=== PATIENT | male | born 1935 | race Caucasian/White ===

== ENCOUNTER 2016-09-16 14:25 | Emergency (ER) | payer OTHER, MEDICARE ==
[2016-09-16 14:52] LABS: COLOR YELLOW; LEUKOCYTE ESTERASE,URINE NEGATIVE (NEGATIVE); NITRITE,URINE NEGATIVE (NEGATIVE); PH,URINE 5.5 (5.0-7.5)
[2016-09-16 15:00] LABS: HYALINE CASTS 0-1 /lpf (0-1); MUCUS TRACE /lpf (NONE-1+); WBC,URINE NONE SEEN /hpf (0-3)
--- NOTE | 2016-09-16 15:53 | UCPHY ---
[id number] IN LAST 2 DAYS, INTERMITTENT JABBING PAIN, DENIES N/V/D, DENIES FEVERS, DENIES URINARY S/SX, REPORTS NORMAL BOWEL MOVEMENT TODAY HPI/ROS: Chief complaint: Abdominal pain HPI: 80-year-old male presenting with 2 days of intermittently severe right- sided abdominal and flank pain. Patient states he has been having slight pain occasionally for the past 6 weeks or so but pain became significantly worse yesterday. It does wax and wane but has not gone completely away. He states however that the pain did resolve just prior to his arrival to the urgent care. He was has a history of chronic renal disease and saw his renal doctor a week ago who told him that his renal function is at its baseline. He has also seen his primary care doctor several weeks ago for similar but milder symptoms and was told that should symptoms worsen he should present to the emergency department for further evaluation. He denies any fevers or chills. No nausea vomiting or diarrhea. No chest pain or shortness of breath. He has not had any constipation. ROS: 10 point Review of Systems is negative except as noted in the HPI. Physical exam: Gen: Awake, Alert, No Distress HEENT: Nose: no rhinorrhea Eyes: PERRLA, EOMI Mouth: Moist mucosa Neck: Supple, no JVD Chest: nontender, lungs clear to auscultation Heart: S1, S2 normal, no murmur Abd: Soft, non-tender, no guarding Back: no CVA tenderness, no midline tenderness Ext: no edema, non-tender Skin: no rash Neuro: CN II-XII intact, Sensation grossly intact, Strength 5/5 in bilateral upper and lower extremities - Medical/Surgical History Hx Asthma: No Hx Chronic Respiratory Disease: No Hx Diabetes: No Hx Cardiac Disease: Yes Hx Renal Disease: Yes Hx Cirrhosis: No Hx Alcoholism: No Hx HIV/AIDS: No Hx Splenectomy or Spleen Trauma: No Other PMH: MED HX-THYROID,CHOLESTEROL,HTN,KIDNEY FAILURE,DILATED CARDIAC MYOPATHY,. SURG-DANA,BOWEL OBSTRUCTION,PACE MAKER-DUAL CHAMBER - Family History Significant Family History: No pertinent family hx - Social History Smoking Status: Former smoker Constitutional: Initial Vital Signs Temperature (C) 35.5 C L 09/16/16 14:42 Heart Rate 67 09/16/16 14:42 Respiratory Rate 18 09/16/16 14:42 Blood Pressure 133/83 H 09/16/16 14:42 O2 Sat (%) 97 09/16/16 14:42 O2 Delivery Mode Room Air Allergies/Adverse Reactions: adhesive [Adhesive] Allergy (Verified 09/16/16 14:42) Home Medications: Medication Instructions Recorded Atenolol Unk Dose 11/21/15 Atorvastatin Unk Dose 11/21/15 Calcitrol Unk Dose 11/21/15 Enalapril Unk Dose 11/21/15 Levothyroxine Unk Dose 11/21/15 Pantoprazole Unk Dose 11/21/15 Medical Decision Making ED Course/Re-evaluation: CT abdomen pelvis without contrast. No stones. No findings to explain right- sided abdominal flank pain. Interpreted by Dr. Connors. 72-year-old male presenting with right-sided flank abdominal pain. He has a benign abdomen here with no pain. Does have some slight hematuria without infection. There are no stones on his CT with no hydroureter. Otherwise unremarkable CT scan of his bili with incidental findings but nothing acute. He is pain-free now. Will discharge with follow up with his primary care physician instructions return for any worsening. - Data Points Laboratory Results: 09/16/16 14:45 Urine Color YELLOW Urine Appearance CLEAR Urine pH 5.5 (5.0-7.5) Ur Specific [place] 1.010 (1.002-1.030) Urine Protein 2+ H (NEGATIVE) Urine Ketones NEGATIVE (NEGATIVE) Urine Blood TRACE H (NEGATIVE) Urine Nitrate NEGATIVE (NEGATIVE) Urine Bilirubin NEGATIVE (NEGATIVE) Urine Urobilinogen 0.2 EU (0.2-1.0) Ur Leukocyte Esterase NEGATIVE (NEGATIVE) Urine RBC 3-5 H /hpf (0-3) Urine WBC NONE SEEN /hpf (0-3) Ur Epithelial Cells TRACE /lpf (NONE-1+) Hyaline Casts 0-1 /lpf (0-1) Urine Mucus TRACE /lpf (NONE-1+) Urine Glucose NEGATIVE (NEGATIVE) Departure - Departure Disposition: Home, Routine, Self-Care Clinical Impression: Abdominal pain Condition: Good Instructions: Abdominal Pain (ED) Additional Instructions: Return Urgent Care or go to the nearest emergency department for worsening pain , nausea, vomiting, fevers, chills, or any other concerns. Otherwise follow up with your primary care physician in 3-4 days for any concerns. There is a small nodule in your left kidney which could be evaluated further. Follow up with your kidney doctor for further evaluation of this. Referrals: James Young, [Primary Care Provider] - As per Instructions - PQRS PQRS Measurement: 134: Depression screening and followup, PRIME MD-PHQ2 (12 years and older) Over the last 2 weeks, how often have you been bothered by any of the following problems? 1. Feeling down, depressed, or hopeless? 2. Little interest or pleasure in doing things? Patient answered no to both 1 and 2 130: Documentation of medications. Reviewed all patient medications, doses, route and frequency. 226: Do you smoke? No. 47: 65 and older: Advanced care planning. Patient designates surrogate decision maker as spouse Patient has advanced directive. 51: 18 years old and older with diagnosis of COPD, spirometry performance. Patient has no history of COPD 52: 18 years old and older with COPD and symptoms of COPD or FEV1<60% predicted prescribed a B Agonist. Spirometry not performed; equipment not available.
[2016-09-16 16:30] VITALS: BP 112/76; PULSE 66; RESP 16; TEMP 98.1; O2SAT 96
--- NOTE | 2016-09-16 16:49 | CT ---
CT Scan of the Abdomen and Pelvis (Without IV Contrast) Clinical Indications: Abdominal and right flank pain, possible kidney stone, history of kidney stone s, hematuria Technique: No intravenous contrast was given. Multidetector helical CT imaging is performed from th e diaphragm to the symphysis pubis. Dose reduction techniques were utilized. COMPARISON: August 27, 2008 Findings: Abdomen: There is no nephro or ureterolithiasis. There is no hydronephrosis or hydroureter. Both kidn eys demonstrate cortical thinning consistent with medical renal disease. There is atherosclerotic ray cification of the abdominal aorta, which involves the origin of both main renal arteries. There is a new small 9 mm dense cortical nodule associated with the mid left kidney that may represent a small h emorrhagic cyst or solid nodule that is felt unlikely to be the source for hematuria. There is a large duodenal diverticulum adjacent to the medial wall of the descending duodenum, that w ould likely obscure access to the patient's biliary tree if he ever required an ERCP. This is larger than in 2008. Since there is no adjacent edema, this is unlikely to represent a chronic perforated ul cer. Surgical clips in the gallbladder fossa are consistent with previous cholecystectomy. There is n o biliary obstruction. The liver and spleen are normal in size. There is no ascites, free air or evid ence of a bowel obstruction. The pancreas is grossly normal. There is coronary artery disease. Bipolar pacer leads are present in the heart. There is no pericardi al effusion. There are no basilar pulmonary nodules or pneumonia. Pelvis: The urinary bladder is unremarkable. No stones are present in the urinary bladder. The uri nary bladder base is mildly indented by the prostate. No free fluid in the pelvis. No masses are jad ntified. A normal appendix is identified. There is diverticulosis most concentrated in the sigmoid co gold without evidence of diverticulitis. There is fusion of both anterior SI joints. Impression: 1. No evidence of nephro or ureterolithiasis. Indeterminate new 9 mm left renal cortical dense nodule vs hemorrhagic cyst. 2. Normal appendix. 3. Large duodenal diverticulum 4. Coronary artery disease 5.If the patient is hypertensive he could possibly have renal artery stenosis related to atherosclero tic disease. Results discussed with Dr. Ruiz.
== END 2016-09-16 17:07 | disposition home or self-care (01) ==
LOC: CED 14:25
DX: R10.9 Unspecified abdominal pain (principal); N18.9 Chronic kidney disease, unspecified; Z87.891 Personal history of nicotine dependence; Z95.0 Presence of cardiac pacemaker
CPT/HCPCS: 74176; G0463; 81003-PO; 81015-PO; 99214-PO

== ENCOUNTER → 2016-10-10 | Outpatient (CLI) | payer OTHER, MEDICARE ==
--- NOTE | 2016-10-10 18:19 | US ---
Ultrasound Abdomen Retroperitoneum, Complete Clinical Indications: Z41.0, possible left renal mass. D41.02. Comparison: CT September 16, 2016. Findings: The right kidney measures 9.7 x 4 x 4.6 cm. The left kidney measures 9.7 x 3.9 x 4.9 cm. Both kidneys demonstrate no hydronephrosis, definite shadowing calculi, or perinephric fluid. Right renal cortical thickness 1 cm and left renal cortical thickness 1 cm. In the lateral cortex of the left kidney interpolar region, there is a 9- x 8- x 7-mm anechoic cyst, with well-defined kinney and a coustic enhancement, corresponding to the previous CT lesion. Images of the bladder demonstrate patent bilateral ureteral jets with color flow imaging. Prevoid bl adder volume 177 mL. Postvoid bladder residual is 27 mL. No shadowing bladder calculi. Impression: 1. No hydronephrosis. 2. Left renal cortical benign cyst, measuring 9 mm.
== END ==
LOC: FIMAGING 12:36
PROVIDERS: ATTEND Specialist
DX: N28.1 Cyst of kidney, acquired (principal)

== ENCOUNTER → 2016-10-15 | Outpatient (CLI) | payer OTHER, MEDICARE | LOC: BHFA 09:30 | PROVIDERS: ATTEND Internal Medicine Cardiovascular Disease | DX: R07.9 Chest pain, unspecified (principal) | CPT/HCPCS: 78452; 93017; A9500; J2785 ==

== ENCOUNTER 2016-10-29 09:05 | Emergency (ER) | payer OTHER, MEDICARE ==
[2016-10-29] MEDS ORDERED: OXYMETAZOLINE 30 ML NASAL SPRAY ONE (09:26)
[2016-10-29] MEDS ORDERED: SILVER NITRATE APPLICATOR 1 APPL TP ONE (09:27)
[2016-10-29 09:33] VITALS: RESP 18; TEMP 98
--- NOTE | 2016-10-29 09:36 | UCPHY ---
H & P Patient Type: Established Chief Complaint Nursing Narrative: bumped nose on coner of refride door bleeding ever since- denies LOC Time Seen by Provider: 10/29/16 09:18 HPI/ROS: CHIEF COMPLAINT: Epistaxis HISTORY OF PRESENT ILLNESS: The patient is a 81-year-old man who comes to the Urgent Care complaining of left-sided epistaxis. He states that he accidentally bumped his nose on the refrigerator this morning. He does not take blood thinners. Does have renal insufficiency history . He has not had any recent infection. He denies headache or loss of consciousness. REVIEW OF SYSTEMS: Constitutional: denies: chills, fever, recent illness, recent injury EENTM: See HPI Respiratory: denies: cough, shortness of breath Cardiac: denies: chest pain, irregular heart rate, lightheadedness, palpitations Gastrointestinal/Abdominal: denies: abdominal pain, diarrhea, nausea, vomiting, blood streaked stools Genitourinary: denies: dysuria, frequency, hematuria, pain Musculoskeletal: denies: joint pain, muscle pain Skin: denies: lesions, rash, jaundice, bruising Neurological: denies: headache, numbness, paresthesia, tingling, dizziness, weakness Hematologic/Lymphatic: denies: blood clots, easy bleeding, easy bruising Immunologic/allergic: denies: HIV/AIDS, transplant EXAM: GENERAL: Well-appearing, well-nourished and in no acute distress. HEAD: Atraumatic, normocephalic. EYES: Pupils equal round and reactive to light, extraocular movements intact, sclera anicteric, conjunctiva are normal. ENT: left nares significant bleeding, clot present, no hematoma. Small abrasion to nasal bridge, no crepitus or deformity. TMs normal, oropharynx clear without exudates. Moist mucous membranes. NECK: Normal range of motion, supple without lymphadenopathy or JVD. LUNGS: Breath sounds clear to auscultation bilaterally and equal. No wheezes rales or rhonchi. HEART: Regular rate and rhythm without murmurs, rubs or gallops. ABDOMEN: Soft, nontender, normoactive bowel sounds. No guarding, no rebound. No masses appreciated. BACK: No CVA tenderness, no spinal tenderness, step-offs or deformities EXTREMITIES: Normal range of motion, no pitting or edema. No clubbing or cyanosis. NEUROLOGICAL: Cranial nerves II through XII grossly intact. Normal speech, normal gait. 5/5 strength, normal movement in all extremities, normal sensation PSYCH: Normal mood, normal affect. SKIN: Warm, dry, normal turgor, no visible rashes or lesions. Source: Patient Exam Limitations: No limitations - Medical/Surgical History Hx Asthma: No Hx Chronic Respiratory Disease: No Hx Diabetes: No Hx Cardiac Disease: Yes Hx Renal Disease: Yes Hx Cirrhosis: No Hx Alcoholism: No Hx HIV/AIDS: No Hx Splenectomy or Spleen Trauma: No Other PMH: MED HX-THYROID,CHOLESTEROL,HTN,KIDNEY FAILURE,DILATED CARDIAC MYOPATHY,. SURG-DANA,BOWEL OBSTRUCTION,PACE MAKER-DUAL CHAMBER - Family History Significant Family History: No pertinent family hx - Social History Smoking Status: Former smoker Alcohol Use: Sober Drug Use: None Constitutional: Initial Vital Signs Temperature (C) 36.6 C 10/29/16 09:32 Heart Rate 85 10/29/16 09:32 Respiratory Rate 18 10/29/16 09:32 Blood Pressure 135/62 H 10/29/16 09:32 O2 Sat (%) 95 10/29/16 09:32 O2 Delivery Mode Room Air Allergies/Adverse Reactions: adhesive [Adhesive] Allergy (Verified 09/16/16 14:42) Home Medications: Medication Instructions Recorded Atenolol Unk Dose 11/21/15 Atorvastatin Unk Dose 11/21/15 Calcitrol Unk Dose 11/21/15 Enalapril Unk Dose 11/21/15 Levothyroxine Unk Dose 11/21/15 Pantoprazole Unk Dose 11/21/15 Medical Decision Making ED Course/Re-evaluation: The patient initially was treated with Afrin and a nasal clamp. His bleeding did not stop. I then packed his left near with a Afrin-soaked gauze. This seems to have worked. We will give him a road test. I instructed him to leave it in place for 24 hours and then remove it himself. He agrees with this plan. He is not on any blood thinners. We discussed indications for returning. Differential Diagnosis: Partial list of the Differential diagnosis considered include but were not limited to; epistaxis, trauma, fracture and although unlikely based on the history and physical exam, I also considered infection, posterior epistaxis. I discussed these differential diagnoses and the plan with the patient as well as the usual and expected course. The patient understands that the diagnosis is provisional and that in medicine we are not always correct and that further workup is often warranted. Usual and customary warnings were given. All of the patient's questions were answered. The patient was instructed to return to the emergency department should the symptoms at all worsen or return, otherwise to followup with the physician as we discussed. Departure - Departure Disposition: Home, Routine, Self-Care Clinical Impression: Anterior epistaxis Condition: Fair Instructions: Nosebleed (ED) Referrals: James Young DO [Primary Care Provider] - As per Instructions - PQRS PQRS Measurement: 134: Depression screening and followup, PRIME MD-PHQ2 (12 years and older) Over the last 2 weeks, how often have you been bothered by any of the following problems? 1. Feeling down, depressed, or hopeless? 2. Little interest or pleasure in doing things? Patient answered no to both 1 and 2 130: Documentation of medications. Reviewed all patient medications, doses, route and frequency. 226: Do you smoke? No. 47: 65 and older: Advanced care planning. Patient designates surrogate decision maker as spouse . Patient has advanced directive. 51: 18 years old and older with diagnosis of COPD, spirometry performance. Spirometry not performed; equipment not available. 52: 18 years old and older with COPD and symptoms of COPD or FEV1<60% predicted prescribed a B Agonist. Not applicable
[2016-10-29 12:29] VITALS: BP 132/62; PULSE 78; O2SAT 96
== END 2016-10-29 11:25 | disposition home or self-care (01) ==
LOC: CED 09:05
PROC: 2Y41X5Z Packing of Nasal Region using Packing Material (ICD-10-PCS; principal; 2016-10-29)
DX: R04.0 Epistaxis (principal); W22.09XA Striking against other stationary object, initial encounter; E03.9 Hypothyroidism, unspecified; E78.5 Hyperlipidemia, unspecified; I12.9 Hypertensive chronic kidney disease with stage 1 through stage 4 chronic kidney disease, or unspecified chronic kidney disease; N18.9 Chronic kidney disease, unspecified; I42.0 Dilated cardiomyopathy; Z95.0 Presence of cardiac pacemaker; Z87.891 Personal history of nicotine dependence
CPT/HCPCS: 30901; G0463; 99214-PO

== ENCOUNTER 2017-01-15 04:21 | Emergency (ER) | payer OTHER, MEDICARE ==
--- NOTE | 2017-01-15 04:32 | EDPHY ---
H & P Time Seen by Provider: 01/15/17 04:27 HPI/ROS: 81-year-old male with a history of hypertension hyperlipidemia, pacemaker presents complaining of chest pain with cough, sometimes little bit of mucus white in color. No fevers no chills. No leg pain no leg swelling Review of systems As per HPI General no fever no chills no weakness HEENT no eye pain no eye discharge. No eye redness, no sore throat Respiratory positive cough, no shortness of breath Cardiac positive chest pain, no peripheral edema GI no abdominal pain, no diarrhea, no constipation, no nausea, no vomiting no flank pain, no hematuria, no dysuria Musculoskeletal no myalgias, no joint pain Heme no easy bruising, no easy bleeding Endo no polyuria, no polydipsia Skin no rashes, no pruritus Neuro no syncope, no dizziness, no headaches Psych is no suicidal ideation, no homicidal ideation Source: Patient Exam Limitations: Physical impairment (Hard of hearing) - Personal History Current Tetanus/Diphtheria Vaccine: Yes - Medical/Surgical History Hx Asthma: No Hx Chronic Respiratory Disease: No Hx Diabetes: No Hx Cardiac Disease: Yes Hx Renal Disease: Yes Hx Cirrhosis: No Hx Alcoholism: No Hx HIV/AIDS: No Hx Splenectomy or Spleen Trauma: No Other PMH: MED HX-THYROID,CHOLESTEROL,HTN,KIDNEY FAILURE,DILATED CARDIAC MYOPATHY,. SURG-DANA,BOWEL OBSTRUCTION,PACE MAKER-DUAL CHAMBER - Family History Significant Family History: No pertinent family hx - Social History Smoking Status: Former smoker Alcohol Use: None Drug Use: None - Physical Exam Exam: 81-year-old male alert and oriented in no acute distress nontoxic appearance afebrile HEENT atraumatic normocephalic, extraocular muscles intact, anicteric Oropharynx negative for erythema negative exudate, tolerating own secretions Neck supple no meningismus Lungs clear to auscultation bilaterally Heart regular rate and rhythm with systolic murmur 2/6 chest pacemaker left upper Abdomen nondistended normoactive bowel sounds soft nontender Back no CVA tenderness, no step-offs, no spinal tenderness Extremities no cyanosis clubbing or edema Neuro alert and oriented, no focal deficits Constitutional: Initial Vital Signs Heart Rate 75 01/15/17 04:25 Respiratory Rate 18 01/15/17 04:25 Blood Pressure 159/93 H 01/15/17 04:25 O2 Sat (%) 96 05/18/17 04:25 O2 Delivery Mode Oxymizer Allergies/Adverse Reactions: adhesive [Adhesive] Allergy (Verified 01/15/17 04:39) Home Medications: Medication Instructions Recorded Atenolol Unk Dose 11/21/15 Atorvastatin Unk Dose 11/21/15 Calcitrol Unk Dose 11/21/15 Enalapril Unk Dose 11/21/15 Levothyroxine Unk Dose 11/21/15 Pantoprazole Unk Dose 11/21/15 Aspirin 81mg (*) 01/15/17 Benzonatate [Tessalon Pearles (RX)] 100 mg PO TID PRN #30 cap 01/15/17 Codeine Phosphate/Guaifenesin 10 ml PO Q6 PRN #120 ml 01/15/17 [Codeine-Guaifen 10-100 mg/5 ml] Doxycycline Hyclate 100 mg PO BID #14 tab 01/15/17 Medical Decision Making ED Course/Re-evaluation: Medical decision making and ER course Patient seen and evaluated for cough, chest pain Chest pain is only when patient coughs. EKG paced rhythm, morphology unchanged from 2016 Chest [id number] for infiltrate negative for effusion negative for evidence of CHF Labs BUN 50, creatinine 3.5 IV established Differential diagnosis URI, bronchitis, pneumonia, CHF There is no evidence of CHF on chest x-ray or exam Chest x-ray negative for pneumonia Initial troponin negative, 2 hour troponin also negative BNP slightly elevated 935 consistent with patient's baseline, chronic kidney disease Impression Bronchitis Plan Discharge Follow up with primary care physician in 1-2 days Tessalon Perles Cough syrup as needed Doxycycline twice daily x7 days - Data Points Laboratory Results: Laboratory Results 01/15/17 04:38 01/15/17 04:38 01/15/17 01/15/17 01/15/17 06:18 04:38 04:38 WBC RBC Hgb Hct MCV MCH MCHC RDW Plt Count MPV Neut % (Auto) Lymph % (Auto) [place] % (Auto) Eos % (Auto) Baso % (Auto) Nucleat RBC Rel Count Absolute Neuts (auto) Absolute Lymphs (auto) Absolute Monos (auto) Absolute Eos (auto) Absolute Basos (auto) Absolute Nucleated RBC Immature Gran % Immature Gran # PT 13.1 SEC SEC (12.0-15.0) INR 1.02 (0.83-1.16) APTT 30.6 SEC SEC (23.0-38.0) Sodium 142 mEq/L mEq/L (134-144) Potassium 4.5 mEq/L mEq/L (3.5-5.2) Chloride 107 mEq/L mEq/L (97-110) Carbon Dioxide 17 mEq/l L mEq/l (22-31) Anion Gap 18 mEq/L H mEq/L (8-16) BUN 50 mg/dL H mg/dL (7-23) Creatinine 3.5 mg/dL H mg/dL (0.7-1.3) Estimated GFR 17 Glucose 90 mg/dL mg/dL (70-100) Calcium 9.1 mg/dL mg/dL (8.5-10.4) Total Bilirubin 0.5 mg/dL mg/dL (0.1-1.4) AST 27 IU/L IU/L (17-59) ALT 25 IU/L IU/L (21-72) Alkaline Phosphatase 98 IU/L IU/L (38-126) Troponin I 0.016 ng/mL ng/mL 0.021 ng/mL ng/mL (0-0.034) (0-0.034) NT-Pro-B Natriuret Pep 935 pg/mL H pg/mL (0-450) Total Protein 7.3 g/dL g/dL (6.3-8.2) Albumin 4.2 g/dL g/dL (3.5-5.0) 01/15/17 04:38 WBC 5.96 10^3/uL 10^3/uL (3.80-9.50) RBC 4.20 10^6/uL L 10^6/uL (4.40-6.38) Hgb 13.1 g/dL L g/dL (13.7-17.5) Hct 38.4 % L % (40.0-51.0) MCV 91.4 fL fL (81.5-99.8) MCH 31.2 pg pg (27.9-34.1) MCHC 34.1 g/dL g/dL (32.4-36.7) RDW 12.8 % % (11.5-15.2) Plt Count 182 10^3/uL 10^3/uL (150-400) MPV 10.2 fL fL (8.7-11.7) Neut % (Auto) 51.5 % % (39.3-74.2) Lymph % (Auto) 23.8 % % (15.0-45.0) [place] % (Auto) 14.8 % H % (4.5-13.0) Eos % (Auto) 8.9 % H % (0.6-7.6) Baso % (Auto) 0.8 % % (0.3-1.7) Nucleat RBC Rel Count 0.0 % % (0.0-0.2) Absolute Neuts (auto) 3.07 10^3/uL 10^3/uL (1.70-6.50) Absolute Lymphs (auto) 1.42 10^3/uL 10^3/uL (1.00-3.00) Absolute Monos (auto) 0.88 10^3/uL H 10^3/uL (0.30-0.80) Absolute Eos (auto) 0.53 10^3/uL H 10^3/uL (0.03-0.40) Absolute Basos (auto) 0.05 10^3/uL 10^3/uL (0.02-0.10) Absolute Nucleated RBC 0.00 10^3/uL 10^3/uL (0-0.01) Immature Gran % 0.2 % % (0.0-1.1) Immature Gran # 0.01 10^3/uL 10^3/uL (0.00-0.10) PT INR APTT Sodium Potassium Chloride Carbon Dioxide Anion Gap BUN Creatinine Estimated GFR Glucose Calcium Total Bilirubin AST ALT Alkaline Phosphatase Troponin I NT-Pro-B Natriuret Pep Total Protein Albumin Medications Given: Discontinued Medications Albuterol/Ipratropium (Duoneb) 3 ml IH EDNOW ONE Stop: 01/15/17 05:21 Last Admin: 01/15/17 05:26 Dose: 3 ml Aspirin Buffered (Aspirin Ec) 81 mg PO EDNOW ONE Stop: 01/15/17 05:10 Last Admin: 01/15/17 05:22 Dose: 81 mg Departure - Departure Disposition: Home, Routine, Self-Care Clinical Impression: Bronchitis Condition: Good Instructions: Acute Bronchitis (ED) Referrals: Patient,NotPresent [Primary Care Provider] - As per Instructions Prescriptions: Benzonatate [Tessalon Pearles (RX)] 100 mg PO TID PRN #30 cap PRN Reason: Cough, Severe Codeine Phosphate/Guaifenesin [Codeine-Guaifen 10-100 mg/5 ml] 10 ml PO Q6 PRN # 120 ml PRN Reason: Cough, Severe Doxycycline Hyclate 100 mg PO BID #14 tab
[2017-01-15 04:46] LABS: % IMMATURE GRANULYOCYTES 0.2 % (0.0-1.1); ABSOLUTE IMMATURE GRANULOCYTES 0.01 10^3/uL (0.00-0.10); ADD DIFF? NO; ADD MORPH? NO; ADD SCAN? NO; ATYPICAL LYMPHOCYTE FLAG 10 (0-99); FRAGMENT RBC FLAG 0 (0-99); HEMATOCRIT 38.4 % (40.0-51.0); HEMOGLOBIN 13.1 g/dL (13.7-17.5); LEFT SHIFT FLG 0 (0-99); LIPEMIA HEMOLYSIS FLAG 90 (0-99); MEAN CELL HEMOGLOBIN 31.2 pg (27.9-34.1); MEAN CELL HEMOGLOBIN CONCENTR. 34.1 g/dL (32.4-36.7); MEAN CELL VOLUME 91.4 fL (81.5-99.8); MEAN PLATELET VOLUME 10.2 fL (8.7-11.7); PLATELET CLUMPS FLAG 10 (0-99); PLATELET COUNT 182 10^3/uL (150-400); RED CELL DISTRIBUTION WIDTH 12.8 % (11.5-15.2)
[2017-01-15 04:48] VITALS: TEMP 97.5
[2017-01-15 04:54] LABS: INR 1.02 (0.83-1.16); PROTIME(PATIENT) 13.1 SEC (12.0-15.0)
[2017-01-15 04:55] LABS: APTT 30.6 SEC (23.0-38.0)
--- NOTE | 2017-01-15 04:56 | CPEKG ---
Heart Rate: 68 RR Interval: 882 P-R Interval: 372 QRSD Interval: 168 QT Interval: 460 QTC Interval: 490 P [place]: 214 QRS [place]: -55 T Wave [place]: 137 EKG Severity - ABNORMAL ECG - EKG Impression: ATRIAL-VENTRICULAR DUAL-PACED COMPLEXES EKG Impression: FIRST DEGREE AV BLOCK EKG Impression: IVCD, CONSIDER ATYPICAL RBBB EKG Impression: LVH WITH SECONDARY REPOLARIZATION ABNORMALITY Electronically Signed By: Suad Granados 16-Jan-2017 11:39:01
[2017-01-15 04:59] LABS: ALBUMIN 4.2 g/dL (3.5-5.0); BILIRUBIN,TOTAL 0.5 mg/dL (0.1-1.4); CALCIUM 9.1 mg/dL (8.5-10.4); CREATININE 3.5 mg/dL (0.7-1.3); POTASSIUM 4.5 mEq/L (3.5-5.2); TOTAL PROTEIN 7.3 g/dL (6.3-8.2)
[2017-01-15 05:09] LABS: TROPONIN I 0.021 ng/mL (0-0.034)
[2017-01-15] MEDS ORDERED: ASPIRIN EC 81 MG TAB PO ONE (05:09)
[2017-01-15] MEDS ORDERED: ASPIRIN 81 MG CHEWABLE TAB ONE (05:19)
[2017-01-15] MEDS ORDERED: IPRATROPIUM/ALBUTEROL 3 ML DEYVIAL IH ONE (05:20)
[2017-01-15 05:33] VITALS: RESP 14
[2017-01-15 07:04] VITALS: BP 121/85; PULSE 70; O2SAT 94
== END 2017-01-15 07:02 | disposition home or self-care (01) ==
LOC: CED 04:21
DX: I10 Essential (primary) hypertension (principal); Z79.82 Long term (current) use of aspirin; Z87.891 Personal history of nicotine dependence; Z95.0 Presence of cardiac pacemaker
CPT/HCPCS: 71020-PO; 80053-PO; 83880-PO; 84484-PO; 85025-PO; 85610-PO; 85730-PO

== ENCOUNTER 2017-03-24 09:44 | Observation (INO) | payer OTHER, MEDICARE ==
--- NOTE | 2017-03-24 10:04 | CPEKG ---
Heart Rate: 66 RR Interval: 909 P-R Interval: 130 QRSD Interval: 160 QT Interval: 460 QTC Interval: 482 P [place]: 0 QRS [place]: -48 T Wave [place]: 136 EKG Severity - ABNORMAL ECG - EKG Impression: VENTRICULAR-PACED COMPLEXES EKG Impression: LEFT BUNDLE BRANCH BLOCK Electronically Signed By: Jacob Pak 25-Mar-2017 14:29:01
[2017-03-24 10:19] LABS: % IMMATURE GRANULYOCYTES 0.2 % (0.0-1.1); ABSOLUTE IMMATURE GRANULOCYTES 0.01 10^3/uL (0.00-0.10); ADD DIFF? NO; ADD MORPH? NO; ADD SCAN? NO; ATYPICAL LYMPHOCYTE FLAG 20 (0-99); FRAGMENT RBC FLAG 0 (0-99); HEMATOCRIT 34.6 % (40.0-51.0); LEFT SHIFT FLG 0 (0-99); LIPEMIA HEMOLYSIS FLAG 90 (0-99); MEAN CELL HEMOGLOBIN 31.7 pg (27.9-34.1); MEAN CELL HEMOGLOBIN CONCENTR. 34.7 g/dL (32.4-36.7); MEAN CELL VOLUME 91.3 fL (81.5-99.8); MEAN PLATELET VOLUME 10.1 fL (8.7-11.7); PLATELET CLUMPS FLAG 0 (0-99); PLATELET COUNT 189 10^3/uL (150-400); RED BLOOD CELL COUNT 3.79 10^6/uL (4.40-6.38); RED CELL DISTRIBUTION WIDTH 12.4 % (11.5-15.2)
[2017-03-24 10:36] LABS: CALCIUM 9.1 mg/dL (8.5-10.4); CREATININE 2.7 mg/dL (0.7-1.3); POTASSIUM 4.8 mEq/L (3.5-5.2)
--- NOTE | 2017-03-24 10:36 | EDPHY ---
H & P Stated Complaint: ELKINS AND LEFT VISUAL DECREASED THIS AM . ELKINS yesterday . Time Seen by Provider: 03/24/17 09:47 HPI/ROS: CHIEF COMPLAINT: Headache, elevated blood pressure and visual changes History by patient and his HISTORY OF PRESENT ILLNESS: 81-year-old man with a history of coronary artery disease, pacemaker, hypertension and end-stage renal disease not currently on dialysis who presents complaining of acute onset of headache associated with dark lines in his left field of vision which began suddenly while he was having breakfast. Patient states that he got up this morning and his blood pressure was running high. He walks on the treadmill thinking that might lower it and continued to be high. He had no symptoms while on the treadmill. By the time he arrived here his headache has improved but he still complains of dark lines in his left field of vision. He denies any diplopia. He denies any current chest pain, shortness of breath however over the past 2 days he has had 2 episodes of exertional angina related to yd work and walking on the treadmill which have resolved with a single nitroglycerin and rest. One week ago the patient was taken off his enalapril because his blood pressure was running low when he was getting symptomatic hypotension because of this. Since that time he says he has been feeling not right and he has been monitoring his blood pressure and it has been as high as 190. His says the diastolic has been around 80 or 90. He has not restarted the enalapril. REVIEW OF SYSTEMS: As in HPI, and all other systems reviewed and are negative Source: Patient, Family - Personal History Current Tetanus Diphtheria and Acellular Pertussis (TDAP): Yes - Medical/Surgical History Hx Asthma: No Hx Chronic Respiratory Disease: No Hx Diabetes: No Hx Cardiac Disease: Yes Hx Renal Disease: Yes Hx Cirrhosis: No Hx Alcoholism: No Hx HIV/AIDS: No Hx Splenectomy or Spleen Trauma: No Other PMH: MED HX-THYROID,CHOLESTEROL,HTN,KIDNEY FAILURE stage 5,DILATED CARDIAC MYOPATHY,. SURG-DANA,BOWEL OBSTRUCTION,PACE MAKER-DUAL CHAMBER - Social History Smoking Status: Former smoker - Physical Exam Exam: General Appearance: Alert, pleasant, elderly. Eyes: Pupils equal and round no pallor or injection. ENT, Mouth: Mucous membranes moist. Respiratory: Normal, effort, lungs are clear to auscultation. No wheezes, rales or rhonchi. Cardiovascular: Regular rate and rhythm. S1, S2, no murmurs gallops rubs appreciated Gastrointestinal: Abdomen is soft and nontender, no masses, bowel sounds normal. Back: No CVA tenderness, no bony tenderness Neurological: Awake, alert and oriented x 3, cranial nerves 2-12 intact, no field cuts, no pronator drift, normal gait, strength 5/5 and equal bilateral in the lower extremities, DTRs 2+ equal, heel to hunter intact Skin: Warm and dry, no rashes. Musculoskeletal: Neck is supple nontender. No deformities. Extremitie:s full range of motion, no edema, DP pulses 2+ and equal bilaterally Psychiatric: Patient has normal affect, there is no agitation. Constitutional: Initial Vital Signs Temperature (C) 36.7 C 03/24/17 09:45 Heart Rate 77 03/24/17 09:45 Respiratory Rate 16 03/24/17 09:45 Blood Pressure 176/92 H 03/24/17 09:45 O2 Sat (%) 97 03/24/17 09:45 O2 Delivery Mode Room Air Allergies/Adverse Reactions: adhesive [Adhesive] Allergy (Verified 03/24/17 09:55) Home Medications: Medication Instructions Recorded Atenolol [Tenormin 25 mg (*)] 25 mg PO HS 11/21/15 Atorvastatin Calcium [Lipitor 20 20 mg PO HS 11/21/15 mg (*)] Calcitriol [Calcitriol (*)] 0.25 mcg PO MOFR 11/21/15 Levothyroxine [Synthroid 25 mcg 25 mcg PO DAILY06 11/21/15 (*)] Pantoprazole Sodium [Protonix 40mg 40 mg PO DAILY PRN 11/21/15 (*)] Aspirin [Aspirin 81mg (*)] 81 mg PO HS 01/15/17 Herbals/Supplements -Info Only 1 ea PO DAILY 03/24/17 Multivitamins [Multivitamin (*)] 1 each PO DAILY@12 03/24/17 Sodium Bicarbonate [Na Bicarb] 650 mg PO BID 03/24/17 Medical Decision Making - Diagnostics EKG Interpretation: Paced rhythm at 66 Imaging Results: Imaging Impressions Head CT 03/24/17 10:33 Impression: 1. No acute intracranial findings. If symptoms persist and clinical suspicion warrants, consider MRI. 2. Diffuse cerebral atrophy with periventricular and subcortical low attenuation consistent with chronic microvascular ischemic gliosis. Findings discussed with Ame De Luna M.D. on March 24, 2017 at 10:50 a.m. Chest X-Ray 03/24/17 10:54 Impression: Nothing acute identified. Imaging: Discussed imaging studies w/ regional loss prevention manager Radiologist, I viewed and interpreted images myself ED Course/Re-evaluation: 81-year-old man with a history of hypertension, coronary artery disease, pacemaker presents with elevated blood pressure, headache, visual symptoms and intermittent exertional angina which is atypical for him. ECG year showed paced rhythm. Head CT read by the radiologist showed no evidence of acute bleed. Chest x-ray showed no evidence of congestive heart failure. Labs were notable for at renal function that was at baseline. Patient did have an elevated BNP which is up from prior. First troponin was negative. Patient remained asymptomatic in the emergency department. His blood pressure was high but not in the concerning range. I was concerned about the patient's headache and visual symptoms and elevated blood pressure for acute stroke however the patient's symptoms began over 24 hours ago and just worsened today. He was not eligible for tPA because of his duration of symptoms. There is no detectable deficits or visual field cuts on exam. There was no evidence of a field cut and his symptoms are purely subjective. However the patient did have persistence of these what he describes as dark lines in his left field of vision. It is unclear whether this is a neurologic problem or an ophthalmological problem and will need further evaluation. Is also concerned about the patient's angina which is a new pattern for him. Patient was given aspirin in the ED. He takes a baby aspirin at home. EKG was nondiagnostic because of his pacemaker and 1st troponin was negative. I discussed the case with Dr. Martinez, hospitalist salesperson hearing aids. Patient will be transferred to [facility] for for admission for further evaluation and treatment. I also discussed the case with Dr. Nagy, on-call for [facility] who recommended follow-up MRI or CTA and ophthalmology evaluation. - Data Points Laboratory Results: Laboratory Results 03/24/17 10:15 03/24/17 10:15 03/24/17 03/24/17 10:15 10:15 WBC 6.14 10^3/uL 10^3/uL (3.80-9.50) RBC 3.79 10^6/uL L 10^6/uL (4.40-6.38) Hgb 12.0 g/dL L g/dL (13.7-17.5) Hct 34.6 % L % (40.0-51.0) MCV 91.3 fL fL (81.5-99.8) MCH 31.7 pg pg (27.9-34.1) MCHC 34.7 g/dL g/dL (32.4-36.7) RDW 12.4 % % (11.5-15.2) Plt Count 189 10^3/uL 10^3/uL (150-400) MPV 10.1 fL fL (8.7-11.7) Neut % (Auto) 70.5 % % (39.3-74.2) Lymph % (Auto) 12.2 % L % (15.0-45.0) [place] % (Auto) 10.4 % % (4.5-13.0) Eos % (Auto) 6.2 % % (0.6-7.6) Baso % (Auto) 0.5 % % (0.3-1.7) Nucleat RBC Rel Count 0.0 % % (0.0-0.2) Absolute Neuts (auto) 4.33 10^3/uL 10^3/uL (1.70-6.50) Absolute Lymphs (auto) 0.75 10^3/uL L 10^3/uL (1.00-3.00) Absolute Monos (auto) 0.64 10^3/uL 10^3/uL (0.30-0.80) Absolute Eos (auto) 0.38 10^3/uL 10^3/uL (0.03-0.40) Absolute Basos (auto) 0.03 10^3/uL 10^3/uL (0.02-0.10) Absolute Nucleated RBC 0.00 10^3/uL 10^3/uL (0-0.01) Immature Gran % 0.2 % % (0.0-1.1) Immature Gran # 0.01 10^3/uL 10^3/uL (0.00-0.10) Sodium 139 mEq/L mEq/L (134-144) Potassium 4.8 mEq/L mEq/L (3.5-5.2) Chloride 106 mEq/L mEq/L (97-110) Carbon Dioxide 20 mEq/l L mEq/l (22-31) Anion Gap 13 mEq/L mEq/L (8-16) BUN 36 mg/dL H mg/dL (7-23) Creatinine 2.7 mg/dL H mg/dL (0.7-1.3) Estimated GFR 23 Glucose 98 mg/dL mg/dL (70-100) Calcium 9.1 mg/dL mg/dL (8.5-10.4) Troponin I 0.019 ng/mL ng/mL (0-0.034) NT-Pro-B Natriuret Pep 2650 pg/mL H pg/mL (0-450) Medications Given: Discontinued Medications Aspirin (Aspirin) 324 mg PO EDNOW ONE Stop: 03/24/17 12:24 Last Admin: 03/24/17 12:27 Dose: 324 mg Departure - Departure Disposition: [facility] Acute Clinical Impression: Angina pectoris, Elevated brain natriuretic peptide (BNP) level Stroke Qualifiers: CVA mechanism: unspecified Qualified Code(s): I63.9 - Cerebral infarction, unspecified Chronic renal failure Qualifiers: Chronic kidney disease stage: unspecified stage Qualified Code(s): N18.9 - Chronic kidney disease, unspecified Clinical Impression: (Ruled Out): Renal failure syndrome Condition: Good
[2017-03-24 10:51] LABS: TROPONIN I 0.019 ng/mL (0-0.034)
[2017-03-24] MEDS ORDERED: ASPIRIN 81 MG CHEWABLE TAB ONE (12:20)
[2017-03-24] MEDS ORDERED: ASPIRIN 81 MG CHEWABLE TAB PO ONE (12:23)
[2017-03-24] MEDS ORDERED: ONDANSETRON DISINTEGRATING 4 MG TAB PO PRN (15:21)
[2017-03-24] MEDS ORDERED: ONDANSETRON 4 MG/2 ML VIAL IVP PRN (15:21)
[2017-03-24] MEDS ORDERED: ACETAMINOPHEN 325 MG TAB PO PRN (15:21)
[2017-03-24] MEDS: ENALAPRIL MALEATE 2.5 MG TAB PO SCH (15:51)
--- NOTE | 2017-03-24 16:44 | GHP ---
[f rep st] HISTORY AND PHYSICAL DATE OF ADMISSION: 03/24/2017 CHIEF COMPLAINT: Headache, vision changes. HISTORY OF PRESENT ILLNESS: This is a 81-year-old man with multiple medical problems, who presents with multiple chief complaints. He notes that he has had some vision changes that started sometime yesterday, in his left eye. He d escribes a line which obstructs his vision when he looks to the left. He has never had this before. He has had cataract surgery, but no retinal surgeries. He does not have any numbness or weakness in his arms or his legs. No confusion associated with this. No change in his visual acuity. This has not changed since yesterday. He additionally had a headache. This is resolved. He has chronic angina. Yesterday, he took a nitroglycerin and his chest pain resolved. He ends up taking nitroglycerin about once a month. This has not changed and it was not any different. He has hypertension. He saw Dr. Rose last week. He noted that his blood pressure was slightly low, systolic of 108. He also gives a history of orthostatic hypotension. Dr. Rose stopped h is enalapril. He had been taking 2.5 mg every other day, previously. PAST MEDICAL/SURGICAL HISTORY: 1. Chronic kidney disease, followed by Dr. Rose baseline creatinine about 2.7 to 3.1. 2. Hypothyroid. 3. Coronary artery disease, status post stent 10 years ago. 4. 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 5. Hyperlipidemia. 6. Hypertension. MEDICATIONS: Please see medication reconciliation. ALLERGIES: Adhesive. SOCIAL HISTORY: He does not drink. He quit smoking in the distant past. He previously smoked ciga rs and a pipe. FAMILY HISTORY: Parents are . REVIEW OF SYSTEMS: A 10-point review of systems is conducted and is negative except per HPI. PHYSICAL EXAMINATION: VITAL SIGNS: Blood pressure 157/91, heart rate is 70, respiration rate 20, s aturating 97% on room air. Temperature 36.7. GENERAL: This patient is a pleasant man who is resti ng comfortably in a chair, in no acute distress. HEENT: Shows him to be normocephalic, atraumatic. CARDIOVASCULAR: Exam shows a regular rate and rhythm. He has a faint 1/6 dull, rumbling, systoli c murmur. PULMONARY: Exam shows lungs are clear to auscultation bilaterally. ABDOMEN: Soft, nont tucker, nondistended. SKIN: Exam shows no rash. : Exam shows no Henson. NEUROLOGIC: Exam shows him to be alert and oriented x3. He has mild questionable visual field cut in the left eye, though I think it is symmetric with his right and do not think that this is real cut. Otherwise, cranial nerves 2-12 are intact. Motor is intact in his upper and lower extremities. Sensation to light marleni ch is intact in his upper and lower extremities. PSYCHIATRIC: Exam shows normal mood and affect. LABORATORIES: CBC shows a hemoglobin of 12, otherwise normal. Bicarb is 20, creatinine is 2.7, BUN is 36. BNP is 2650. DATA: 1. I discussed this with Dr. Delgado. 2. I personally viewed and interpreted his chest x-ray. This shows him to have a dual-lead pacemak er in place. He has an atherosclerotic aorta. Heart size is normal. Lungs are unremarkable. 3. Head CT showed nothing acute. He does have some atrophy. 4. EKG, which I personally viewed and interpreted, shows he has a V-paced rhythm. IMPRESSION AND PLAN: This is a 81-year-old man admitted with angina as well as possible neurologic issues: 1. Angina: This seems to be chronic and stable. Not having any chest pain. EKG is un-interpretab le. Initial troponin is negative. Will go ahead and order another troponin for tomorrow. I have a sked Cardiology to see him as well. 2. Neurologic issues: I think that this is more likely ophthalmologic. Given his pacemaker as wel l as chronic kidney disease we are very limited in any diagnostics that we can perform. I will go a nd get a carotid ultrasound as well as echocardiogram (I noted his BNP is slightly higher than mac l). I have also asked Dr. Delgado to see him. He will see him tomorrow. 3. Hypertension, uncontrolled: He has stopped his enalapril recently, I will restart this as well as continue his atenolol. We will check with orthostatics, as that was one of the reasons that his enalapril was stopped. 4. Headache: This has resolved. He had a CT head which showed no evidence of a bleed. Will not w orkup any further. 5. Chronic kidney disease: He is stable. We will avoid nephrotoxins. We will recheck his basic m etabolic panel tomorrow morning, with starting low-dose enalapril. 6. Hypothyroid: Synthroid. 7. Hyperlipidemia: Atorvastatin. 8. Code status: He would like to be full code. /[id number]/MODL
--- NOTE | 2017-03-24 18:34 | GCON ---
[f rep st] CONSULTATION This is a well-known patient of [facility], who has history of significant coronary artery disease. He sanchez s chronic renal insufficiency. He has dyslipidemia. He has hypertension. He has diastolic dysfunc tion. He has a history of heart failure with a reduced ejection fraction. He has carotid artery di sease in the ranges of 20-40% typically when he has been studied in the past. In the past, back in 2011, he was having episodes of syncope and we were not able to find out exactly what the causes of that were. He was hospitalized at that time. He is known to have an abnormal nuclear stress test and now most recently was done on 10/15/2016. Sangeeta sharma has chronic angina. He gets angina sometimes when he exercises, other times he can exercise quite well without angina. On the nuclear stress test that was done on 10/15/2016, he had a large-sized severe intensity, fixed , but partially reversible, entire inferoapical defect consistent with infarction and periinfarction ischemia. Small, moderate-sized, reversible apical defect consistent with ischemia. Ejection frac tion 45%. Inferoapical hypokinesis. He has a dual chamber pacemaker in. That was placed back in 2014. He has a history of sleep apnea. He has been failed on both CPAP and BiPAP. He could not tolerate either one of those. His coronary artery disease includes PTCA of the LAD with stenting in 2003, and then in 2006 he had a 50% LAD stenosis. He had a diagonal branch stenosis that was high-grade and a cutting balloon was done. He has had careful followup. He, in 2014, went on to have a percutaneous intervention of the diagonal again. He has known hypert ension, known dyslipidemia. He has had hypothyroidism. I reviewed his old records for his pacemaker and he has normal function with 78 mode switches. He h as had VT in the past without symptoms that was nonsustained. The patient has chosen not to do geraldine nary angiography because of his significant renal insufficiency and we have been following him with the help of [facility]. Today, he comes in with neurologic complaints and blood pressure that was hard for him to control an d higher than normal with numbers in the 175-180 range. He had focal deficits of his vision on the left eye to the lateral side. He said these have much im proved now. He denies chest pain, shortness of breath, orthopnea PND, dyspnea on exertion. Denies pleuritic chest pain. He denies fevers chills, or cough. PROBLEM LIST: 1. Coronary artery disease with multiple interventions and stenting over the years from [id number]. 2. Ischemic cardiomyopathy with an ejection fraction in the 40% range. 3. Diastolic dysfunction. 4. Mild aortic insufficiency and aortic stenosis, mild mitral regurgitation. 5. History of normal pulmonary artery pressures. 6. Dyslipidemia. 7. Hypertension. 8. Chronic renal insufficiency. 9. Carotid artery disease. Right internal carotid artery; 40%. Left carotid bulb; 30% range. 10. History of syncope. 11. History of right visual field changes. 12. History of [id number] blood pressure today. 13. Dual-chamber pacemaker. 14. Abnormal nuclear study with severe entire inferoapical defect consistent with infarct and ische jordan, small apical defect. ASSESSMENT AND PLAN: This patient has known coronary disease and is having chronic angina. He has not wanted to follow up on his nuclear study, because of the fear and the prediction was when I have reviewed this with [facility] in the past, that he would almost certainly end up on dialysis for life if we went ahead with angiography. He does not want to accept that risk. Today, he is not having chest pain and I do not think we have to really go over the issues of whethe r or not he needs coronary angiography right now. What is much more pressing is his visual field, n eurologic problems, his renal insufficiency, and his blood pressure control. I am very worried if h is blood pressure gets away from us, it is going to hurt what little kidney function he has left. He is a remarkably intelligent man, who has taken great care of himself, and has been very cooperati ve of all of the many doctors he has interacted with. Overall, our goals are to control his blood pressure, preserve his renal function, see what is going on neurologically. I do not think this is the time when have to push hard to do coronary angiograp hy. I have taken the liberty of ordering 24-urine for protein and creatinine. I have ordered a renal ul trasound. We will have [facility] see him tomorrow and we will carefully go from there. REVIEW OF SYSTEMS: His 12-point review of systems is negative except as noted. PHYSICAL EXAMINATION: He has a physical examination that is unchanged and as documented. He has a cardiovascular physical examination that is unchanged. PLAN: We will follow him very closely with you. I have talked to him at length today and discussed the situation and the plans for his evaluation. /[id number]/MODL
[2017-03-24] MEDS ORDERED: PANTOPRAZOLE SODIUM 40 MG TAB PO PRN (19:20)
[2017-03-24] MEDS: SODIUM BICARBONATE 650 MG TAB PO SCH (20:05)
[2017-03-24] MEDS ORDERED: ATENOLOL 25 MG TAB PO SCH (21:00)
[2017-03-24] MEDS ORDERED: ASPIRIN 81 MG CHEWABLE TAB PO SCH (21:00)
[2017-03-24] MEDS ORDERED: ATORVASTATIN CALCIUM 20 MG TAB PO SCH (21:00)
[2017-03-25 04:35] LABS: % IMMATURE GRANULYOCYTES 0.3 % (0.0-1.1); ABSOLUTE IMMATURE GRANULOCYTES 0.02 10^3/uL (0.00-0.10); ADD DIFF? NO; ADD MORPH? NO; ADD SCAN? NO; ATYPICAL LYMPHOCYTE FLAG 10 (0-99); FRAGMENT RBC FLAG 0 (0-99); HEMATOCRIT 34.9 % (40.0-51.0); HEMOGLOBIN 11.9 g/dL (13.7-17.5); LEFT SHIFT FLG 0 (0-99); LIPEMIA HEMOLYSIS FLAG 90 (0-99); MEAN CELL HEMOGLOBIN 31.2 pg (27.9-34.1); MEAN CELL HEMOGLOBIN CONCENTR. 34.1 g/dL (32.4-36.7); MEAN CELL VOLUME 91.4 fL (81.5-99.8); MEAN PLATELET VOLUME 10.4 fL (8.7-11.7); PLATELET CLUMPS FLAG 0 (0-99); PLATELET COUNT 170 10^3/uL (150-400); RED BLOOD CELL COUNT 3.82 10^6/uL (4.40-6.38); RED CELL DISTRIBUTION WIDTH 12.4 % (11.5-15.2)
[2017-03-25 04:39] LABS: ANION GAP 13 mEq/L (8-16); CALCIUM 9.3 mg/dL (8.5-10.4); CARBON DIOXIDE 18 mEq/l (22-31); CHLORIDE 111 mEq/L (97-110); CREATININE 2.7 mg/dL (0.7-1.3); GLOMERULAR FILTRATION RATE 23; GLUCOSE 82 mg/dL (70-100); POTASSIUM 4.7 mEq/L (3.5-5.2); SODIUM 142 mEq/L (134-144)
[2017-03-25 04:52] LABS: TROPONIN I 0.021 ng/mL (0-0.034)
[2017-03-25] MEDS ORDERED: LEVOTHYROXINE 25 MCG TAB PO SCH (06:00)
[2017-03-25 07:37] VITALS: TEMP 97.6
[2017-03-25] MEDS: ENALAPRIL MALEATE 2.5 MG TAB PO SCH (08:13)
[2017-03-25] MEDS: SODIUM BICARBONATE 650 MG TAB PO SCH (08:14)
--- NOTE | 2017-03-25 09:00 | ECHO ---
[id number] + + [address] : : [place] [address] : : [phone] + + Adult Echocardiographic Report + + :Name: ALICE FLEMING LStudy Date: 03/24/2017 03:40 PM : : Hospital Admission Number: [id number] : :: 1935 Gender: Male Height: 71 in : :Age: 81 yrs Race: WH,White Weight: 167 lb : :Reason For Study: Chest pain : : BSA: 2.0 meters2: :History: Pacer : + + MMode/2D Measurements \T\ Calculations LVIDd: 4.8 cm EDV(Teich): Ao root diam: LVOT diam: 2.6 cm 109.4 ml 4.2 cm LVOT area: LA dimension: 5.5 cm2 3.8 cm LVLd ap4: 8.8 cm SV(MOD-sp4): EDV(MOD-sp4): 32.0 ml 87.0 ml LVLs ap4: 7.9 cm ESV(MOD-sp4): 55.0 ml EF(MOD-sp4): 36.8 % Normal Measurement Values: + + :LVIDd (3.5-5.7cm) IVSd (0.6-1.1cm) LVPWd (0.6-1.1cm) Aortic Root (2.0-3.7cm)Left Atrium (1.5-4.0cm): :LV Vol(d) (76-115ml) LV Vol(s) (29-48ml) Ejec Fraction (50-65%)PV Steven (0.6- 1.2m/s) TV Steven (0.4-1.0m/s) : :MV E Steven (0.8-1.0m/s)MV A Steven (0.3-1.0m/s)LVOT Steven (0.7-1.2m/s) Asc Ao Steven ( 0.9-1.8m/s) : + + Doppler Measurements \T\ Calculations MV E max steven: Ao mean P.0 mmHgLV V1 max: SV(LVOT): 43.9 cm/sec Ao V2 mean: 68.1 cm/sec 91.3 ml MV A max steven: 123.5 cm/sec LV V1 max P.0 cm/sec Ao V2 VTI: 33.9 cm 1.9 mmHg MV E/A: 0.39 JEANE(I,D): 2.7 cm2 LV V1 mean P.0 mmHg LV V1 mean: 42.6 cm/sec LV V1 VTI: 16.7 cm Left Ventricle The left ventricle is normal in size. There is normal left ventricular wall thickness. EF estimate is 25-30%. Septal motion is consistent with conduction abnormality. LV entire septal wall and inferior wall including apical segments are akinetic. Right Ventricle The right ventricle is normal in size and function. There is a pacemaker lead in the right ventricle. Atria The left atrium is mildly dilated. Right atrial size is normal. The interatrial septum is intact with no evidence for an atrial septal defect. Mitral Valve There is mild mitral annular calcification. There is no evidence of mitral valve prolapse. There is no mitral valve stenosis. There is mild mitral regurgitation. Tricuspid Valve Normal tricuspid valve. There is mild tricuspid regurgitation. Right ventricular systolic pressure is normal. Aortic Valve Moderate AV calcification. Mild valvular aortic stenosis. AV max PG is 13mmHG. AV mean PG is 7mmHG. There is no aortic insufficiency. Pulmonic Valve The pulmonic valve is normal in structure and function. Mild pulmonic valvular regurgitation. Great Vessels Borderline aortic root dilatation. Pericardium/Pleural There is no pericardial effusion. Conclusion A complete two-dimensional transthoracic echocardiogram was performed (2D, M-mode, Doppler and color flow Doppler). Compared to the previous echo of 07/16, the EF has worsened. LV entire septal wall and inferior wall including apical segments are akinetic. EF estimate is 25-30%. Septal motion is consistent with conduction abnormality. There is a pacemaker lead in the right ventricle. The left atrium is mildly dilated. There is mild mitral annular calcification. There is mild mitral regurgitation. There is mild tricuspid regurgitation. Right ventricular systolic pressure is normal. Moderate AV calcification. Mild valvular aortic stenosis. AV max PG is 13mmHG. AV mean PG is 7mmHG. The aortic valve gradient and the degreee of aortic stenosis may be underestimated due to low cardiac output/reduced LV systolic function. Mild pulmonic valvular regurgitation. Borderline aortic root dilatation. Final Reading Physician: Blane Higgins signed on 03/25/2017 08:58 AM Ordering Physician: Lucas Carreno Performed By: Liliana Temple RDCS
--- NOTE | 2017-03-25 11:34 | PDCONSULT ---
Import Export Agent Note: HOSPITAL NEUROLOGY CONSULT REQUESTING: Lucas Carreno MD REASON: visual disturbance HPI: 81 year old right-handed man with a history of CAD, HTN, HLD, PPM, CKD 4 presented to our facility yesterday due to visual disturbance and chest discomfort (chronic). The morning of the day prior to admission, the patient states he noted a vertical line in the temporal aspect of his visual field of the left eye only. He states it is a dark blurry line. It is not a dense field cut. The line doesn't seem to move around. It resolved overnight here in hospital. He denies any floaters or flashes. No pain in the eye. No diplopia. Visual acuity is at baseline. He did not have any speech/language disturbance, weakness, sensory loss, gait change, vestibular symptoms, headache. No jaw claudication, scalp tenderness, fevers, joint pain, rashes. No injury to the eye. No prior episodes of this nature. ROS: As per the HPI, otherwise a complete 12 point ROS was performed and is negative ALLERGIES AND MEDS: As recorded in the EMR - reviewed and reconciled PFSH: As per the intake H&P by Dr. Carreno from yesterday. EXAM: VS reviewed in EMR GEN: WDWN laying in NAD HEENT: NCAT, sclera anicteric, conjunctiva not injected, MMM, oropharynx clear, no scalp tenderness NECK: supple, nontender, no meningismus CV: RRR s1 s2 wo m/r/c/g. Carotid pulses 2+ wo bruit NEURO: MS: awake, alert, oriented to all spheres. Speech nondysarthric. No language disturbance. Follows commands. Attends to both sides. Recent/remote memory grossly intact. Mood euthymic. Good fund of knowledge. CN: pupils 4mm round and reactive. Fundi with sharp discs. VFF. Primary gaze centered. Full ocular motility. Facial sensation preserved. Face symmetric. Hearing grossly intact to finger rub. Palatoglossal movements intact. Shoulder shrug and head turn strong. MOTOR: normal bulk/tone. No adventitial movements. Full power throughout. SENSORY: intact to all modalities throughout. No extinction. COORD: no ataxia FN/HS. Beth preserved. Romberg neg. REFLEX: plantars down. No clonus. Absent ankle jerks, other DTRS 2/4. GAIT: rises unassisted. Narrow base. Intact stride length/heel strike/toe lift /arm swing. Turns with 3 steps. DATA REVIEW: Labs reviewed in EMR Carotid doppler - no hemodynamically significant stenosis of BICAs PERSONALLY INTERPRETED RESULTS AND DATA: None IMPRESSION AND RECOMMENDATIONS: // TRANSIENT MONOCULAR VISUAL DISTURBANCE Patient with a vertical line in the temporal aspect of his visual field in the left eye only. Given the monocular nature, and the formed line, I suspect this is more ocular in nature than neurologic. May be some vitreal pathology or the like. Doesn't seem consistent with amaurosis fugax. Carotid dopplers without any significant stenosis. Would continue with vascular risk factor optimization as outpatient. Followup with ophthalmology as outpatient. No further neurologic workup (could not have any further workup anyway -CTA contraindicated due to low GFR, unable to do MRI due to PPM).
--- NOTE | 2017-03-25 13:07 | SOAPPROG ---
SOAP Progress Note Assessment/Plan: Assessment:Plan: Note dictated CKD stage 4 -now back to prior baseline with discontinuation of DRE-i -creatinine down from 3.1 to 2.7 -he had symptomatic hypotension as outpatient that prompted discontinuation of his DRE-i on 03/17/[address] Rose -sodium bicarbonate was started at that time -he then developed ELKINS and visual symptoms prompting ER evaluation and hospital admission -BP with these symptoms were elevated at home on 03/23 and 03/24/17 -BP as high as 176/92 in ED yesterday -he received one dose of enalapril 2.5 mg yesterday and none today -his ELKINS and eye symptoms are better -BP's today are 120/82 and 126/102 -I would recommend to leave him off the DRE-i and the bicarbonate -follow home BP's -He was asked to bring in those readings to Nephrology so we can decide how we want to adjust his medications -I would leave him on the Coreg due to his decreased EF -from both the renal function point of view as well as the symptom point of view, he was not tolerating the enalapril 2.5mg -I suspect the ELKINS and eye symptoms provoked the increased BP, not the other way around -he can complete the 24 hour urine as an outpatient and bring it in to the Nephrology office when done 03/25/17 13:08 Objective: Vital Signs Temp Pulse Resp BP Pulse Ox 36.4 C 77 20 126/102 H 96 03/25/17 07:31 03/25/17 07:31 03/25/17 07:31 03/25/17 07:31 03/25/17 07:31 Laboratory Results 03/25/17 04:05 03/25/17 04:05 03/24/17 03/25/17 03/26/17 05:59 05:59 05:59 Intake Total 800 Output Total 800 400 Balance 0 -400 ICD10 Worksheet Patient Problems: Problems Problem Status Onset Angina pectoris Acute Chronic renal failure Acute Elevated brain natriuretic peptide (BNP) level Acute Stroke Acute Anemia Active Chronic kidney disease stage 3 Active Pneumonia Active Renal failure syndrome Active
[2017-03-25 13:20] VITALS: BP 127/77; PULSE 75; RESP 24; O2SAT 98
--- NOTE | 2017-03-25 13:51 | GCON ---
[f rep st] CONSULTATION NEPHROLOGY CONSULTATION DATE OF CONSULTATION: 03/25/2017 REASON FOR CONSULTATION: 1. Hypertension. 2. Stage 4 chronic kidney disease. RECOMMENDATION: 1. Stop enalapril. 2. Stop sodium bicarbonate. 3. Continue remainder of his current medications. 4. Avoid nonsteroidals and IV contrast. 5. Home blood pressure monitoring. 6. Patient to complete a 24-hour urine collection, which I think he can do safely at home. 7. Call in blood pressures to the nephrology clinic, so that further adjustment of his medication c an be made if needed. HISTORY: The patient is a 81-year-old male, well known to Dr. Rose for his chronic kidney dise ase. His chronic kidney disease dates back at least to 2008, when his creatinine was documented in the 1.7 to 2.1 range. He has had stable chronic kidney disease with creatinines in the mid 2 range since 2011. He has shown no signs of progression since that time. He did have increases in his cre atinine, up to 3.1 noted in 2017. This, as well as low blood pressures identified in the office and at home, as well as symptoms of dizziness and presyncope, prompted to discontinuation of his enalap ril last week, when he saw Dr. Rose on March 17, 2017. At that time, his sodium bicarbonate was restarted, as the patient had stopped that at home. The patient had blood pressures that he noted that were somewhat up and down following this medicati on change. 24 hours prior to admission, the patient developed headache and visual changes. He note d with these symptoms his blood pressure was more elevated. His symptoms continued to where he soug ht medical attention yesterday in the emergency department. In the emergency room, his blood pressure was found to be as elevated as 176/92. Elevated blood pre ssures persisted. He was evaluated by Neurology for his visual symptoms. Consultation by Dr. Mohan Delgado, felt his symptoms were more ocular in nature than neurologic, as they were affecting his l eft eye only. There was concern there could be some vitreal pathology or retinal pathology. Sympto ms did not seem to be consistent with amaurosis fugax. Echocardiogram as well as carotid Dopplers were performed. Carotid Dopplers demonstrated no evidenc e of flow-limiting stenosis, with stable partially calcified plaque bilaterally at the carotid bulb. Echocardiogram revealed left ventricular ejection fraction of 25% to 30%. Akinetic septal inferio r wall and apex in the left ventricle, with interval worsening of his ejection fraction since a stud y performed in July of 2016. The patient was restarted on his enalapril with the first dose given on 03/24. He has not received any dose today. Blood pressures so far this morning have been 120/82 and 126/102. PAST MEDICAL HISTORY: Stage 4 chronic kidney disease, proteinuria, hyperparathyroidism, syncope, pa cemaker, pacemaker revision, hypertension, pancreatitis, small-bowel obstruction, hyperlipidemia, co ronary artery disease, status post stenting, cholecystitis, congestive heart failure, hyperlipidemia , hypothyroidism. SURGICAL HISTORY: Pacemaker, PTCA with stenting, cholecystectomy, exploratory laparotomy with lysis of adhesions. FAMILY HISTORY: Mother at 80 years of age. She had a pacemaker and diabetes. Father at 72. He had kidney failure and in 1960. His sister had end-stage renal disease, and was on dialysis. His brother had end-stage renal disease, and evidently was on dialysis for about 10 year s. He has 2 children and 5 grandchildren. SOCIAL HISTORY: Former smoker. He drinks wine. He is . He is retired. USUAL MEDICATIONS: Include aspirin 81 mg daily, fish oil 1000 mg 2 capsules daily, iron every 2 day s, levothyroxine 25 mcg daily, atenolol 25 mg once daily, centrum Silver, pantoprazole 40 mg daily p .r.n., enalapril 2.5 mg daily, atorvastatin 20 mg daily, calcitriol 0.25 mcg 1 capsule Thursday and , as well as sodium bicarbonate. ALLERGIES: No known documented allergies. REVIEW OF SYSTEMS: Negative except for that included in the Present Illness. He states his eye sym ptoms are resolving. LABS: Show creatinine stable at his prior baseline of 2.7. Hematocrit 34. PHYSICAL EXAMINATION: VITAL SIGNS: Pulse 77, respirations 20, blood pressure 126/102, base tempera ture is 36.4. HEENT: Exam remarkable for cataract surgery. Atraumatic, normocephalic. NECK: Unr emarkable. Carotid upstrokes are normal without bruits. HEART: Regular with a 2/6 holosystolic mur mur. LUNGS: Clear to auscultation. ABDOMEN: Benign. EXTREMITIES: Free of edema. DIAGNOSTIC STUDIES: Renal ultrasound is remarkable for symmetric kidneys, with a right kidney of 10 .6, and left kidney 9.9 cm, with cortical thinning. Postvoid residual was only 91 mL. ASSESSMENT: Hypertension. It is not clear whether this was precipitated by the eye symptoms and he adache, or was because of those symptoms. I suspect that his elevated blood pressure readings were secondary to the headache and eye symptoms he was experiencing. His blood pressure looks good right now, after just 1 dose of enalapril. It is hard to imagine that is a cause and effect with just a single doses such a low dose of that DRE inhibitor. He was symptomatic with low blood pressures whi le he was on it. Since discontinuation, he was on sodium bicarbonate. I would think the sodium al d may be making his blood pressure worsen. Obviously, it could precipitate issues with his congesti ve heart failure. I would like to keep him off the enalapril for now, and simply stop his sodium bi carbonate, and see what his blood pressure does based on home readings. If he does need to go back on additional agents for blood pressure control and/or his heart failure, I would have him go on an even lower dose of the DRE inhibitor, or use a small dose of losartan. We will have to see what his blood pressure will tolerate. As I stated, we will stop the sodium bicarbonate, as that could be exacerbating issues with both vol ume blood pressure, congestive heart failure, and BNP readings. A 24-hour urine has been ordered by Dr. Pak. I think the patient could safely complete that stud y at home. The patient is anxious for discharge. I will leave it up to the hospital service to decide whether the patient is stable for that. /[id number]/MODL
--- NOTE | 2017-03-25 14:06 | GDS ---
[f rep st] DISCHARGE SUMMARY ALL DIAGNOSES: 1. Headache. 2. Left eye visual changes. 3. Chronic angina. 4. Uncontrolled hypertension. 5. Chronic kidney disease. 6. Hypothyroid. 7. Hyperlipidemia. 8. 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 HOSPITAL COURSE: A 81-year-old man admitted with left-sided visual changes, headache, uncontrolled blood pressure. 1. Left-sided visual changes: He described a vertical line in his left eye on the left side. He w as seen by Neurology, who felt that this was not neurologic. He had carotid ultrasounds, which show ed no evidence of significant stenosis. I think that this is probably ophthalmologic. Regardless, it is resolved. He has a followup to see Dr. Wilson, his planning coordinator, in 6 days after discharg e. 2. Chronic angina: This is really unchanged for him. He takes nitroglycerin as needed. 3. Headache: This has resolved. Likely due to high blood pressure. 4. Hypertension, uncontrolled: Got 1 dose of enalapril with significant response. He had been hyp otensive and symptomatic on enalapril previously. We will hold this on discharge. We will plan to continue his atenolol on discharge. 5. Congestive heart failure, systolic, EF 25%: This is compensated. He is currently not on any di uretics, and does not need them at this point. Hypertensives as noted above are incorrect. He will be changed to Coreg 12.5 mg p.o. b.i.d. I have discussed this with Dr. Pak, and this is with Dr Shayne Ennis has recommended. This is more appropriate for his heart failure. We will not place him on an DRE inhibitor because of his kidney disease. 6. Coronary artery disease: We will continue his aspirin and atorvastatin. Beta blayne, as above . /[id number]/MODL
--- NOTE | 2017-03-25 16:31 | SOAPPROG ---
IVAN Progress Note Assessment/Plan: Assessment: 1. Coronary artery disease 2. Carotid artery disease 3. Peripheral vision loss left eye 4. Problem 4. Hypertension Problem 5. Dyslipidemia Problem 6. Chronic renal insufficiency Problem 7. Fatigue. Problem 8. Chronic stable angina. He has known coronary artery disease with stenting since the early . He has angina when he exercises He has an abnormal nuclear stress test He is not getting coronary angiography because does not want to developed renal failure The renal service is felt that coronary angiography could tip him into dialysis for the rest of his life. He is not want a risk that whatsoever. So he is on medical therapies careful exercise he watches his angina he uses nitro as needed. This has not gotten any worse right now recently. He is here for his loss of vision. It is improved he has been seen by the Neurology service. Plan is going to be discharged if he is high doctor within a week's time. His has gone down to talk to his eye doctor get the appointment and that is all been secured. He and his gone over prevention activity diet. If he develops any issues she can get right back to be. I am very concerned with him. All Plan: 03/25/17 16:29 Subjective: His eye symptoms have improved. He is not back to normal but he is much better. I am here with have answered all her questions. He would like very much to go home right now. His blood pressure is not well controlled think we will wait want to make sure renal sees him the evaluate him manages his blood pressure carefully. We do not want to diminishes renal function in any way shape or form. I am very concerned about him overall. There is no sign of atrial fibrillation No sign of any atrial arrhythmias causing neurologic damage He has been seen by the neuro service. Objective: Vital Signs Temp Pulse Resp BP Pulse Ox 36.4 C 75 24 H 127/77 H 98 03/25/17 12:00 03/25/17 12:00 03/25/17 12:00 03/25/17 12:00 03/25/17 12:00 Laboratory Results 03/25/17 04:05 03/25/17 04:05 03/24/17 03/25/17 03/26/17 05:59 05:59 05:59 Intake Total 800 Output Total 800 400 Balance 0 -400 Physical Exam - Physical Exam General Appearance: alert, no apparent distress Neck: full range of motion, supple Respiratory: rhonchi Cardiac/Chest: regular rate, rhythm, systolic murmur Abdomen: non-tender, soft, No organomegaly Skin: warm/dry Lymphatic: no adenopathy Neuro/Psych: alert, normal mood/affect ICD10 Worksheet Patient Problems: Problems Problem Status Onset Anemia Active Chronic kidney disease stage 3 Active Pneumonia Active Renal failure syndrome Active Angina pectoris Acute Chronic renal failure Acute Elevated brain natriuretic peptide (BNP) level Acute Stroke Acute
[2017-03-27] MEDS ORDERED: CALCITRIOL 0.25 MCG CAP PO SCH (09:00)
== END 2017-03-25 14:10 | disposition home or self-care (01) ==
LOC: CED 09:44 → CEDHOLD 11:57 → F2N 14:42 → F2W 20:42
PROVIDERS: ADMIT Student in an Organized Health Care Education/Training Program; ATTEND Student in an Organized Health Care Education/Training Program
DX: R51 Headache (principal); H53.9 Unspecified visual disturbance; I13.0 Hypertensive heart and chronic kidney disease with heart failure and stage 1 through stage 4 chronic kidney disease, or unspecified chronic kidney disease; I25.110 Atherosclerotic heart disease of native coronary artery with unstable angina pectoris; N18.9 Chronic kidney disease, unspecified; E03.9 Hypothyroidism, unspecified; E78.5 Hyperlipidemia, unspecified; Z95.0 Presence of cardiac pacemaker; I50.22 Chronic systolic (congestive) heart failure
CPT/HCPCS: 70450; 71020; 76770; 93005; 93306; 93880; 99285; G0378; 80048-PO; 83880-PO; 84484-PO; 85025-PO

== ENCOUNTER → 2017-06-23 | Outpatient (CLI) | payer OTHER, MEDICARE | LOC: BHFA 13:00 | PROVIDERS: ATTEND Internal Medicine Cardiovascular Disease | DX: R09.89 Other specified symptoms and signs involving the circulatory and respiratory systems (principal) | CPT/HCPCS: 78472; A9560 ==

== ENCOUNTER → 2017-09-15 | Outpatient (CLI) | payer OTHER, MEDICARE | LOC: BHFA 09:30 | PROVIDERS: ATTEND Internal Medicine Cardiovascular Disease | DX: I25.10 Atherosclerotic heart disease of native coronary artery without angina pectoris (principal) | CPT/HCPCS: 78452; 93017; A9500; J2785 ==

== ENCOUNTER 2017-10-22 05:25 | Observation (INO) | payer OTHER, MEDICARE ==
[2017-10-22] MEDS ORDERED: NS 1,000 ML IV ONE (05:29)
[2017-10-22] MEDS ORDERED: ONDANSETRON 4 MG/2 ML VIAL IVP ONE (05:29)
[2017-10-22 06:00] LABS: PLATELET COUNT 137 10^3/uL (150-400)
[2017-10-22] MEDS ORDERED: MECLIZINE HCL 25 MG TAB PO ONE (06:10)
--- NOTE | 2017-10-22 06:24 | EDPHY ---
H & P Stated Complaint: room spinning awoke from sleep Source: Patient, EMS Exam Limitations: No limitations - Personal History Current Tetanus/Diphtheria Vaccine: Yes Current Tetanus Diphtheria and Acellular Pertussis (TDAP): Yes - Medical/Surgical History Hx Asthma: No Hx Chronic Respiratory Disease: No Hx Diabetes: No Hx Cardiac Disease: Yes Hx Renal Disease: Yes Hx Cirrhosis: No Hx Alcoholism: No Hx HIV/AIDS: No Hx Splenectomy or Spleen Trauma: No Other PMH: MED HX-THYROID,CHOLESTEROL,HTN,KIDNEY FAILURE stage 5,DILATED CARDIAC MYOPATHY,. SURG-DANA,BOWEL OBSTRUCTION,PACE MAKER-DUAL CHAMBER - Social History Smoking Status: Former smoker Time Seen by Provider: 10/22/17 05:28 HPI/ROS: HPI The patient presents brought in by ambulance from his home for dizziness and nausea. The patient went to bed last night and was feeling well. He woke about 1 hr prior to presentation and felt sudden onset of dizziness. He says he feels as if his body is moving, though it is not. This is associated with nausea. Symptoms are exacerbated with changes in position. He does not have a headache, changes in his vision. He has no prior history of similar. REVIEW OF SYSTEMS Constitutional: No fever, no chills. Eyes: No discharge. ENT: No sore throat. Cardiovascular: No chest pain, no palpitations. Respiratory: No cough, no shortness of breath. Gastrointestinal: No abdominal pain, no vomiting. Genitourinary: No hematuria. Musculoskeletal: No back pain. Skin: No rashes. Neurological: No headache. PMHx: Hypertension, chronic kidney disease, hypothyroidism Soc Hx: Housed with his PHYSICAL General Appearance: Alert, no distress Eyes: Pupils equal and round no pallor or injection ENT, Mouth: Mucous membranes moist Respiratory: There are no retractions, lungs are clear to auscultation Cardiovascular: Regular rate and rhythm Gastrointestinal: Abdomen is soft and non-tender, no masses, bowel sounds normal Neurological: A&O, moves all extremities Skin: Warm and dry, no rashes Musculoskeletal: Neck is supple non tender Extremities: symmetrical, full range of motion Psychiatric: Patient is oriented X 3, there is no agitation (Riguzzi,Caridad) Constitutional: Initial Vital Signs Temperature (C) 36.5 C 10/22/17 05:30 Heart Rate 67 10/22/17 05:30 Respiratory Rate 18 10/22/17 05:30 Blood Pressure 172/92 H 10/22/17 05:30 O2 Sat (%) 98 10/22/17 05:30 O2 Delivery Mode Room Air Allergies/Adverse Reactions: adhesive [Adhesive] Allergy (Verified 10/22/17 05:56) Home Medications: Medication Instructions Recorded Atorvastatin Calcium [Lipitor 20 20 mg PO HS 11/21/15 mg (*)] Calcitriol [Calcitriol (*)] 0.25 mcg PO MOFR 11/21/15 Levothyroxine [Synthroid 25 mcg 25 mcg PO DAILY06 11/21/15 (*)] Aspirin [Aspirin 81mg (*)] 81 mg PO HS 01/15/17 Herbals/Supplements -Info Only 1 ea PO DAILY 03/24/17 Multivitamins [Multivitamin (*)] 1 each PO DAILY@12 03/24/17 Meclizine HCl 25 mg PO Q6H PRN #20 tablet 10/22/17 Medical Decision Making - Diagnostics Imaging Results: CT brain without contrast demonstrates new area of encephalomalacia in the left parietal white matter, discussed with Dr. Connors of Radiology. (Caridad Ledesma) Differential Diagnosis: 81-year-old male with hypertension, chronic kidney disease, presents with dizziness when he woke this morning. This sounds to be vertigo in nature. It is associated with nausea. Differential diagnosis includes central vertigo such as ischemic stroke or bleed versus peripheral vertigo such as BPPV or labyrinthitis. In the emergency department, the patient was treated with IV fluids, meclizine, Zofran. He began to feel better. Labs were checked and did reveal elevated BUN and creatinine on par with prior values as related to his underlying chronic renal insufficiency. CBC is normal. He had a CT scan of his head without contrast that demonstrated new encephalomalacia as compared to prior old CT scan though no acute findings. At 7:00 a.m. I reassessed him. He is feeling better and is very motivated to go home. He has not been out of bed yet. I have signed the case out to the oncoming provider Dr. Tariq. After patient received his fluids, we will attempt ambulation, if he is able to walk, he will be able to go home with outpatient medication and follow-up. Otherwise, he will likely be admitted to the hospitalist service for ongoing monitoring. (Caridad Ledesma) Other Provider: I assumed care of the patient at 0715 pending recheck of his peripheral vertigo. The patient attempted to ambulate at 8:50 a.m. In the morning and was unsuccessful secondary to ongoing vertigo. Given his age in gait instability I do feel he should be admitted to the hospital for observation. Consultation was made with the hospitalist service in the patient will be admitted by Dr. Woodward. (Ben Tariq) - Data Points Laboratory Results: Laboratory Results 10/22/17 05:40 10/22/17 05:40 10/22/17 10/22/17 05:40 05:40 WBC 6.06 10^3/uL 10^3/uL (3.80-9.50) RBC 3.91 10^6/uL L 10^6/uL (4.40-6.38) Hgb 12.2 g/dL L g/dL (13.7-17.5) Hct 35.5 % L % (40.0-51.0) MCV 90.8 fL fL (81.5-99.8) MCH 31.2 pg pg (27.9-34.1) MCHC 34.4 g/dL g/dL (32.4-36.7) RDW 12.6 % % (11.5-15.2) Plt Count 137 10^3/uL L 10^3/uL (150-400) MPV 11.5 fL fL (8.7-11.7) Neut % (Auto) 50.2 % % (39.3-74.2) Lymph % (Auto) 29.4 % % (15.0-45.0) [place] % (Auto) 14.2 % H % (4.5-13.0) Eos % (Auto) 5.3 % % (0.6-7.6) Baso % (Auto) 0.7 % % (0.3-1.7) Nucleat RBC Rel Count 0.0 % % (0.0-0.2) Absolute Neuts (auto) 3.05 10^3/uL 10^3/uL (1.70-6.50) Absolute Lymphs (auto) 1.78 10^3/uL 10^3/uL (1.00-3.00) Absolute Monos (auto) 0.86 10^3/uL H 10^3/uL (0.30-0.80) Absolute Eos (auto) 0.32 10^3/uL 10^3/uL (0.03-0.40) Absolute Basos (auto) 0.04 10^3/uL 10^3/uL (0.02-0.10) Absolute Nucleated RBC 0.00 10^3/uL 10^3/uL (0-0.01) Immature Gran % 0.2 % % (0.0-1.1) Immature Gran # 0.01 10^3/uL 10^3/uL (0.00-0.10) Sodium 141 mEq/L mEq/L (135-145) Potassium 4.7 mEq/L mEq/L (3.5-5.2) Chloride 110 mEq/L mEq/L (97-110) Carbon Dioxide 16 mEq/l L mEq/l (22-31) Anion Gap 15 mEq/L mEq/L (8-16) BUN 44 mg/dL H mg/dL (7-23) Creatinine 3.2 mg/dL H mg/dL (0.7-1.3) Estimated GFR 19 Glucose 104 mg/dL H mg/dL (70-100) Calcium 9.9 mg/dL mg/dL (8.5-10.4) Medications Given: Discontinued Medications Sodium Chloride (Ns) 1,000 mls @ 0 mls/hr IV EDNOW ONE; Wide Open PRN Reason: Protocol Stop: 10/22/17 05:30 Last Admin: 10/22/17 06:17 Dose: 1,000 mls Meclizine HCl (Meclizine Hcl) 25 mg PO EDNOW ONE Stop: 10/22/17 06:11 Last Admin: 10/22/17 06:18 Dose: 25 mg Ondansetron HCl (Zofran) 4 mg IVP EDNOW ONE Stop: 10/22/17 05:30 Last Admin: 10/22/17 06:18 Dose: 4 mg Departure - Departure Disposition: [facility] Acute Clinical Impression: Vertigo, Nausea Chronic renal failure Qualifiers: Chronic kidney disease stage: unspecified stage Qualified Code(s): N18.9 - Chronic kidney disease, unspecified Condition: Good Instructions: Vertigo (ED) Additional Instructions: Please make sure to drink plenty of fluids. You should take the medication as prescribed. Follow up with the ENT doctor in the next 1-2 days. Referrals: James Young DO [Primary Care Provider] - As per Instructions Eric Juarez MD [Medical Doctor] - As per Instructions Prescriptions: Meclizine HCl 25 mg PO Q6H PRN #20 tablet PRN Reason: Dizziness
[2017-10-22] MEDS ORDERED: LORazepam 2 MG/ML INJ IVP ONE (08:55)
--- NOTE | 2017-10-22 09:17 | ASMTLACE ---
ZACARIAS Acuity / Level of Answers: Yes Care: Did the patient have an inpatient admission? Comorbidities - select Answers: Moderate or severe liver all that apply or renal disease # of Emergency department Answers: 1-2 visits in the last 6 months Score: 8 Date Signed: 10/22/2017 09:16 AM Electronically Signed By:Romy Pascual RN
[2017-10-22] MEDS ORDERED: ONDANSETRON DISINTEGRATING 4 MG TAB PO PRN (09:44)
[2017-10-22] MEDS ORDERED: ACETAMINOPHEN 325 MG TAB PO PRN (09:44)
[2017-10-22] MEDS ORDERED: MECLIZINE HCL 25 MG TAB PO PRN (09:44)
[2017-10-22] MEDS ORDERED: ONDANSETRON 4 MG/2 ML VIAL IVP PRN (09:44)
--- NOTE | 2017-10-22 11:45 | CPEKG ---
Heart Rate: 69 RR Interval: 870 P-R Interval: 127 QRSD Interval: 160 QT Interval: 472 QTC Interval: 506 P [place]: -37 QRS [place]: -56 T Wave [place]: 124 EKG Severity - ABNORMAL ECG - EKG Impression: ATRIAL-VENTRICULAR DUAL-PACED RHYTHM Electronically Signed By: Martinez Rosas 22-Oct-2017 17:31:52
[2017-10-22] MEDS: LEVOTHYROXINE 25 MCG TAB PO SCH (12:36)
--- NOTE | 2017-10-22 13:39 | GHP ---
[f rep st] HISTORY AND PHYSICAL DATE OF ADMISSION: 10/22/2017 CHIEF COMPLAINT: Dizziness. HISTORY OF PRESENT ILLNESS: The patient is a 81-year-old male with a history of coronary artery dise ase, ischemic cardiomyopathy, hypertension, and hyperlipidemia, who presents to the emergency departm ent after awakening this morning with vertigo symptoms. He was in his usual state of health last nig ht and did all his usual exercises with no symptoms. However, he went to bed and awoke this morning with a feeling as if he was floating. He states it seemed that he was tipping back and forth. This seemed to be provoked by a movement of his head. He has no prior history of positional vertigo. He also endorsed blurred vision during this event. He denies any speech difficulty or focal weakness. He has had no headaches. No fevers. He denies any chest pain, shortness of breath, weight gain, or peripheral edema. In the emergency department, he was given meclizine, Zofran, IV Ativan and a liter of normal saline. His symptoms persisted. Due to gait instability and ongoing symptoms, he is admitted to the [facility] for further evaluation. PAST MEDICAL HISTORY: 1. Ischemic cardiomyopathy with an ejection fraction of 40% by his recent Lexiscan in August 2017. 2. Chronic systolic heart failure. 3. Coronary artery disease, status post stent. He had a recent Lexiscan, which showed a large fixed but partially reversible inferoapical defect consistent with his known roula-infarct ischemia. There was no transient ischemic dilation. 4. Hypertension. 5. Hyperlipidemia. 6. Stage 4 chronic kidney disease, followed by Dr. Rose. 7. Presence of a pacemaker with revision in 2012. This was initially placed due to his ischemic car diomyopathy. His EF was 25% to 30% in February 2017. 8. Hyperparathyroidism. 9. Hypothyroidism. 10. History of syncope. 11. History of pancreatitis. 12. History of small bowel obstruction. PAST SURGICAL HISTORY: 1. Exploratory laparoscopy for lysis of adhesions. 2. Cholecystectomy. 3. 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 4. Pacemaker. MEDICATIONS: Please see [employer] for completed outpatient medication list. ALLERGIES: Adhesive tape. SOCIAL HISTORY: The patient is . He is a former smoker. He reports daily wine use. He is o therwise quite active, does yoga, and goes to the gym. FAMILY HISTORY: His mom had diabetes. His brother and sister both had end-stage renal disease requi ring dialysis. REVIEW OF SYSTEMS: A 10-point review of systems performed and negative as per HPI. OBJECTIVE: VITAL SIGNS: Temperature is 36.6, blood pressure 107/61, heart rate 70, respiratory rate 16. He is 94% on room air. GENERAL: The patient is awake, alert, oriented, and in no acute distre ss. HEENT: Head is atraumatic, normocephalic. Pupils equal, round, and reactive to light. He has unilateral horizontal nystagmus to the right. NECK: Supple. There is no JVD. HEART: Regular rate and rhythm. LUNGS: Clear to auscultation bilaterally. ABDOMEN: Soft, nondistended, nontender wit h normoactive bowel sounds. EXTREMITIES: Without cyanosis, clubbing, or edema. NEUROLOGIC: No pro nator drift. No facial asymmetry. He moves all 4 extremities equally. Cranial nerves 2 through 12 are grossly intact. DIAGNOSTICS: EKG shows an AV paced rhythm which is unchanged from prior. Laboratory data: CBC: Normal white count, hemoglobin 12.2, platelets 137. Basic metabolic panel: CO2 of 16, BUN 44, creatinine 3.2, glucose 104. Troponin 0.059. Imaging studies: Head CT performed in the emergency department is negative for acute ischemia and he morrhage. However, a left parietal white matter infarct is noted, which is new from February 2017. ASSESSMENT AND PLAN: The patient is a 81-year-old male with history of coronary artery disease and s tage 4 chronic kidney disease with an ischemic cardiomyopathy and reduced ejection fraction, who pres ents to the emergency department with vertigo symptoms. 1. Vertigo: Clinically, this is consistent with positional vertigo. However, with his vision latham es and evidence of a stroke, which has occurred since February 2017, this raises concern for a possibilit y of recurrent stroke. He was hypertensive on arrival, though is currently normotensive without any medications. He is already taking aspirin and statin. I discussed the case with Neurology, and they will formally consult. He may warrant an outpatient cardiac event monitor to ensure he is not havin g paroxysms of atrial fibrillation. In the meantime, will manage his symptoms with meclizine, Zofran , and p.r.n. Ativan. PT/OT consults are requested. He did have carotid artery Doppler evaluation in February 2017, which showed no evidence of flow-limiting stenosis. 2. Mild troponin elevation: His troponin is 0.059, which is not chronic, as he had negative troponi ns in February 2017. His EKG is unchanged. He is chest pain-free. He does not appear to be having an a cute coronary syndrome. However, I did consider the possibility that his presenting symptoms could b e an anginal equivalent. I reviewed cardiology notes from the [facility]. He was recently seen by Dr. Oren Pak and had a stress test which was abnormal, though reportedly not significant ly different than it was before. Further angiograms have been deferred given his stage 4 kidney dise ase. I will trend his troponin and, if this is on the rise or he develops any more concerning sympto ms, I will request Cardiology consultation. Continue medical management for now with aspirin and sta tin. He has recently discontinued his beta blayne and has refused to take this per his cardiology n otes. 3. Stage 4 kidney disease: His baseline creatinine is 2.7. He presents with a creatinine of 3.2. He has had some fluctuations in his creatinine up to 3.5 last year. He does not appear volume deplet ed. Will continue to trend this and notify renal service of his admission should he have a prolonged hospitalization. 4. Metabolic acidosis: Likely secondary to his renal disease. He is not taking sodium bicarb as th ere was concern that this had hastened hypertension and heart failure symptoms in the past. Will con tinue to monitor. 5. Chronic systolic heart failure: He does not take diuretics. He appears compensated without evid ence of volume overload. Will continue his current outpatient management. 6. Hypertension: He has not done well with antihypertensives in the past. Low-dose enalapril cause d hypotension, and as above, he has even refused beta blayne therapy. He is currently normotensive. Will continue to monitor. 7. Deep vein thrombosis prophylaxis: Heparin. CODE STATUS: Patient is full code. DISPOSITION: Patient is admitted to observation status. If his symptoms resolve, he may be a candid ate for discharge tomorrow. However, if his troponin is on the rise, will consider changing him to i npatient for ongoing cardiac evaluation. /[id number]/MODL
[2017-10-22] MEDS ORDERED: LORazepam 2 MG/ML INJ IVP PRN (16:00)
--- NOTE | 2017-10-22 18:51 | GCON ---
[f rep st] CONSULTATION NEUROLOGY CONSULTATION DATE OF CONSULTATION: 10/22/2017 REFERRING PHYSICIAN: Lise Woodward MD CHIEF COMPLAINT: Vertigo. HISTORY OF PRESENT ILLNESS: The patient is a very pleasant 81-year-old gentleman with significant previous cardiac disease including a pacemaker placement. Please see outpatient, inpatient cardiology notes for details. The patient 2 weeks ago had a very brief episode of "top over bottom" type vertigo, which lasted less than an hour and spontaneously resolved. This bout of vertigo was aggravated by head movements. There was no other focal finding such as weakness, numbness, dysarthria, with that episode. Then this morning at 4 a.m., he had the identical type of oriented vertigo along with a "pop" sensation in his right ear, which has slowly resolved over the day. There were no other associated focal symptoms. Head CT in the emergency department showed nothing acute. There was mention of a new left parietal white matter hypodensity since February of 2017. I, myself, could not appreciate any changes in that area. He certainly has significant white matter disease bilaterally. PAST MEDICAL HISTORY, SURGICAL HISTORY, HOME MEDICATIONS, SOCIAL HISTORY: Please see Dr. Woodward's H and P. PHYSICAL EXAM: VITAL SIGNS: Blood pressure 107/61, temperature 36.6, respirations 16. GENERAL: In no acute distress. He is very pleasant. HIGHER MENTAL FUNCTION: He is awake, alert, lucid, no aphasia. CRANIAL NERVES: Normal 2 through 7, and 11 and 12. MOTOR EXAM: Normal strength and tone throughout. SENSORY EXAM: Normal to light touch throughout. No extinction. COORDINATION: Normal nofvyk-lwon-ccdnrv and rkms-jx-etho bilaterally. With the Kimberly-Hallpike maneuver, there was some mild or minimal reproduction of symptoms, and nystagmus with head turned to the left. IMPRESSION AND PLAN: 1. Vertigo, resolving. 2. Cardiac disease. Overall, the patient's clinical history is more suggestive of peripheral vertigo rather than central vertigo. He likely has benign positional paroxysmal vertigo based on his identical set of symptoms, albeit briefer, 2 weeks ago with recurrence now -- and without other focal neurologic symptoms. I counseled him at length. The changes in head CT are hard to appreciate when viewing the images myself. Certainly, he may have had a silent infarct in his left-sided white matter in the last few months. Because of that possibility, I am recommending switching him from baby aspirin daily to Plavix 75 mg daily. We discussed potential risks, benefits, alternatives of this medication. I have also recommended touching base with Cardiology to review any rhythm data from his pacemaker or performing external rhythm monitoring to screen for paroxysmal atrial fibrillation and to discuss with the patient whether he needs anticoagulation based purely on his low ejection fraction. This was all discussed at great length with the patient and the family along with Hospital Medicine. He will likely discharge home in the near future. He cannot get an MRI due to pacemaker. No further recommendations. We will sign off and follow up as needed. Please do not hesitate to call if there are any questions or changes in neurologic status with this very pleasant patient. Seventy total minutes on floor time today reviewing previous and current hospital records including comparison of imaging, direct counseling with the patient, and coordination of care. /[id number]/MODL MTDD
[2017-10-22] MEDS ORDERED: HEPARIN 5,000 UNIT/0.5 ML SYR SC SCH (21:00)
[2017-10-22] MEDS ORDERED: FAMOTIDINE 20 MG TAB PO SCH (21:00)
[2017-10-22] MEDS ORDERED: ATORVASTATIN CALCIUM 20 MG TAB PO SCH (21:00)
[2017-10-22] MEDS ORDERED: ASPIRIN 81 MG CHEWABLE TAB PO SCH (21:00)
[2017-10-23] MEDS: LEVOTHYROXINE 25 MCG TAB PO SCH (06:47)
[2017-10-23] MEDS ORDERED: CLOPIDOGREL BISULFATE 75 MG TAB PO SCH (09:00)
[2017-10-23] MEDS ORDERED: CALCITRIOL 0.25 MCG CAP PO SCH (09:46)
--- NOTE | 2017-10-23 10:39 | ASMTCASEMG ---
Living Arrangements What is your living Answers: With Spouse arrangement? Who do you live with? Type Of Residence What kind of residence do Answers: House you live in? Discharge Plan Comments Coordination Status Comments Notes: Pt is a 81 y/o man admitted for peripheral vertigo. OT and a neurology consult has been ordered. Awaiting recommendations. Needs are TBD at this time. CM to follow. Plan: TBD Date Signed: 10/23/2017 10:39 AM Electronically Signed By:PARKER Gutierrez
[2017-10-23 11:32] VITALS: TEMP 97.4
--- NOTE | 2017-10-23 14:03 | HOSPPROG ---
Hospitalist Progress Note Assessment/Plan: Vertigo - c/w BPPV. Symptoms resolved this am. Appreciate PT eval, pt to continue home BPPV exercise. Unlikely this was sales solutions representative of stroke, but given new CT findings of possible interval CVA since 2017, neurology consulted and pt changed from ASA to Plavix. CAD wth prior stents - mild trop elevation (0.059 -> 0.04), suspect secondary to rising Cr. He has denied anginal symptoms. Family texted Dr. Pak, who saw pt and has requested GI workup. Angiogram has previously been deferred due to CKD. Discussed case with Dr. Pak, GI to see and consider EGD to r/o esophageal etiology of CP (though he has been CP free here by his report to me) . Cont Plavix, statin. Pt has refused BB. Stage IV CKD - Baseline has been 2.7, though now up to 3.3. Lytes ok. Discussed with Dr. Rose. Proceed with plan for outpt fistula placement in anticipation of eventually needing dialysis. DVT PPLX - TOMAS Full code Dispo - change to inpt to pursue GI evaluation. Subjective: Pt feels fine. His dizziness has completely resolved. He denies any CP, pressure or SOB. No N/V. He feels well and wishes to go home. Objective: Vital Signs Temp Pulse Resp BP Pulse Ox 36.3 C 70 18 137/82 H 95 10/23/17 11:29 10/23/17 11:29 10/23/17 11:29 10/23/17 11:29 10/23/17 11:29 Laboratory Results 10/23/17 04:06 10/22/17 10/23/17 10/24/17 05:59 05:59 05:59 Intake Total 850 Output Total 825 Balance 25 - Physical Exam Constitutional: no apparent distress Eyes: PERRL Ears, Nose, Mouth, Throat: moist mucous membranes Cardiovascular: regular rate and rhythym Respiratory: no respiratory distress, clear to auscultation Gastrointestinal: normoactive bowel sounds, soft, non-tender abdomen Skin: warm Musculoskeletal: full muscle strength Neurologic: AAOx3, CN II-XII Intact Psychiatric: interacting appropriately ICD10 Worksheet Patient Problems: Problems Problem Status Onset Chronic renal failure Acute Nausea Acute Vertigo Acute Anemia Active Chronic kidney disease stage 3 Active Pneumonia Active Renal failure syndrome Active Angina pectoris Acute Elevated brain natriuretic peptide (BNP) level Acute Stroke Acute
[2017-10-23 15:28] VITALS: BP 151/94; PULSE 72; RESP 14; O2SAT 93
--- NOTE | 2017-10-23 20:51 | GCON ---
[f rep st] CONSULTATION DATE OF CONSULTATION: 10/23/2017 REFERRING PHYSICIAN: Jacob Pak MD HISTORY OF PRESENT ILLNESS: Dear Dr. Pak, thank you very kindly for asking me to evaluate this rebecca noguera in consultation for a chief complaint of dysphagia. He has also been having some intermittent chest pain. He was admitted yesterday for vertigo. This has resolved. He has known ischemic cardio myopathy and congestive heart failure, and has been having episodes of chest pain that are more angin a related, but the current symptoms that he is having feel different. His angina symptoms are descri bed more as a squeezing chest discomfort, and it resolved generally by nitroglycerin. Over the last month he has been suffering with more of a substernal burning discomfort and intermittent solid food dysphagia. He has had a known esophageal stricture, which has been treated by esophageal dilation in the past. His dysphagia is not progressive and seems to be stable. He does not feel that he has an ything currently stuck in his esophagus. He had breakfast this morning without difficulty. He had p reviously been on proton pump inhibitor therapy for management of his heartburn and dysphagia with no symptoms, but he has developed stage 4 chronic kidney disease, and these drugs were removed from his regimen due to the concern for association of proton pump inhibitors with renal insufficiency. As nitin sharma withdrew his proton pump inhibitor from his regimen, his heartburn and dysphagia have now become mo re problematic. He was seen in the clinic about 4 weeks ago, where he was placed on Zantac twice a d ay, but this did not seem to help his symptoms, and in fact caused dyspepsia and bloating, which prom pted his discontinuation of the medication. I am asked to assist with further evaluation and managem ent. PAST MEDICAL HISTORY: Significant for ischemic cardiomyopathy, chronic systolic congestive heart emelina lure, known coronary artery disease with stent placement, hypertension, hyperlipidemia, stage 4 chron ic kidney disease, pacemaker, hyperparathyroidism, hypothyroidism, idiopathic pancreatitis, previous small bowel obstruction, chronic heartburn, esophageal stricture with known dysphagia treated by dila tion. PAST SURGICAL HISTORY: Cholecystectomy, exploratory laparoscopy with lysis of adhesions for treatmen t of small-bowel obstruction, percutaneous coronary angioplasty with stent placement, pacemaker place ment, endoscopy with esophageal dilation. MEDICATIONS ON ADMISSION: Atorvastatin, vitamin D with calcium, levothyroxine, aspirin, herbal, mult ivitamins, meclizine, and recently Zantac. ALLERGIES: Adhesive tape. SOCIAL HISTORY: The patient is . His is at the bedside with him. 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 Drinks a glass of wine daily. He is, otherwise, quite active and exerc ises, and goes to the gym daily. FAMILY HISTORY: Significant for diabetes and end-stage renal disease in his brother and sister, both who have been on dialysis. REVIEW OF SYSTEMS: CONSTITUTIONAL: Denies fever, chills, or night sweats. No anorexia or weight lo ss. HEENT: Denies any difficulty with swallowing. He feels like he is able to chew food normally a nd transmit it into his neck and throat without difficulty. He is able to transition food into his e sophagus without problems. Liquids are without any disturbances in his swallowing. Denies headache. He has been dizzy, which was attributed to positional vertigo and has resolved. Denies altered tas te. PULMONARY: Denies cough or shortness of breath. He is able to exercise without difficulty. No change in his ability to exercise or exercise tolerance. CARDIOVASCULAR: He does have 2 different types of chest pain, one that sounds more like reflux and is causing a burning substernal discomfort. The other is more of a squeezing pressure sensation, which he says response to nitroglycerin. He h as not had either of these symptoms today. GI: Denies constipation or diarrhea. He does have heart burn and dysphagia as described in the HPI. Denies vomiting. Denies weight loss. Denies hematochez ia or melena. RHEUMATOLOGIC: No joint pain or swelling. DERMATOLOGIC: No rash, jaundice, or pruri tus. NEUROLOGIC: He has been dizzy, but denies any falls or focal weakness. GENITOURINARY: Denies flank pain, or dysuria. He says he only makes a very little bit of urine per his description. SIOBHAN TOLOGIC: Denies bruising or epistaxis. PHYSICAL EXAM: VITAL SIGNS: Blood pressure is 137/82, his heart rate is 70, respirations are 18, ox ygenation is 95% on room air, temperature is 36.3. GENERAL: Elderly male in no acute distress. CHINO NT: Normocephalic, atraumatic. Oropharynx is clear. No oral thrush. Mucous membranes are moist. Trachea is midline. No carotid bruit. No adenopathy. No thyromegaly. PULMONARY: Coarse breath so unds, but without rales. Good air exchange. CARDIOVASCULAR: Regular rate and rhythm with ectopy. Systolic murmur 2/6 at the left sternal border. S4 gallop is present. GI: Abdomen is soft and nond istended. No organomegaly. Normal bowel sounds. No palpable mass or lesion. No organomegaly. No ascites. No abdominal bruit. MUSCULOSKELETAL: Normal gait and station without clubbing, cyanosis, joint deformity or palmar erythema. NEUROLOGIC: Alert to person, place, and time. He is able to pr ovide his own history. Speech is normal. Normal mood and affect. Normal gait without ataxia. No a sterixis. Motor exam nonfocal. DERMATOLOGIC: Skin is without jaundice or rash. LABORATORY DATA: Database includes the following: White blood count 6.0, hematocrit 35.5, platelets 137, sodium 143, potassium 4.6, chloride 113, bicarbonate 17, BUN 43, creatinine 3.3, glucose 89. T roponin is mildly elevated at 0.059 and 0.041, albumin is 3.3. IMPRESSION: 1. Dysphagia. 2. Heartburn. 3. Chest pain. 4. Ischemic cardiomyopathy. 5. Chronic kidney disease. RECOMMENDATIONS: 1. Discontinue Zantac, as he has been intolerant to it. 2. While proton pump inhibitor therapy would likely be resolving of his symptoms, and interestingly his gastrointestinal symptoms clearly exacerbated with withdrawal of the proton pump inhibitor medica tion, these seem to be contraindicated for him due to his chronic kidney disease. 3. If, however he is going to have a dialysis catheter placed and he is going to be on dialysis, the n these drugs can be probably re-continued. I will have to discuss this with his life scientist. Thes e will be most likely pivotal in resolving his reflux and dysphagia symptoms. 4. In the interim, however, I would start Pepcid 20 mg twice daily, and in addition, begin Carafate suspension 1 g with meals and before bed to help treat reflux. 5. Upper GI series will be arranged to evaluate his dysphagia to see whether or not endoscopic inter vention and dilation would be prudent. 6. If he fails to respond to medications and/or his upper GI series shows a significant stricture, t hen endoscopy with dilation would be appropriate. 7. For now, the patient would like to go home. It is his birthday tomorrow, and he has a big dinner planned with his family to celebrate. I do not believe these gastrointestinal issues are urgent, an d I will lay out the plan of medication management with Pepcid and Carafate, arrange for the upper GI series timely in the next week or two, and then an office followup to discuss these findings, respon se to medications, and whether endoscopy planning as needed. Thank you for allowing me to be involved in his care. /[id number]/MODL
--- NOTE | 2017-10-24 03:32 | GDS ---
[f rep st] DISCHARGE SUMMARY DISCHARGE DIAGNOSES: 1. Benign paroxysmal positional vertigo. 2. Coronary artery disease with prior stents. 3. Mild troponin elevations suspected secondary to worsening renal clearance. 4. Stage 4 chronic kidney disease with a baseline creatinine of 2.7, now up to 3.3. 5. Suspected esophagitis. CONSULTANTS: 1. Dr. Ifeanyi Albrecht, Neurology. 2. Dr. Oren Pak, Cardiology. 3. Dr. Mahesh Martinez, Gastroenterology. HISTORY: For details, please see dictated history and physical dated October 22, 2017. In brief, [facility] patient is a 81-year-old male with history of coronary artery disease, ischemic cardiomyopathy, an d stage 4 kidney disease, who presents to the emergency department with vertigo. Clinically, this wa s consistent with benign paroxysmal positional vertigo. However, CT scan in the emergency department showed possible interval strokes in 2017. He was admitted to the hospital for further management. HOSPITAL COURSE: The patient admitted to the PCU. He had a very mild troponin elevation of 0.059. This trended down to 0.04. He had no chest pain or shortness of breath throughout his hospital cours e. His EKG is unchanged. He did recently have a Lexiscan, which was reportedly not significantly di fferent than his prior, although he does have evidence of roula-infarct ischemia. Cardiology had been deferring angiogram due to his worsening renal function. In addition, he has plans to follow up sofiya Rose in the near future for dialysis catheter placement in anticipation of likely needing dialysis in the near future. With respect to his vertigo, he had a PT/OT consult and underwent Apley maneuver. He was given instr uctions for ongoing exercises for his vertigo. On the day of discharge, symptoms have completely res olved. Apparently, the family texted Dr. Oren Alonzo, his primary doll wig maker. He visited with them in [facility] and requested a GI consult. Maehsh Martinez then saw the patient and felt that he could have ongoing GI evaluation in the outpatient setting. He will be discharged on sucralfate and Pepcid. I n addition, he will need close followup with Nephrology and Cardiology. Ideally, he will get his joe lysis catheter placed prior to proceeding with angiogram. He had no indication for urgent angiogram during this hospitalization, and again, he remained chest pain-free. DISPOSITION: Patient is discharged home in stable condition. FOLLOWUP: 1. Dr. Keron Rose, Nephrology. 2. Dr. Oren Pak, Cardiology. 3. Dr. Steve Puri, Gastroenterology. 4. Dr. James Young, Primary Care. DISCHARGE MEDICATIONS: Please see [employer] for complete updated outpatient medication list. New medications on discharge include: 1. Meclizine 25 mg p.o. q.6 hours p.r.n., #20, no refills. 2. Plavix 75 mg p.o. daily, #30, no refills. 3. Pepcid 20 mg p.o. b.i.d., #60, no refills. 4. Sucralfate 1 g p.o. q.i.d. Discontinued medications: 1. Aspirin is discontinued in favor of Plavix given the possibility of interval stroke. 2. Ranitidine. He will continue all other outpatient medications as previously prescribed including levothyroxine 25 mcg p.o. daily; calcitriol 0.25 mcg p.o. Thursday, Thursday; Lipitor 20 mg p.o. q.h.s. /[id number]/MOD
== END 2017-10-23 16:26 | disposition home or self-care (01) ==
LOC: EDUNIT# → F3N 10:17 → F2W 14:05
PROVIDERS: ADMIT Hospitalist; ATTEND Hospitalist
DX: H81.10 Benign paroxysmal vertigo, unspecified ear (principal); I25.10 Atherosclerotic heart disease of native coronary artery without angina pectoris; N18.4 Chronic kidney disease, stage 4 (severe); E03.9 Hypothyroidism, unspecified; I12.9 Hypertensive chronic kidney disease with stage 1 through stage 4 chronic kidney disease, or unspecified chronic kidney disease; I50.22 Chronic systolic (congestive) heart failure; E21.3 Hyperparathyroidism, unspecified; R13.10 Dysphagia, unspecified; R07.89 Other chest pain; R12 Heartburn; Z95.5 Presence of coronary angioplasty implant and graft; Z95.0 Presence of cardiac pacemaker
CPT/HCPCS: 70450; 93005; 96361; 96374; 96375; 97161; 97165; 99285; G8978; G8979; G8980; G8987; G8988; G8989; J1644; J2060; J2405

== ENCOUNTER → 2017-11-02 | Outpatient (CLI) | payer OTHER, MEDICARE | LOC: FIMAGING 09:01 | PROVIDERS: ATTEND Internal Medicine Gastroenterology | DX: K22.9 Disease of esophagus, unspecified (principal) ==

== ENCOUNTER 2017-12-08 07:54 | Day surgery (SDC) | payer OTHER, MEDICARE ==
--- NOTE | 2017-12-08 07:52 | PDHPUP ---
History & Physical Update H&P update statement: This history and physical update is based on an assessment of the patient which was completed after admission or registration (within 24 hours), but prior to the surgery/procedure. H&P update: H&P reviewed & patient examined, no change in patient's condition since H&P completed
[2017-12-08] MEDS ORDERED: ceFAZolin 2 GM/SWFI 2 GM/20 ML SYR IVP ONE (08:16)
[2017-12-08] MEDS ORDERED: LIDOCAINE 1% 2 ML INJ ID ONE (08:20)
[2017-12-08] MEDS ORDERED: LR 1,000 ML IV SCH (08:30)
[2017-12-08] MEDS ORDERED: NS 500 ML IV SCH (08:30)
[2017-12-08] MEDS ORDERED: BUPIVACAINE 0.5% 30 ML SDV ONE (09:08)
[2017-12-08] MEDS ORDERED: THROMBIN (BOVINE) 5,000 UNIT VIAL TP ONE (09:08)
[2017-12-08] MEDS ORDERED: POVIDONE-IODINE 30 GM OINTTUBE TP ONE (09:08)
[2017-12-08 09:16] LABS: PLATELET COUNT 176 10^3/uL (150-400)
[2017-12-08] MEDS ORDERED: PROPOFOL 200 MG/20 ML VIAL ONE (09:23)
[2017-12-08] MEDS ORDERED: fentaNYL 100 MCG/2 ML INJ ONE ×2 (09:23→11:09)
[2017-12-08] MEDS ORDERED: LIDOCAINE 2% 5 ML SDV ONE ×2 (09:28→09:33)
[2017-12-08] MEDS ORDERED: ROCURONIUM 50 MG/5 ML VIAL ONE (09:34)
[2017-12-08] MEDS ORDERED: ONDANSETRON 4 MG/2 ML VIAL ONE (09:34)
[2017-12-08] MEDS ORDERED: SUGAMMADEX SODIUM 200 MG/2 ML VIAL IVP ONE (09:34)
[2017-12-08] MEDS ORDERED: DEXAMETHASONE 4 MG/ML VIAL ONE (09:34)
--- NOTE | 2017-12-08 09:50 | PDANEPAE ---
ANE History of Present Illness lap peritoneal dialysis catheter placement ANE Past Medical History - Cardiovascular History Hx Hypertension: No Hx Arrhythmias: No Hx Chest Pain: No Hx Coronary Artery / Peripheral Vascular Disease: Yes Hx CHF / Valvular Disease: No Hx Palpitations: No Cardiovascular History Comment: pacer placed for sinus pause in 's- with longer-left battery. on Plavix - Pulmonary History Hx COPD: No Hx Asthma/Reactive Airway Disease: No Hx Recent Upper Respiratory Infection: No Hx Oxygen in Use at Home: No Hx Sleep Apnea: No Sleep Apnea Screening Result - Last Documented: Negative Pulmonary History Comment: recent sleep study test- pt states "no apnea" - Neurologic History Hx Cerebrovascular Accident: No Hx Seizures: No Hx Dementia: No Neurologic History Comment: vertigo , Denies Stroke-no deficits. - Endocrine History Hx Diabetes: No Obesity: no Endocrine History Comment: hypothyroid - Renal History Hx Renal Disorders: Yes Renal History Comment: chronic kidney disease Stage 4 - Liver History Hx Hepatic Disorders: No - Neurological & Psychiatric Hx Hx Neurological and Psychiatric Disorders: No - Cancer History Hx Cancer: No - Congenital Disorder History Hx Congenital Disorders: No - GI History Hx Gastrointestinal Disorders: Yes Gastrointestinal History Comment: on Pantoprazole - Other Health History Other Health History: n/a - Chronic Pain History Chronic Pain: No - Surgical History Prior Surgeries: genaro. Explor lap-lysis of adhesions. bilat cataract extraction w/IOL. pacmaker insertion ANE Review of Systems Review of systems is: negative Review of Systems: - Exercise capacity METS (RN): 4 METS - Pacemaker Pacemaker Quality Control Tech Raw Materials: Biotronik Pacemaker Model: Evia-dual chamber Pacemaker Mode: DDD Date Pacemaker Last Checked: office check 07-13-17remote check ANE Patient History - Allergies Allergies/Adverse Reactions: adhesive [Adhesive] Allergy (Verified 12/07/17 17:36) - Home Medications Home medications: home medication list seen and reviewed Home Medications: Atorvastatin Calcium [Lipitor 20 mg (*)] 20 mg PO HS 11/21/15 [Last Taken 1 Day Ago ~12/07/17] Calcitriol [Calcitriol (*)] 0.25 mcg PO MOFR 11/21/15 [Last Taken 1 Day Ago ~05/18] Levothyroxine [Synthroid 25 mcg (*)] 25 mcg PO DAILY06 11/21/15 [Last Taken 1 Day Ago ~12/07/17] Herbals/Supplements -Info Only 1 ea PO DAILY 03/24/17 [Last Taken 1 Day Ago ~05/18] Multivitamins [Multivitamin (*)] 1 each PO DAILY@12 03/24/17 [Last Taken 1 Day Ago ~12/07/17] Pantoprazole Sodium 12/07/17 [Last Taken 1 Day Ago ~12/07/17] - NPO status NPO Since - Liquids (Date): 12/07/17 NPO Since - Liquids (Time): 23:00 NPO Since - Solids (Date): 12/07/17 NPO Since - Solids (Time): 18:00 - Smoking Hx Smoking Status: Former smoker ANE Labs/Vital Signs - Labs Result Diagrams: 12/08/17 08:58 12/08/17 08:58 - Vital Signs Blood Pressure: 139/77 Heart Rate: 69 Respiratory Rate: 18 O2 Sat (%): 94 Height: 180.98 cm Weight: 72.575 kg ANE Physical Exam - Airway Neck exam: FROM Mallampati Score: Class 1 Mouth exam: normal dental/mouth exam - Pulmonary Pulmonary: no respiratory distress - Cardiovascular Cardiovascular: regular rate and rhythym - ASA Status ASA Status: III ANE Anesthesia Plan Anesthesia Plan: general endotracheal anesthesia Urgent/Emergent Case: Hugo piña completed preop but documented later for safe timely pt care
[2017-12-08] MEDS ORDERED: HYDROCODONE/APAP 5/325 TAB PO PRN (09:57)
[2017-12-08] MEDS ORDERED: ONDANSETRON 4 MG/2 ML VIAL IVP PRN (09:57)
[2017-12-08] MEDS ORDERED: LABETALOL HCL 5 MG/ML 20 ML MDV IVP PRN (09:57)
[2017-12-08] MEDS ORDERED: HYDROmorphONE/DILAUDID 2 MG/ML INJ IVP PRN (09:57)
[2017-12-08] MEDS ORDERED: ALBUTEROL 3 ML DEYVIAL IH PRN (09:57)
[2017-12-08] MEDS ORDERED: PROMETHAZINE HCL 25 MG/ML INJ IVP PRN (09:57)
[2017-12-08] MEDS ORDERED: ACETAMINOPHEN 500 MG TAB PO PRN (09:57)
[2017-12-08] MEDS ORDERED: NALOXONE HCL 0.4 MG/ML INJ IVP PRN (09:57)
--- NOTE | 2017-12-08 09:59 | POSTANESTH ---
Post Anesthetic Evaluation Cardiovascular Status: Normal, Stable Respiratory Status: Normal, Stable Level of Consciousness/Mental Status: Can Participate in Eval Pain Control: Adequate, Prn Tx Ordered Nausea/Vomiting Control: Adequate, Prn Tx Ordered Complications Possibly Related to Anesthesia: None Noted
--- NOTE | 2017-12-08 10:48 | POSTOPPROG ---
Post Op Note Date of Operation: 12/08/17 Surgeon: Jacob Mcarthur Shuttle Hand: Angela Morris Anesthesiologist: Jason Banks Anesthesia: GET(General Endotracheal) Pre-op Diagnosis: CRF Post-op Diagnosis: same Procedure: lap guided PD catheter placement Findings: good in and out flow Inf/Abcess present in the surg proc area at time of surgery?: No EBL: Minimal Complications: none
[2017-12-08] MEDS: fentaNYL 100 MCG/2 ML INJ IVP PRN ×3 (11:10→11:32)
[2017-12-08] MEDS ORDERED: oxyCODONE IR 5 MG TAB ONE ×2 (12:20→13:36)
[2017-12-08] MEDS: oxyCODONE IR 5 MG TAB PO PRN ×2 (12:21→13:40)
--- NOTE | 2017-12-08 12:55 | GOP ---
[f rep st] OPERATIVE REPORT DATE OF OPERATION: 12/08/2017 SURGEON: Jacob Mcarthur MD CIRCULAR HEAD SAW OPERATOR: Angela Morris P.A.-C. ANESTHESIOLOGIST: Dr. Banks . PREOPERATIVE DIAGNOSIS: Chronic renal failure. POSTOPERATIVE DIAGNOSIS: Chronic renal failure. PROCEDURE PERFORMED: Laparoscopic peritoneal dialysis catheter placement. FINDINGS: The patient was found to have good flow and good return from the catheter. DESCRIPTION OF PROCEDURE: Patient was taken to the operating room where he received satisfactory general endotracheal anesthesia by Dr. Banks. Placed in supine position, prepped and draped in the usual sterile fashion. Left abdominal incision was made above the umbilicus. Dissection was carried down to the rectus sheath which was incised. A Veress needle was introduced. Pneumoperitoneum was established. A 10 mm trocar was introduced. Laparoscope introduced. Good visualization was obtained. A second trocar was placed just distal to this in the left side of the abdomen. A swan neck catheter was introduced and positioned in the pelvis directly. The 10 mm trocar was removed. The initial Dacron cuff was secured underneath the fascia with 0 Vicryl sutures. The 2nd cuff was brought out in the subcu and the catheter was brought out through the other trocar site. The abdomen was instilled with 450 cc of saline and returned half of that relatively quickly and the drainage procedure was discontinued. The wound was closed with 3-0 Vicryl for the subcu and a 4-0 Monocryl subcuticular stitch for the skin. The wound was infiltrated with 0.5% Marcaine. There were no complications. Blood loss negligible. Taken to recovery room in good condition. /[id number]/MODL MTDD
[2017-12-08 14:12] VITALS: BP 134/68
== END 2017-12-08 14:00 | disposition home or self-care (01) ==
LOC: FSGY 07:54
PROVIDERS: ATTEND Surgery
PROC: 0WHG43Z Insertion of Infusion Device into Peritoneal Cavity, Percutaneous Endoscopic Approach (ICD-10-PCS; principal; 2017-12-08 09:15)
DX: N18.4 Chronic kidney disease, stage 4 (severe) (principal); I25.10 Atherosclerotic heart disease of native coronary artery without angina pectoris; E03.9 Hypothyroidism, unspecified; I13.0 Hypertensive heart and chronic kidney disease with heart failure and stage 1 through stage 4 chronic kidney disease, or unspecified chronic kidney disease; I50.9 Heart failure, unspecified; E78.5 Hyperlipidemia, unspecified; G47.30 Sleep apnea, unspecified; Z79.82 Long term (current) use of aspirin; Z87.891 Personal history of nicotine dependence; Z95.5 Presence of coronary angioplasty implant and graft; Z95.0 Presence of cardiac pacemaker; Z82.49 Family history of ischemic heart disease and other diseases of the circulatory system
CPT/HCPCS: C1750; J0690; J1100; J2405; J2704; J3010

== ENCOUNTER 2018-03-02 04:18 | Emergency (ER) | payer OTHER, MEDICARE ==
[2018-03-02] MEDS ORDERED: ONDANSETRON 4 MG/2 ML VIAL IVP ONE (04:39)
[2018-03-02] MEDS ORDERED: HYDROmorphONE/DILAUDID 2 MG/ML INJ IVP ONE (04:39)
[2018-03-02] MEDS ORDERED: NS 1,000 ML IV ONE (04:39)
--- NOTE | 2018-03-02 04:42 | EDPHY ---
H & P Stated Complaint: RLQ ABD PAIN Time Seen by Provider: 03/02/18 04:40 HPI/ROS: HPI CHIEF COMPLAINT: Right lower quadrant abdominal pain since 11:00 p.m.. HISTORY OF PRESENT ILLNESS: 82-year-old male, he has a history of CHF, left- sided chest pacemaker, as well as chronic kidney disease and has a peritoneal dialysis catheter that he does not use yet. He presents emergency room by private vehicle with right lower quadrant abdominal pain that he has had since 11:00 p.m. Last night it is now close to 5:00 a.m.. He has not had any vomiting , denies any diarrhea, denies chest pain or shortness of breath. Describes the pain as constant right lower quadrant. He denies any urinary symptoms, denies testicular pain, denies fever, denies diarrhea denies chest pain or shortness of breath. Past Medical History: CHF, left chest pacemaker, chronic kidney disease, SBO, thyroid disease Past Surgical History: Peritoneal dialysis catheter enters the left lower abdomen, left chest pacemaker, cholecystectomy Social History: Denies daily use drugs alcohol tobacco. Family History: Noncontributory ROS REVIEW OF SYSTEMS: A comprehensive 10 point review of systems is otherwise negative aside from elements mentioned in the history of present illness. Exam Constitutional nontoxic appearing in no acute distress triage nursing summary reviewed, vital signs reviewed, awake/alert. Eyes normal conjunctivae and sclera, EOMI, PERRLA. HENT normal inspection, atraumatic, moist mucus membranes, no epistaxis, neck supple/ no meningismus, no raccoon eyes. Respiratory clear to auscultation bilaterally, normal breath sounds, no respiratory distress, no wheezing. Cardiovascular rate normal, regular rhythm, no murmur, no edema, distal pulses normal. Gastrointestinal tender palpation right lower quadrant, no rebound, no guarding, normal bowel sounds, no distension, no pulsatile mass. Genitourinary no CVA tenderness. Musculoskeletal no midline vertebral tenderness, full range of motion, no calf swelling, no tenderness of extremities, no meningismus, good pulses, neurovascularly intact. Skin pink, warm, & dry, no rash, skin atraumatic. Neurologic awake, alert and oriented x 3, AAOx3, moves all 4 extremities equally, motor intact, sensory intact, CN II-XII intact, normal cerebellar, normal vision, normal speech. Psychiatric normal mood/affect. Heme/Lymph/Immune no lymphadenopathy. Differential diagnosis includes but is not limited to and in no particular order : Bowel obstruction, appendicitis, diverticulitis, colitis, enteritis, perforated viscus, gastritis, GERD, esophagitis, urinary tract infection, pyelonephritis, kidney stones Medical Decision Making: Plan for this patient IV establishment, IV fluid bolus , IV Dilaudid for pain control, IV Zofran for nausea, CT scan abdomen pelvis without contrast evaluate right lower quadrant pain, UA, and re-evaluate. Re-evaluation: CT scan abdomen pelvis without IV contrast for right lower quadrant pain called to me by Dr. Esvin Salgado. Appendix is visualized on a noncontrast scan. No evidence of acute appendicitis. There is constipation on the right side. Peritoneal dialysis catheter does transverse the abdomen to the right side there is no localized inflammation seen. CT scan does not reveal any acute inflammatory process. Constipation present. Right-sided. This may be the cause of his pain. No evidence of appendicitis on CT. Labs reviewed. No high white count. Creatinine and BUN reviewed he has CKD stage 5. Potassium is fine. Electrolytes fine. CT scan shows right-sided constipation. No evidence of appendicitis. Updated patient on lab and CT results. 0700: Long discussion with the patient as well as at bedside. They understand return precautions if worsening abdominal pain fever vomiting return to the ER. Stool softeners. Attala diet. I did re-evaluate him at 7:00 a.m. Abdomen is soft nontender feels better after IV fluids and IV Dilaudid. No peritoneal signs on exam. Nothing to explain clinically here in the emergency room his abdominal pain except for possible constipation. He does have a peritoneal dialysis in but does not use it and there is no signs of infection around the dialysis catheter or insertion site. And no abdominal wall cellulitis. Source: Patient, EMS - Personal History Current Tetanus Diphtheria and Acellular Pertussis (TDAP): Unsure - Medical/Surgical History Hx Asthma: No Hx Chronic Respiratory Disease: No Hx Diabetes: No Hx Cardiac Disease: Yes Hx Renal Disease: Yes Hx Cirrhosis: No Hx Alcoholism: No Hx HIV/AIDS: No Hx Splenectomy or Spleen Trauma: No Other PMH: MED HX-HYPOTHYROID,CHOLESTEROL,HTN,KIDNEY FAILURE stage 5,DILATED CARDIAC MYOPATHY,. SURG-DANA,BOWEL OBSTRUCTION,PACE MAKER-DUAL CHAMBER, CHRONIC ANGINA, CAD W/STENTS - Social History Smoking Status: Former smoker Constitutional: Initial Vital Signs Temperature (C) 36.4 C 03/02/18 04:24 Heart Rate 69 03/02/18 04:24 Respiratory Rate 16 03/02/18 04:24 Blood Pressure 176/87 H 03/02/18 04:24 O2 Sat (%) 97 03/02/18 04:24 O2 Delivery Mode Room Air Allergies/Adverse Reactions: adhesive [Adhesive] Allergy (Verified 12/07/17 17:36) Home Medications: Medication Instructions Recorded Atorvastatin Calcium [Lipitor 20 20 mg PO HS 11/21/15 mg (*)] Calcitriol [Calcitriol (*)] 0.25 mcg PO MOFR 11/21/15 Levothyroxine [Synthroid 25 mcg 25 mcg PO DAILY06 11/21/15 (*)] Herbals/Supplements -Info Only 1 ea PO DAILY 03/24/17 Multivitamins [Multivitamin (*)] 1 each PO DAILY@12 03/24/17 Clopidogrel Bisulfate [Plavix (*)] 75 mg PO DAILY #30 tab 10/23/17 Pantoprazole Sodium 12/07/17 Polyethylene Glycol 3350 [Miralax 17 gm PO DAILY #4 pkt 03/02/18 17 gm (*)] Medical Decision Making - Data Points Laboratory Results: Laboratory Results 03/02/18 04:45 03/02/18 04:45 03/02/18 03/02/18 03/02/18 05:30 04:45 04:45 WBC RBC Hgb Hct MCV MCH MCHC RDW Plt Count MPV Neut % (Auto) Lymph % (Auto) [place] % (Auto) Eos % (Auto) Baso % (Auto) Nucleat RBC Rel Count Absolute Neuts (auto) Absolute Lymphs (auto) Absolute Monos (auto) Absolute Eos (auto) Absolute Basos (auto) Absolute Nucleated RBC Immature Gran % Immature Gran # PT 14.8 SEC SEC (12.0-15.0) INR 1.14 (0.83-1.16) APTT 37.1 SEC SEC (23.0-38.0) VBG Lactic Acid Sodium 141 mEq/L mEq/L (135-145) Potassium 4.6 mEq/L mEq/L (3.3-5.0) Chloride 107 mEq/L mEq/L (97-110) Carbon Dioxide 20 mEq/l L mEq/l (22-31) Anion Gap 14 mEq/L mEq/L (8-16) BUN 48 mg/dL H mg/dL (7-23) Creatinine 3.6 mg/dL H mg/dL (0.7-1.3) Estimated GFR 16 Glucose 98 mg/dL mg/dL (70-100) Calcium 9.5 mg/dL mg/dL (8.5-10.4) Total Bilirubin 0.5 mg/dL mg/dL (0.1-1.4) Conjugated Bilirubin 0.3 mg/dL mg/dL (0.0-0.5) Unconjugated Bilirubin 0.2 mg/dL mg/dL (0.0-1.1) AST 19 IU/L IU/L (17-59) ALT 25 IU/L IU/L (21-72) Alkaline Phosphatase 77 IU/L IU/L (38-126) Total Protein 7.0 g/dL g/dL (6.3-8.2) Albumin 3.9 g/dL g/dL (3.5-5.0) Lipase 210 IU/L IU/L (23-300) Urine Color YELLOW Urine Appearance CLEAR Urine pH 6.0 (5.0-7.5) Ur Specific [place] 1.010 (1.002-1.030) Urine Protein 2+ H (NEGATIVE) Urine Ketones NEGATIVE (NEGATIVE) Urine Blood NEGATIVE (NEGATIVE) Urine Nitrate NEGATIVE (NEGATIVE) Urine Bilirubin NEGATIVE (NEGATIVE) Urine Urobilinogen NEGATIVE EU EU (0.2-1.0) Ur Leukocyte Esterase NEGATIVE (NEGATIVE) Urine RBC 1-3 /hpf /hpf (0-3) Urine WBC 1-3 /hpf /hpf (0-3) Ur Epithelial Cells NONE SEEN /lpf /lpf (NONE-1+) Urine Mucus TRACE /lpf /lpf (NONE-1+) Urine Glucose NEGATIVE (NEGATIVE) 03/02/18 03/02/18 04:45 04:45 WBC 5.84 10^3/uL 10^3/uL (3.80-9.50) RBC 3.64 10^6/uL L 10^6/uL (4.40-6.38) Hgb 11.1 g/dL L g/dL (13.7-17.5) Hct 33.8 % L % (40.0-51.0) MCV 92.9 fL fL (81.5-99.8) MCH 30.5 pg pg (27.9-34.1) MCHC 32.8 g/dL g/dL (32.4-36.7) RDW 12.7 % % (11.5-15.2) Plt Count 210 10^3/uL 10^3/uL (150-400) MPV 10.6 fL fL (8.7-11.7) Neut % (Auto) 59.4 % % (39.3-74.2) Lymph % (Auto) 21.9 % % (15.0-45.0) [place] % (Auto) 13.9 % H % (4.5-13.0) Eos % (Auto) 4.1 % % (0.6-7.6) Baso % (Auto) 0.5 % % (0.3-1.7) Nucleat RBC Rel Count 0.0 % % (0.0-0.2) Absolute Neuts (auto) 3.47 10^3/uL 10^3/uL (1.70-6.50) Absolute Lymphs (auto) 1.28 10^3/uL 10^3/uL (1.00-3.00) Absolute Monos (auto) 0.81 10^3/uL H 10^3/uL (0.30-0.80) Absolute Eos (auto) 0.24 10^3/uL 10^3/uL (0.03-0.40) Absolute Basos (auto) 0.03 10^3/uL 10^3/uL (0.02-0.10) Absolute Nucleated RBC 0.00 10^3/uL 10^3/uL (0-0.01) Immature Gran % 0.2 % % (0.0-1.1) Immature Gran # 0.01 10^3/uL 10^3/uL (0.00-0.10) PT INR APTT VBG Lactic Acid 0.1 mmol/L L mmol/L (0.7-2.1) Sodium Potassium Chloride Carbon Dioxide Anion Gap BUN Creatinine Estimated GFR Glucose Calcium Total Bilirubin Conjugated Bilirubin Unconjugated Bilirubin AST ALT Alkaline Phosphatase Total Protein Albumin Lipase Urine Color Urine Appearance Urine pH Ur Specific Vina Urine Protein Urine Ketones Urine Blood Urine Nitrate Urine Bilirubin Urine Urobilinogen Ur Leukocyte Esterase Urine RBC Urine WBC Ur Epithelial Cells Urine Mucus Urine Glucose Medications Given: Discontinued Medications Hydromorphone HCl (Dilaudid) 0.5 mg IVP EDNOW ONE Stop: 03/02/18 04:40 Last Admin: 03/02/18 04:50 Dose: 0.5 mg Sodium Chloride (Ns) 1,000 mls @ 0 mls/hr IV EDNOW ONE; Wide Open PRN Reason: Protocol Stop: 03/02/18 04:40 Last Admin: 03/02/18 04:58 Dose: 1,000 mls Ondansetron HCl (Zofran) 4 mg IVP EDNOW ONE Stop: 03/02/18 04:40 Last Admin: 03/02/18 04:50 Dose: 4 mg Departure - Departure Disposition: Home, Routine, Self-Care Clinical Impression: Acute constipation Condition: Good Instructions: Constipation (ED) Additional Instructions: 1. [place] diet over the next 24-48 hours. 2. MiraLax as prescribed. 3. If your abdominal pain becomes worse you have vomiting or fever return to the emergency room. Referrals: James Young DO [Primary Care Provider] - As per Instructions Prescriptions: Polyethylene Glycol 3350 [Miralax 17 gm (*)] 17 gm PO DAILY #4 pkt
[2018-03-02 05:26] LABS: PLATELET COUNT 210 10^3/uL (150-400)
[2018-03-02 05:28] LABS: INR 1.14 (0.83-1.16); PROTIME(PATIENT) 14.8 SEC (12.0-15.0)
[2018-03-02 07:04] VITALS: BP 145/67
== END 2018-03-02 07:04 | disposition home or self-care (01) ==
DX: K59.00 Constipation, unspecified (principal); I50.9 Heart failure, unspecified; N18.6 End stage renal disease; I13.2 Hypertensive heart and chronic kidney disease with heart failure and with stage 5 chronic kidney disease, or end stage renal disease; I25.810 Atherosclerosis of coronary artery bypass graft(s) without angina pectoris; E86.9 Volume depletion, unspecified; Z87.891 Personal history of nicotine dependence; Z95.0 Presence of cardiac pacemaker; Z90.49 Acquired absence of other specified parts of digestive tract
CPT/HCPCS: 74176; 96361; 96374; 96375; 99285; J1170; J2405

== ENCOUNTER → 2018-04-27 | Outpatient (CLI) | payer OTHER, MEDICARE | LOC: BHFA 14:15 | PROVIDERS: ATTEND Nurse Practitioner Adult Health | DX: I49.3 Ventricular premature depolarization (principal); I25.10 Atherosclerotic heart disease of native coronary artery without angina pectoris; Z95.0 Presence of cardiac pacemaker ==

== ENCOUNTER → 2018-07-19 | Outpatient (CLI) | payer OTHER, MEDICARE | LOC: BHLMT 11:30 | PROVIDERS: ATTEND Internal Medicine Cardiovascular Disease | DX: I25.10 Atherosclerotic heart disease of native coronary artery without angina pectoris (principal); I35.0 Nonrheumatic aortic (valve) stenosis | CPT/HCPCS: 93306-PO ==

== ENCOUNTER → 2018-08-18 | Outpatient (CLI) | payer OTHER, MEDICARE | END | disposition home or self-care (01) | LOC: CIMAGING 15:36 | PROVIDERS: ATTEND Internal Medicine Nephrology | DX: N28.1 Cyst of kidney, acquired (principal); Z99.2 Dependence on renal dialysis | CPT/HCPCS: 76770-PO ==

== ENCOUNTER 2018-08-29 09:12 | Emergency (ER) | payer OTHER, MEDICARE ==
--- NOTE | 2018-08-29 09:34 | EDPHY ---
H & P Stated Complaint: diarrhea Time Seen by Provider: 08/29/18 09:13 HPI/ROS: 82 yo M presents c/o nausea, vomiting and diarrhea for 2 days. States his vomit this morning looked dark. Pt also with fever and chills. He is on peritoneal dialysis and has continued that despite not feeling well. He denies chest pain, shortness of breath and states he only briefly had crampy abdominal pain. Review of systems As per HPI General positive fever chills and weakness HEENT no eye pain no eye discharge. No eye redness, no sore throat Respiratory no cough, no shortness of breath Cardiac no chest pain, no peripheral edema GI pos abdominal pain, positive nausea positive vomiting positive diarrhea no flank pain, no hematuria, no dysuria Musculoskeletal no myalgias, no joint pain Heme no easy bruising, no easy bleeding Endo no polyuria, no polydipsia Skin no rashes, no pruritus Neuro no syncope, no dizziness, no headaches Psych is no suicidal ideation, no homicidal ideation Source: Patient Exam Limitations: No limitations - Personal History Current Tetanus Diphtheria and Acellular Pertussis (TDAP): Yes Tetanus Vaccine Date: unsure - Medical/Surgical History Hx Asthma: No Hx Chronic Respiratory Disease: No Hx Diabetes: No Hx Cardiac Disease: Yes Hx Renal Disease: Yes Hx Cirrhosis: No Hx Alcoholism: No Hx HIV/AIDS: No Hx Splenectomy or Spleen Trauma: No Other PMH: MED HX-HYPOTHYROID,CHOLESTEROL,HTN,KIDNEY FAILURE stage 5,DILATED CARDIOMYOPATHY,. SURG-DANA,BOWEL OBSTRUCTION,PACE MAKER-DUAL CHAMBER, CHRONIC ANGINA, CAD W/STENTS - Family History Significant Family History: No pertinent family hx - Social History Smoking Status: Former smoker Alcohol Use: None Drug Use: None - Physical Exam Exam: 82 yo M alert and oriented appears ill HEENT atraumatic normocephalic, extraocular muscles intact, anicteric Oropharynx negative for erythema negative exudate, tolerating own secretions mucosa dry Neck supple no meningismus Lungs clear to auscultation bilaterally Heart regular rate and rhythm without murmur rub or gallop Abdomen nondistended normoactive bowel sounds soft nontender, peritoneal dialysis cath no swelling or erythema mild epigastric tenderness, no rebound or guarding Back no CVA tenderness, no step-offs, no spinal tenderness Extremities no cyanosis clubbing or edema Neuro alert and oriented, no focal deficits Constitutional: Initial Vital Signs Temperature (C) 36.7 C 08/29/18 09:19 Heart Rate 66 08/29/18 09:19 Respiratory Rate 16 08/29/18 09:19 Blood Pressure 108/64 08/29/18 09:19 O2 Sat (%) 95 08/29/18 09:19 O2 Delivery Mode Room Air O2 (L/minute) 2 Allergies/Adverse Reactions: adhesive [Adhesive] Allergy (Verified 08/29/18 09:23) Home Medications: Medication Instructions Recorded Atorvastatin Calcium [Lipitor 20 20 mg PO HS 11/21/15 mg (*)] Calcitriol [Calcitriol (*)] 0.25 mcg PO MOFR 11/21/15 Levothyroxine [Synthroid 25 mcg 25 mcg PO DAILY06 11/21/15 (*)] Herbals/Supplements -Info Only 1 ea PO DAILY 03/24/17 Multivitamins [Multivitamin (*)] 1 each PO DAILY@12 03/24/17 Clopidogrel Bisulfate [Plavix (*)] 75 mg PO DAILY #30 tab 10/23/17 Pantoprazole Sodium 12/07/17 Polyethylene Glycol 3350 [Miralax 17 gm PO DAILY #4 pkt 03/02/18 17 gm (*)] Metoprolol Tartrate 08/29/18 Medical Decision Making - Diagnostics Imaging Results: Imaging Impressions Chest X-Ray 08/29/18 10:18 Impression: 1. No pneumonia. 2. Chronic mild airways disease and stigmata of cardiovascular disease. ED Course/Re-evaluation: Pt seen and evaluated for n,v,d. IV established and labs drawn, Stool sample -liquid greenish brown sent for GI pathogen panel IV normal saline started CBC wnl lipase neg lfts wnl lactate wnl gi pathogen panel pos norovirus and pos ecoli CXR no infiltrate Imp Dehydration Severe diarrhea-norovirus, ecoli Plan I offered the patient overnight admission for continued hydration, he stated he feels markedly improved and wants to go home. Advised he can return for any worsening also advised to follow up with his primary care next week Differential Diagnosis: Differential diagnosis considered but not limited to Gastroenteritis, pancreatitis, appendicitis, cholecystitis, enteritis, bowel obstruction - Data Points Laboratory Results: 08/29/18 08/29/18 08/29/18 10:02 10:02 09:50 POC Hgb 13.6 gm/dL L gm/dL (13.7-17.5) POC Hct 40 % % (40-51) POC Sodium 138 mEq/L mEq/L (135-145) POC Potassium 3.7 mEq/L mEq/L (3.3-5.0) POC Chloride 100 mEq/L mEq/L (97-110) POC BUN 39 mg/dL H mg/dL (7-23) POC Creatinine 4.2 mg/dL H mg/dL (0.7-1.3) POC Glucose 133 mg/dL H mg/dL (70-100) POC Lactic Acid Eleazar 1.9 mmol/L mmol/L (0.7-2.1) Total Bilirubin 0.5 mg/dL mg/dL (0.1-1.4) Conjugated Bilirubin 0.3 mg/dL mg/dL (0.0-0.5) Unconjugated Bilirubin 0.2 mg/dL mg/dL (0.0-1.1) AST 33 IU/L IU/L (17-59) ALT 30 IU/L IU/L (21-72) Alkaline Phosphatase 82 IU/L IU/L (38-126) Total Protein 6.5 g/dL g/dL (6.3-8.2) Albumin 3.7 g/dL g/dL (3.5-5.0) Lipase 98 IU/L IU/L (23-300) Microbiology Results: MICROBIOLOGY 08/29/18 09:38 Stool Gastrointestinal Tract Panel (PCR) - Final Norovirus Gi/Gii E.coli Enteropathogenic(Epec) Medications Given: Discontinued Medications Sodium Chloride (Ns) 1,000 mls @ 0 mls/hr IV ONCE ONE PRN Reason: Wide Open Stop: 08/29/18 09:44 Last Admin: 08/29/18 10:00 Dose: 1,000 mls Sodium Chloride (Ns) 1,000 mls @ 0 mls/hr IV ONCE ONE PRN Reason: Wide Open Stop: 08/29/18 11:14 Last Admin: 08/29/18 11:18 Dose: 1,000 mls Ondansetron HCl (Zofran) 4 mg IVP EDNOW ONE Stop: 08/29/18 09:44 Last Admin: 08/29/18 10:02 Dose: 4 mg Ondansetron HCl (Zofran Odt 4 Mg Prepack#2) 1 btl TAKEHOME EDNOW ONE Stop: 08/29/18 13:45 Last Admin: 08/29/18 13:52 Dose: 1 btl Ondansetron HCl (Zofran Odt 4 Mg Prepack#2) 1 btl TAKEHOME EDNOW ONE Stop: 08/29/18 13:52 Last Admin: 08/29/18 13:53 Dose: Not Given Point of Care Test Results: CBC CBC Collection Date 08/29/18 CBC Collection Time 09:50 WBC 8.3 RBC 4.33 HGB 13.6 HCT 39.0 PLT 212 Neut # 7.2 Neut 86.9 LYMPH # 0.4 LYMPH 4.9 Other WBC # 0.7 Other WBC 8.2 MCV 90.1 Chemistry 08/29/18 10:02 POC Sodium 138 mEq/L mEq/L (135-145) POC Potassium 3.7 mEq/L mEq/L (3.3-5.0) POC Chloride 100 mEq/L mEq/L (97-110) POC BUN 39 mg/dL H mg/dL (7-23) POC Creatinine 4.2 mg/dL H mg/dL (0.7-1.3) POC Glucose 133 mg/dL H mg/dL (70-100) Blood Gas/Lactic Acid-Venous 08/29/18 10:02 POC Lactic Acid Eleazar 1.9 mmol/L mmol/L (0.7-2.1) ISTAT H&H 08/29/18 10:02 POC Hgb 13.6 gm/dL L gm/dL (13.7-17.5) POC Hct 40 % % (40-51) Influenza PCR Flu Nasal Swab Collection Date 08/29/18 Flu Nasal Swab Collection Time 10:25 Influenza A Result Not Detected Influenza B Result Not Detected Departure - Departure Disposition: Home, Routine, Self-Care Clinical Impression: Enteritis due to Norovirus, Chronic renal failure Condition: Good Instructions: Acute Diarrhea (ED) Additional Instructions: Return if worsening, as you may need to be admitted to the hospital for ongoing hydration. Referrals: James Young, DO [Primary Care Provider] - As per Instructions
[2018-08-29] MEDS ORDERED: NS 1,000 ML IV ONE ×2 (09:43→11:13)
[2018-08-29] MEDS ORDERED: ONDANSETRON 4 MG/2 ML VIAL IVP ONE (09:43)
[2018-08-29] MEDS ORDERED: ONDANSETRON 4MG PREPACK#2 BTL TAKEHOME ONE ×2 (13:44→13:51)
[2018-08-29 14:03] VITALS: BP 112/72
== END 2018-08-29 14:00 | disposition home or self-care (01) ==
LOC: CED 09:12
DX: A08.11 Acute gastroenteropathy due to Norwalk agent (principal); I12.0 Hypertensive chronic kidney disease with stage 5 chronic kidney disease or end stage renal disease; N18.5 Chronic kidney disease, stage 5; I25.10 Atherosclerotic heart disease of native coronary artery without angina pectoris; Z95.5 Presence of coronary angioplasty implant and graft
CPT/HCPCS: 71046; 96361; 96374; J2405; 80076-PO; 82435-PO; 82565-PO; 82947-PO; 83605-PO; 84132-PO; 84295-PO; 84520-PO; 85014-PO

== ENCOUNTER 2018-09-01 15:48 | Inpatient (IN) | payer OTHER, MEDICARE ==
[2018-09-01 16:47] LABS: PLATELET COUNT 230 10^3/uL (150-400)
--- NOTE | 2018-09-01 16:57 | EDPHY ---
H & P Time Seen by Provider: 09/01/18 16:13 HPI/ROS: CHIEF COMPLAINT: Abdominal pain, vomiting, diarrhea HISTORY OF PRESENT ILLNESS: Patient is an 82-year-old male on peritoneal dialysis with kidney failure and cardiac disease who presents to the emergency department with nausea, vomiting and diarrhea. His symptoms started on the 27 of August. He was seen at [facility] on 08/29/2018. He was diagnosed with norovirus and E coli. The patient was discharged from the emergency department and upon returning home mildly improved. However today he began to worsen. He developed increasing abdominal pain. Increasing distension. Patient has ongoing nonbloody diarrhea. No vomiting today. No fevers or chills. REVIEW OF SYSTEMS: 10 systems were reveiwed and are negative with the exception of the elements mentioned in the history of present illness. Past Medical/Surgical History: Includes hypothyroidism, hypercholesterolemia, hypertension, kidney failure, bowel obstruction, coronary artery disease Past surgical history: Includes cholecystectomy, pacemaker placement, stent placement, peritoneal dialysis placement Social history: Patient lives at home Smoking Status: Former smoker Physical Exam: Vitals noted. No fever. GENERAL: No acute distress, alert. HEENT: Eyes normal to inspection, normal pharynx, no signs of dehydration. NECK: Normal, supple. RESPIRATORY: Clear to auscultation bilaterally, no rales, rhonchi or wheezing. CVS: Regular rate and rhythm, no rubs, murmurs, or gallops. ABDOMEN: Soft, nontender, mildly distended. Peritoneal dialysis in place. No surrounding erythema or warmth. No organomegaly. BACK: Normal to inspection, no CVA tenderness. SKIN: Normal color, no rash, warm, dry. No pallor. EXTREMITIES: No pedal edema, no calf tenderness, no Homans sign or cords, no joint swelling. NEURO/PSYCH: Alert and oriented, normal mood and affect, normal motor sensory exam. No obvious cranial nerve deficit. Constitutional: Initial Vital Signs Temperature (C) 36.3 C 09/01/18 15:55 Heart Rate 67 09/01/18 15:55 Respiratory Rate 17 09/01/18 15:55 Blood Pressure 135/73 H 09/01/18 15:55 O2 Sat (%) 95 09/01/18 15:55 O2 Delivery Mode Room Air Allergies/Adverse Reactions: adhesive [Adhesive] Allergy (Verified 09/01/18 15:54) Home Medications: Medication Instructions Recorded Atorvastatin Calcium [Lipitor 20 20 mg PO HS 11/21/15 mg (*)] Calcitriol [Calcitriol (*)] 0.25 mcg PO MOFR 11/21/15 Levothyroxine [Synthroid 25 mcg 25 mcg PO DAILY06 11/21/15 (*)] Herbals/Supplements -Info Only 1 ea PO DAILY 03/24/17 Multivitamins [Multivitamin (*)] 1 each PO DAILY@12 03/24/17 Clopidogrel Bisulfate [Plavix (*)] 75 mg PO DAILY #30 tab 10/23/17 Pantoprazole Sodium 12/07/17 Polyethylene Glycol 3350 [Miralax 17 gm PO DAILY #4 pkt 03/02/18 17 gm (*)] Metoprolol Tartrate 08/29/18 Medical Decision Making - Diagnostics Imaging Results: Imaging Impressions Abdomen CT 09/01/18 16:33 Impression: 1. Findings suggesting partial small bowel obstruction. 2. Diverticulosis of the sigmoid colon without evidence for diverticulitis. 3. Other chronic findings as above. Results were called and discussed with Dr. Arely Gómez on 09/01/2018, 18:25. ED Course/Re-evaluation: In the emergency department I discussed possible etiologies with the patient and . I answered all his questions. IV was placed. Laboratory studies were obtained. EKG: Av dual paced complexes Patient's white count is normal. Patient's chemistry panel is notable for a slightly low sodium 131. Potassium is 3.2 %period% creatinine is 3.9. Glucose is 120. The lipase is elevated at 434. T bili is 0.7. AST and ALT are 42 and 31 respectively. Urine is positive for 5 red cells than 1-[address] of the abdomen pelvis: Please refer the dictated report by Dr. Del Castillo. The patient has findings suggesting partial small-bowel obstruction. There diverticulosis of the sigmoid colon with no diverticulitis. I discussed the case with the patient and family. I answered all her questions. I discussed case with Dr. Temple the hospitalist service. She requested I consult renal. 1935: I spoke with Dr. Monroe from renal. He is aware the patient is being admitted to the hospitalist service and they request guidance on his care plan. Differential Diagnosis: My differential includes but is not limited to E coli infection, norovirus infection, peritonitis, small-bowel obstruction, perforation, mass, malignancy, abscess, electrolyte abnormality, sugar abnormality, bacteremia, sepsis - Data Points Laboratory Results: Laboratory Results 09/01/18 16:30 09/01/18 16:30 09/01/18 09/01/18 09/01/18 18:10 17:18 16:30 WBC RBC Hgb Hct MCV MCH MCHC RDW Plt Count MPV Neut % (Auto) Lymph % (Auto) [place] % (Auto) Eos % (Auto) Baso % (Auto) Nucleat RBC Rel Count Absolute Neuts (auto) Absolute Lymphs (auto) Absolute Monos (auto) Absolute Eos (auto) Absolute Basos (auto) Absolute Nucleated RBC Immature Gran % Immature Gran # PT INR APTT VBG Lactic Acid 1.3 mmol/L mmol/L (0.7-2.1) Sodium 131 mEq/L L mEq/L (135-145) Potassium 3.2 mEq/L L mEq/L (3.5-5.2) Chloride 97 mEq/L mEq/L (97-110) Carbon Dioxide 23 mEq/l mEq/l (22-31) Anion Gap 11 mEq/L mEq/L (6-14) BUN 46 mg/dL H mg/dL (7-23) Creatinine 3.9 mg/dL H mg/dL (0.7-1.3) Estimated GFR 15 Glucose 120 mg/dL H mg/dL (70-100) Calcium 8.4 mg/dL L mg/dL (8.5-10.4) Total Bilirubin 0.7 mg/dL mg/dL (0.1-1.4) Conjugated Bilirubin 0.3 mg/dL mg/dL (0.0-0.5) Unconjugated Bilirubin 0.4 mg/dL mg/dL (0.0-1.1) AST 42 IU/L IU/L (17-59) ALT 31 IU/L IU/L (21-72) Alkaline Phosphatase 88 IU/L IU/L (38-126) Total Protein 6.7 g/dL g/dL (6.3-8.2) Albumin 3.9 g/dL g/dL (3.5-5.0) Lipase 434 IU/L H IU/L (23-300) Urine Color YELLOW Urine Appearance CLEAR Urine pH 5.0 (5.0-7.5) Ur Specific [place] 1.015 (1.002-1.030) Urine Protein 2+ H (NEGATIVE) Urine Ketones NEGATIVE (NEGATIVE) Urine Blood 1+ H (NEGATIVE) Urine Nitrate NEGATIVE (NEGATIVE) Urine Bilirubin NEGATIVE (NEGATIVE) Urine Urobilinogen NEGATIVE EU EU (0.2-1.0) Ur Leukocyte Esterase NEGATIVE (NEGATIVE) Urine RBC 3-5 /hpf H /hpf (0-3) Urine WBC 1-3 /hpf /hpf (0-3) Ur Epithelial Cells TRACE /lpf /lpf (NONE-1+) Urine Glucose NEGATIVE (NEGATIVE) 09/01/18 09/01/18 16:30 16:30 WBC 7.23 10^3/uL 10^3/uL (3.80-9.50) RBC 4.25 10^6/uL L 10^6/uL (4.40-6.38) Hgb 13.3 g/dL L g/dL (13.7-17.5) Hct 37.5 % L % (40.0-51.0) MCV 88.2 fL fL (81.5-99.8) MCH 31.3 pg pg (27.9-34.1) MCHC 35.5 g/dL g/dL (32.4-36.7) RDW 12.5 % % (11.5-15.2) Plt Count 230 10^3/uL 10^3/uL (150-400) MPV 10.4 fL fL (8.7-11.7) Neut % (Auto) 70.4 % % (39.3-74.2) Lymph % (Auto) 16.6 % % (15.0-45.0) [place] % (Auto) 12.2 % % (4.5-13.0) Eos % (Auto) 0.4 % L % (0.6-7.6) Baso % (Auto) 0.3 % % (0.3-1.7) Nucleat RBC Rel Count 0.0 % % (0.0-0.2) Absolute Neuts (auto) 5.09 10^3/uL 10^3/uL (1.70-6.50) Absolute Lymphs (auto) 1.20 10^3/uL 10^3/uL (1.00-3.00) Absolute Monos (auto) 0.88 10^3/uL H 10^3/uL (0.30-0.80) Absolute Eos (auto) 0.03 10^3/uL 10^3/uL (0.03-0.40) Absolute Basos (auto) 0.02 10^3/uL 10^3/uL (0.02-0.10) Absolute Nucleated RBC 0.00 10^3/uL 10^3/uL (0-0.01) Immature Gran % 0.1 % % (0.0-1.1) Immature Gran # 0.01 10^3/uL 10^3/uL (0.00-0.10) PT 13.5 SEC SEC (12.0-15.0) INR 1.01 (0.83-1.16) APTT 29.1 SEC SEC (23.0-38.0) VBG Lactic Acid Sodium Potassium Chloride Carbon Dioxide Anion Gap BUN Creatinine Estimated GFR Glucose Calcium Total Bilirubin Conjugated Bilirubin Unconjugated Bilirubin AST ALT Alkaline Phosphatase Total Protein Albumin Lipase Urine Color Urine Appearance Urine pH Ur Specific [place] Urine Protein Urine Ketones Urine Blood Urine Nitrate Urine Bilirubin Urine Urobilinogen Ur Leukocyte Esterase Urine RBC Urine WBC Ur Epithelial Cells Urine Glucose Departure - Departure Disposition: [facility] Inpatient Acute Clinical Impression: Partial small bowel obstruction Abdominal pain Qualifiers: Abdominal location: generalized Qualified Code(s): R10.84 - Generalized abdominal pain Condition: Good Referrals: James Young DO [Primary Care Provider] - As per Instructions
[2018-09-01] MEDS ORDERED: IOPAMIDOL (ISOVUE 370) 100 ML BTL IV ONE (17:11)
[2018-09-01 17:19] LABS: INR 1.01 (0.83-1.16); PROTIME(PATIENT) 13.5 SEC (12.0-15.0)
[2018-09-01] MEDS ORDERED: PROMETHAZINE HCL 25 MG/ML INJ IVP PRN (20:19)
[2018-09-01] MEDS ORDERED: HYDROCODONE/APAP 5/325 TAB PO PRN (20:19)
[2018-09-01] MEDS ORDERED: ACETAMINOPHEN 325 MG TAB PO PRN (20:19)
[2018-09-01] MEDS ORDERED: ONDANSETRON 4 MG/2 ML VIAL IVP PRN (20:19)
[2018-09-01] MEDS ORDERED: oxyCODONE IR 5 MG TAB PO PRN (20:19)
[2018-09-01] MEDS ORDERED: HYDROmorphONE/DILAUDID 1 MG/ML INJ IVP PRN (20:19)
[2018-09-01] MEDS ORDERED: ONDANSETRON DISINTEGRATING 4 MG TAB PO PRN (20:19)
--- NOTE | 2018-09-01 22:40 | CPEKG ---
Test Reason : OPEN Blood Pressure : / mmHG Vent. Rate : 079 BPM Atrial Rate : 000 BPM P-R Int : 137 ms QRS Dur : 176 ms QT Int : 367 ms P-R-T Axes : -46 -47 000 degrees QTc Int : 421 ms A-V dual-paced complexes w/ some inhibition Confirmed by Arely Gómez ([id number]) on 09/01/2018 10:39:48 PM Referred By: Confirmed By:Arely Gómez
--- NOTE | 2018-09-01 23:03 | PDGENHP ---
History and Physical - Chief Complaint n/v/abdominal bloating and pain - History of Present Illness 82 yo M with PMH of ESRD on nocturnal peritoneal dialysis for about the last 6 months and presenting to the ER for the 2nd time in the last week for complaints of nausea, vomiting, diarrhea and abdominal bloating and pain. He was seen at [facility] on 08/29 and at that time was diagnosed with norovirus and e coli enteropathogenic and was sent home for ongoing conservative management. He presents tonight because his symptoms have improved in some ways but worsened in others, he notes his abdomen is now bloated and he is in increasing pain in his abdomen. He is experiencing early satiety and has had issues with eating as it makes him feel very bloated. He has not vomited for a couple of days, he has variable stools--at times very loose, at times constipated. He has not had fever or chills. In the ER an abdominal CT was performed showing partial SBO, he notes he has had this before many years ago following a cholecystectomy and that was treated with MATT surgery. He has not missed any of his peritoneal dialysis sessions other than Thursday night when he was having too much vomiting and diarrhea and did not feel it was safe. History Information - Allergies/Home Medication List Allergies/Adverse Reactions: adhesive [Adhesive] Allergy (Verified 09/01/18 15:54) Home Medications: Atorvastatin Calcium [Lipitor 20 mg (*)] 20 mg PO HS 11/21/15 [Last Taken 1 Day Ago ~12/07/17] Calcitriol [Calcitriol (*)] 0.25 mcg PO MOFR 11/21/15 [Last Taken 1 Day Ago ~05/18] Levothyroxine [Synthroid 25 mcg (*)] 25 mcg PO DAILY06 11/21/15 [Last Taken 1 Day Ago ~12/07/17] Herbals/Supplements -Info Only 1 ea PO DAILY 03/24/17 [Last Taken 1 Day Ago ~05/18] Multivitamins [Multivitamin (*)] 1 each PO DAILY@12 03/24/17 [Last Taken 1 Day Ago ~12/07/17] Pantoprazole Sodium 12/07/17 [Last Taken 1 Day Ago ~12/07/17] Metoprolol Tartrate 08/29/18 [Last Taken Unknown] I have personally reviewed and updated: family history, medical history, social history, surgical history - Past Medical History coronary artery disease, CHF (EF of 40%, as low as 25 in the past), GERD, hypertension, hyperlipidemia Additional medical history: ESRD on chronic PD, followed by [facility]. SBO. hypothyroid. hyperparathyroid - Surgical History Reports: cholecystectomy, pacemaker/AICD, coronary stent Additional surgical history: lysis of adhesions - Family History Positive for: non-pertinent - Social History Smoking Status: Former smoker Alcohol Use: Rarely Drug Use: None Additional social history: , lives with his independently Review of Systems Review of Systems: ROS: 10pt was reviewed & negative except for what was stated in HPI & below Physical Exam Physical Exam: Temp Pulse Resp BP Pulse Ox 36.5 C 35 L 16 122/56 H 96 09/01/18 20:32 09/01/18 20:32 09/01/18 20:32 09/01/18 20:32 09/01/18 20:32 Constitutional: chronically ill appearing, uncomfortable Eyes: PERRL, anicteric sclera Ears, Nose, Mouth, Throat: moist mucous membranes, hearing normal Cardiovascular: regular rate and rhythym, no murmur, rub, or gallop, No edema Respiratory: no respiratory distress, no rales or rhonchi, clear to auscultation Gastrointestinal: tenderness, No normoactive bowel sounds, No guarding, No rebound, No distension Genitourinary: no bladder tenderness Skin: warm, normal color Musculoskeletal: no muscle tenderness Neurologic: AAOx3 Psychiatric: interacting appropriately, not anxious, not encephalopathic Lab Data & Imaging Review 09/01/18 16:30 09/01/18 16:30 WBC 7.23 10^3/uL (3.80-9.50) 09/01/18 16:30 RBC 4.25 10^6/uL (4.40-6.38) L 09/01/18 16:30 Hgb 13.3 g/dL (13.7-17.5) L 09/01/18 16:30 Hct 37.5 % (40.0-51.0) L 09/01/18 16:30 MCV 88.2 fL (81.5-99.8) 09/01/18 16:30 MCH 31.3 pg (27.9-34.1) 09/01/18 16:30 MCHC 35.5 g/dL (32.4-36.7) 09/01/18 16:30 RDW 12.5 % (11.5-15.2) 09/01/18 16:30 Plt Count 230 10^3/uL (150-400) 09/01/18 16:30 MPV 10.4 fL (8.7-11.7) 09/01/18 16:30 Neut % (Auto) 70.4 % (39.3-74.2) 09/01/18 16:30 Lymph % (Auto) 16.6 % (15.0-45.0) 09/01/18 16:30 [place] % (Auto) 12.2 % (4.5-13.0) 09/01/18 16:30 Eos % (Auto) 0.4 % (0.6-7.6) L 09/01/18 16:30 Baso % (Auto) 0.3 % (0.3-1.7) 09/01/18 16:30 Nucleat RBC Rel Count 0.0 % (0.0-0.2) 09/01/18 16:30 Absolute Neuts (auto) 5.09 10^3/uL (1.70-6.50) 09/01/18 16:30 Absolute Lymphs (auto) 1.20 10^3/uL (1.00-3.00) 09/01/18 16:30 Absolute Monos (auto) 0.88 10^3/uL (0.30-0.80) H 09/01/18 16:30 Absolute Eos (auto) 0.03 10^3/uL (0.03-0.40) 09/01/18 16:30 Absolute Basos (auto) 0.02 10^3/uL (0.02-0.10) 09/01/18 16:30 Absolute Nucleated RBC 0.00 10^3/uL (0-0.01) 09/01/18 16:30 Immature Gran % 0.1 % (0.0-1.1) 09/01/18 16:30 Immature Gran # 0.01 10^3/uL (0.00-0.10) 09/01/18 16:30 PT 13.5 SEC (12.0-15.0) 09/01/18 16:30 INR 1.01 (0.83-1.16) 09/01/18 16:30 APTT 29.1 SEC (23.0-38.0) 09/01/18 16:30 VBG Lactic Acid 1.3 mmol/L (0.7-2.1) 09/01/18 17:18 Sodium 131 mEq/L (135-145) L 09/01/18 16:30 Potassium 3.2 mEq/L (3.5-5.2) L 09/01/18 16:30 Chloride 97 mEq/L (97-110) 09/01/18 16:30 Carbon Dioxide 23 mEq/l (22-31) 09/01/18 16:30 Anion Gap 11 mEq/L (6-14) 09/01/18 16:30 BUN 46 mg/dL (7-23) H 09/01/18 16:30 Creatinine 3.9 mg/dL (0.7-1.3) H 09/01/18 16:30 Estimated GFR 15 09/01/18 16:30 Glucose 120 mg/dL (70-100) H 09/01/18 16:30 Calcium 8.4 mg/dL (8.5-10.4) L 09/01/18 16:30 Total Bilirubin 0.7 mg/dL (0.1-1.4) 09/01/18 16:30 Conjugated Bilirubin 0.3 mg/dL (0.0-0.5) 09/01/18 16:30 Unconjugated Bilirubin 0.4 mg/dL (0.0-1.1) 09/01/18 16:30 AST 42 IU/L (17-59) 09/01/18 16:30 ALT 31 IU/L (21-72) 09/01/18 16:30 Alkaline Phosphatase 88 IU/L (38-126) 09/01/18 16:30 Total Protein 6.7 g/dL (6.3-8.2) 09/01/18 16:30 Albumin 3.9 g/dL (3.5-5.0) 09/01/18 16:30 Lipase 434 IU/L (23-300) H 09/01/18 16:30 Urine Color YELLOW 09/01/18 18:10 Urine Appearance CLEAR 09/01/18 18:10 Urine pH 5.0 (5.0-7.5) 09/01/18 18:10 Ur Specific [place] 1.015 (1.002-1.030) 09/01/18 18:10 Urine Protein 2+ (NEGATIVE) H 09/01/18 18:10 Urine Ketones NEGATIVE (NEGATIVE) 09/01/18 18:10 Urine Blood 1+ (NEGATIVE) H 09/01/18 18:10 Urine Nitrate NEGATIVE (NEGATIVE) 09/01/18 18:10 Urine Bilirubin NEGATIVE (NEGATIVE) 09/01/18 18:10 Urine Urobilinogen NEGATIVE EU (0.2-1.0) 09/01/18 18:10 Ur Leukocyte Esterase NEGATIVE (NEGATIVE) 09/01/18 18:10 Urine RBC 3-5 /hpf (0-3) H 09/01/18 18:10 Urine WBC 1-3 /hpf (0-3) 09/01/18 18:10 Ur Epithelial Cells TRACE /lpf (NONE-1+) 09/01/18 18:10 Urine Glucose NEGATIVE (NEGATIVE) 09/01/18 18:10 Visualized and Interpreted imaging results: Yes Interpretation: abd CT: partial SBO Visualized and Interpreted EKG results: Yes EKG additional interpertation: AV paced Assessment & Plan Assessment: Abdominal pain (Acute) Partial small bowel obstruction (Acute) 82 yo M with hx of ESRD on chronic PD presenting with abd pain/n/v/diarrhea and constipation in setting of partial SBO # SBO: partial by imaging, decreased bowel sounds and significant tenderness on exam, treating conservatively with bowel rest and pain medications, will hold off on IVF per recommendation by renal unless patient requires prolonged NPO status, no NGT for now as no current n/v, if not improving as expected will need to consult surgery, Dr. Ceja is his usual surgeon # ESRD on peritoneal HD: relatively new to PD, has not missed any sessions, given above another consideration would be for bacterial peritonitis and discussed with renal who will infuse the peritoneal cavity and send for culture/ gram stain, electrolytes are wnl currently # norovirus/EPEC: with those sxs largely improving it seems but now with SBO, if diarrhea recurs consider repeat GI pathogen panel # chronic systolic chf: with EF of 40% and no e/o decompensation on exam today, will monitor, continue home meds # CAD: with hx of stents and no c/o chest pain currently, continue home meds # htn: BP currently wnl, will resume home meds when pharmacy able to confirm medications # chronic medical issues: hypothyroid, hyperparathyroid, gerd, HLD--continue home meds when confirmed # IP status, will require > 48 hours stay given multiple active medical issues Patient new to my care. Old records reviewed and summarized as above. Care plan reviewed with ER doctor and further hx obtained from patients present at bedside.
[2018-09-01] MEDS: HEPARIN 5,000 UNIT/0.5 ML INJ SC SCH (23:57)
[2018-09-02] MEDS: GENTAMICIN 0.1% CREAM TP PRN ×2 (01:55→20:20)
[2018-09-02 05:36] LABS: PLATELET COUNT 183 10^3/uL (150-400)
[2018-09-02] MEDS: HEPARIN 5,000 UNIT/0.5 ML INJ SC SCH ×3 (05:52→21:07)
--- NOTE | 2018-09-02 09:27 | GCON ---
DATE OF CONSULTATION: 09/02/2018 REASON FOR CONSULTATION: Opinion regarding end-stage kidney failure. HISTORY OF PRESENT ILLNESS: The patient is a very pleasant 82-year-old gentleman with end-stage kidn ey failure due to hypertension. He was recently started on peritoneal dialysis after following with Dr. Rose for about 14 years. He has had difficulty with abdominal discomfort and diarrhea for a number of days. He was seen in an Urgent [facility] Center on 08/29/2018, with vomiting, fevers, abdomina l pain, and chills. Stool sample was submitted and came back positive for norovirus and enteropathog enic E coli. He has been treated conservatively. He presented to the emergency department last nigh t with similar symptoms. CT scan showed a possible partial small bowel obstruction. The patient was admitted for pain control, nausea, vomiting, and diarrhea. Peritoneal dialysis was initiated last n ight. Today he says he feels great. He is not having fevers, chills, nausea, vomiting, abdominal pa in. His diarrhea has slowed considerably. No melena, hematochezia, blurry vision, double vision, he adache, orthopnea, paroxysmal nocturnal dyspnea, palpitations, or syncope. He is sitting at the side of his bed eating his breakfast. PAST MEDICAL HISTORY: Significant for: 1. End-stage kidney failure, recently started peritoneal dialysis. 2. Systolic congestive heart failure. 3. Coronary artery disease. 4. Status post coronary artery stenting in the past. 5. Hyperlipidemia. 6. Hypertension. 7. Secondary hyperparathyroidism. 8. Anemia of chronic kidney disease. 9. Hypothyroidism. 10. Gastroesophageal reflux disease. ALLERGIES: To tape. HOME MEDICATIONS: Include: 1. Lipitor 20 mg a day. 2. Calcitriol 0.25 mcg daily. 3. Synthroid 25 mcg daily. 4. Multiple vitamin. 5. Protonix. 6. Metoprolol. CURRENT MEDICATIONS: Include gentamicin cream to his peritoneal dialysis exit site, [place], Zofran, D ilaudid, oxycodone, and Phenergan. FAMILY HISTORY: Negative for renal failure. SOCIAL HISTORY: He is . He is retired. 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 Does not use tobacco, IV or recreational drugs. REVIEW OF SYSTEMS: A complete 12-point review of systems was performed with pertinent positives and negatives as per the previous sections. PHYSICAL EXAMINATION: VITAL SIGNS: Blood pressure 113/41, pulse 74, respirations 16, temperature 36 .6 degrees. GENERAL: He is awake, alert, cooperative. He is in no acute distress. HEENT: Pupils are reactive to light. Extraocular movements are intact. Mucous membranes are moist. NECK: No lym phadenopathy or thyromegaly. HEART: Regular grade 1/6 systolic murmur. No rub. No S3. LUNGS: No rales, rhonchi, or wheezes. ABDOMEN: Soft. Bowel sounds are positive. Nontender, nondistended. His peritoneal dialysis catheter exit site looks fine. EXTREMITIES: No edema, cyanosis, or clubbing . NEUROLOGIC: No asterixis. SKIN: No unusual rashes or lesions. LYMPH: No palpable lymphadenopa thy. MUSCULOSKELETAL: No effusions or tenderness. LABORATORY/IMAGING DATA: WBC 6.3, hemoglobin 11.1, hematocrit 32.5, platelet count 183,000. Serum s odium 132, potassium 3.4, chloride 102, CO2 25, BUN 40, creatinine 3.5, glucose 106, calcium 7.7, alb umin 3.9, lipase 434. Urinalysis: Specific gravity of 1.013, pH 7, negative protein, positive blood , but blood cultures have been drawn and are pending. INR 1.01. Lactic acid 1.3. Abdominal CT scan showed partial small bowel obstruction in the ileum with diverticulosis but no diverticulitis. Stool sample from 08/29/2018 showed enteropathogenic E coli and norovirus. IMPRESSION: 1. End-stage kidney failure, on daily nocturnal peritoneal dialysis. 2. Enteropathogenic coli/norovirus-induced diarrhea. 3. Abdominal pain. 4. Partial small-bowel obstruction on CT scan. 5. Feeling much better today. RECOMMENDATIONS: 1. Complete his peritoneal dialysis today. 2. Peritoneal dialysis to begin earlier tonight so he can get down earlier tomorrow. 3. Pain control and antiemetics as necessary. Thank you for allowing me to participate in the care of your patient. If there are any questions, pl ease do not hesitate to contact us. We will be following along with you. /[id number]/MODL
--- NOTE | 2018-09-02 10:22 | ASMTLACE ---
ZACARIAS Acuity / Level of Answers: Yes Care: Did the patient have an inpatient admission? Comorbidities - select Answers: Congestive heart failure all that apply Coronary Artery Disease Moderate or severe liver or renal disease Other Notes: HTN; Hypothyroid # of Emergency department Answers: 3-4 visits in the last 6 months Score: 15 Date Signed: 09/02/2018 10:22 AM Electronically Signed By:Jackie Thomas
--- NOTE | 2018-09-02 11:04 | PDMN ---
Medical Necessity Medical necessity: [facility] M210 Intestinal Obstruction, 2 days: 82 yo w/ n/v and abd pain dx w/ acute partial small bowel obstruction. NPO, NGT, IVF, surgical consult if not improved w/ conservative medical management. Inpatient only.
--- NOTE | 2018-09-02 13:41 | ASMTCMCOM ---
CM Note CM Note Notes: Patient admitted w abd pain, vomiting. Found to have SBO. If conservative mgmt does not work, will consult surgery. Patient also has a hx of ESRD and is on peritoneal dialysis for this. Patient lives independently with . No home health involvement nor do they think they will need any. I anticipate an independent discharge when patient is feeling better. CM available if needed. Current CM Discharge plan: Independent Date Signed: 09/02/2018 01:40 PM Electronically Signed By:Priscilla Ortega RN
--- NOTE | 2018-09-02 15:05 | HOSPPROG ---
Hospitalist Progress Note Assessment/Plan: 82 yo M with hx of ESRD on chronic PD presenting with abd pain/n/v/diarrhea and constipation in setting of partial SBO. Today is my first encounter w the patient, chart reviewed. # Partial SBO -appears to be resolving -will get a f/u abdominal x ray -eating and drinking well this afternoon # ESRD on peritoneal HD - relatively new to PD -due to abdominal pain, could consider bacterial peritonitis -fluid studies sent, has no pain during my interview, patient said fluid was clear # norovirus + enteropathic e coli -having a few episodes of diarrhea # chronic systolic CHF -EF of 40% and no e/o decompensation on exam # CAD: with hx of stents -resumed Plavix -no c/o chest pain # htn -bp stable # chronic medical issues: hypothyroid, hyperparathyroid, gerd, HLD -resumed home meds #Plan: will continue care, check abdominal x ray today. If stable; will likely dc tomorrow. Subjective: Mc said he is feeling better today. Anxious to go home. Objective: Vital Signs Temp Pulse Resp BP Pulse Ox 36.4 C 74 16 103/62 97 09/02/18 11:10 09/02/18 11:10 09/02/18 11:10 09/02/18 11:10 09/02/18 11:10 Laboratory Results 09/02/18 04:41 09/02/18 04:41 09/01/18 09/02/18 09/03/18 05:59 05:59 05:59 Intake Total 375 Balance 375 PT 13.5 SEC (12.0-15.0) 09/01/18 16:30 INR 1.01 (0.83-1.16) 09/01/18 16:30 - Physical Exam Constitutional: no apparent distress, chronically ill appearing Eyes: PERRL Ears, Nose, Mouth, Throat: hearing normal Cardiovascular: regular rate and rhythym Respiratory: no respiratory distress Gastrointestinal: normoactive bowel sounds, soft, non-tender abdomen Skin: warm Musculoskeletal: generalized weakness Neurologic: AAOx3 Psychiatric: interacting appropriately ICD10 Worksheet Patient Problems: Problems Problem Status Onset Abdominal pain Acute Partial small bowel obstruction Acute Anemia Active Chronic kidney disease stage 3 Active Pneumonia Active Renal failure syndrome Active Angina pectoris Acute Chronic renal failure Acute Elevated brain natriuretic peptide (BNP) level Acute Nausea Acute Stroke Acute Vertigo Acute
[2018-09-02] MEDS ORDERED: ACETAMINOPHEN 325 MG TAB PO PRN (15:33)
[2018-09-02] MEDS: SODIUM BICARBONATE 650 MG TAB PO SCH (16:30)
[2018-09-02] MEDS: METOPROLOL SUCCINATE XR 25 MG TAB PO SCH (16:30)
[2018-09-02] MEDS ORDERED: PANTOPRAZOLE SODIUM 40 MG TAB PO SCH (21:00)
[2018-09-02] MEDS ORDERED: ATORVASTATIN CALCIUM 20 MG TAB PO SCH (21:00)
[2018-09-03] MEDS: HEPARIN 5,000 UNIT/0.5 ML INJ SC SCH ×2 (05:19→13:59)
[2018-09-03] MEDS ORDERED: LEVOTHYROXINE 50 MCG TAB PO SCH (06:00)
[2018-09-03] MEDS: METOPROLOL SUCCINATE XR 25 MG TAB PO SCH (07:51)
[2018-09-03] MEDS: SODIUM BICARBONATE 650 MG TAB PO SCH (07:51)
[2018-09-03] MEDS ORDERED: OMEGA-3 FATTY ACIDS 1,000 MG CAP PO SCH (09:00)
[2018-09-03] MEDS ORDERED: DOCUSATE SODIUM 100 MG CAP PO SCH (09:00)
[2018-09-03] MEDS ORDERED: MULTIVITAMINS 1 EACH TAB PO SCH (09:00)
[2018-09-03] MEDS ORDERED: CLOPIDOGREL BISULFATE 75 MG TAB PO SCH (09:00)
--- NOTE | 2018-09-03 11:33 | HOSPPROG ---
Hospitalist Progress Note Assessment/Plan: 82 yo M with hx of ESRD on chronic PD presenting with abd pain/n/v/diarrhea and constipation in setting of partial SBO. Today is my first encounter w the patient, chart reviewed. # Partial SBO -appears to be resolving -eating and drinking well this afternoon # ESRD on peritoneal HD - relatively new to PD -fluid studies stable # norovirus + enteropathic e coli -having multiple episodes of diarrhea, describes it as pure water -will recheck stool # chronic systolic CHF -EF of 40% and no e/o decompensation on exam # CAD: with hx of stents -resumed Plavix -no c/o chest pain # htn -bp stable # chronic medical issues: hypothyroid, hyperparathyroid, gerd, HLD -resumed home meds #Plan: having multiple bouts of diarrhea, will recheck stool studies. Check chemistry and mag now Subjective: Mc is anxious to be discharged, but says he is concerned he is having multiple watery stools. Objective: Vital Signs Temp Pulse Resp BP Pulse Ox 36.6 C 73 18 124/67 H 96 09/03/18 07:28 09/03/18 07:51 09/03/18 07:28 09/03/18 07:51 09/03/18 07:28 Microbiology 09/02/18 15:30 Gram Stain - Final Peritoneal Fluid - Aspirate Laboratory Results 09/02/18 04:41 09/02/18 04:41 09/02/18 09/03/18 09/04/18 05:59 05:59 05:59 Intake Total 375 1550 Balance 375 1550 PT 13.5 SEC (12.0-15.0) 09/01/18 16:30 INR 1.01 (0.83-1.16) 09/01/18 16:30 - Physical Exam Constitutional: no apparent distress, chronically ill appearing Eyes: PERRL Ears, Nose, Mouth, Throat: hearing normal Cardiovascular: regular rate and rhythym Respiratory: no respiratory distress Gastrointestinal: normoactive bowel sounds, soft, non-tender abdomen Skin: warm Musculoskeletal: full muscle strength Neurologic: AAOx3 Psychiatric: interacting appropriately ICD10 Worksheet Patient Problems: Problems Problem Status Onset Abdominal pain Acute Partial small bowel obstruction Acute Anemia Active Chronic kidney disease stage 3 Active Pneumonia Active Renal failure syndrome Active Angina pectoris Acute Chronic renal failure Acute Elevated brain natriuretic peptide (BNP) level Acute Nausea Acute Stroke Acute Vertigo Acute
[2018-09-03 12:33] VITALS: BP 123/59
[2018-09-03] MEDS ORDERED: POTASSIUM CL 20 MEQ TAB PO ONE (14:54)
--- NOTE | 2018-09-03 15:06 | SOAPPROG ---
SOAP Progress Note Assessment/Plan: Assessment: 82 yo M with PMH significant for ESRD 2/2 HTN on PD admitted with abdominal pain discomfort and diarrhea. CT with partial SBO. Patient feeling better, still with some diarrhea but less than before. Being discharged today. --Resume home PD after discharge Subjective: Patient feeling better. Still having some loose stools but better than before. No abdominal pain. Breathing ok. Some alarms with PD overight which resolved when patient rolled over. Hoping for discharge. Objective: Vital Signs Temp Pulse Resp BP Pulse Ox 36.3 C 70 16 123/59 H 95 09/03/18 12:00 09/03/18 12:00 09/03/18 12:00 09/03/18 12:00 09/03/18 12:00 Microbiology 09/02/18 15:30 Gram Stain - Final Peritoneal Fluid - Aspirate Laboratory Results 09/02/18 04:41 09/03/18 13:25 09/02/18 09/03/18 09/04/18 05:59 05:59 05:59 Intake Total 375 1550 Balance 375 1550 PT 13.5 SEC (12.0-15.0) 09/01/18 16:30 INR 1.01 (0.83-1.16) 09/01/18 16:30 Exam: General- AAO x 3, well-appearing, NAD Eyes- anicteric, no conjunctival injection Pulm- CTAB, no wheezes or rales, breathing comfortably on RA CV- NRRR, no g/m/r, no LE edema Abd- soft, non-tender, non-distended, +BS, PD catheter anchored on necklace Extrem- no LE edema Psych- pleasant, answers questions appropriately ICD10 Worksheet Patient Problems: Problems Problem Status Onset Abdominal pain Acute Partial small bowel obstruction Acute Anemia Active Chronic kidney disease stage 3 Active Pneumonia Active Renal failure syndrome Active Angina pectoris Acute Chronic renal failure Acute Elevated brain natriuretic peptide (BNP) level Acute Nausea Acute Stroke Acute Vertigo Acute
--- NOTE | 2018-09-03 18:19 | PDCONSULT ---
Penetration Tester Note: Request for consultation by Internal Medicine - Beatrice Martinez Reason for consultation small bowel obstruction History of present illness: This is an 82-year-old gentleman 6 months on peritoneal dialysis for end-stage renal failure presented to an outpatient urgent care and was diagnosed with E coli and neural virus. His condition deteriorated who was admitted to the hospital CT scan demonstrated partial small-bowel obstruction. The patient was bloated had early satiety and although had initial diarrhea began to have clinical signs of a small-bowel obstruction. He was admitted to the hospital for evaluation and treatment. Problems Problem Status Onset Anemia Active Chronic kidney disease stage 3 Active Pneumonia Active Renal failure syndrome Active Abdominal pain Acute Angina pectoris Acute Chronic renal failure Acute Elevated brain natriuretic peptide (BNP) level Acute Nausea Acute Partial small bowel obstruction Acute Stroke Acute Vertigo Acute Past surgical history: Cholecystectomy. Herniorrhaphy Home medications: Atorvastatin Calcium [Lipitor 20 mg (*)] 20 mg PO HS 11/21/15 [Last Taken ] Calcitriol [Calcitriol (*)] 0.25 mcg PO MOFR@21 11/21/15 [Last Taken 08/30/18] Multivitamins [Multivitamin (*)] 1 each PO DAILY 03/24/17 [Last Taken 09/01/18] Pantoprazole Sodium [Protonix 40mg (*)] 40 mg PO HS 12/07/17 [Last Taken ] Metoprolol Succinate Xr [Toprol Xl 25 mg (*)] 25 mg PO DAILY 08/29/18 [Last Taken 09/01/18] Acetaminophen [Tylenol 325mg (*)] 325 mg PO DAILY PRN 09/02/18 [Last Taken Unknown] Docusate Sodium [Colace 100 MG (*)] 100 mg PO DAILY 09/02/18 [Last Taken ] Levothyroxine [Synthroid 50 mcg (*)] 50 mcg PO DAILY06 09/02/18 [Last Taken 10/19] Nubieber-3 Fatty Acids [Fish Oil 1000 mg (*)] 1,000 mg PO DAILY 09/02/18 [Last Taken 09/01/18] Sodium Bicarbonate [Na Bicarb] 650 mg PO DAILY 09/02/18 [Last Taken 09/01/18] Allergies: adhesive [Adhesive] Allergy (Verified 09/01/18 15:54) Bleach (Sodium Hypochlorite) Allergy (Verified 09/02/18 10:38) Review of systems: Significant for end-stage renal failure and abdominal bloating diarrhea. Denies chest pain recent weight loss night sweats. All others are negative He is currently alert oriented no distress lungs are clear heart is regular heart tones abdomen is soft nondistended nontender peritoneal dialysis catheter in place no signs of current infection Extremities without significant edema CT scan was reviewed on Pacs Impression/plan resolved small-bowel obstruction possible recurrent norovirus early coli. Would assess his stool again discussed with Dr. Martinez. No signs of spontaneous bacterial peritonitis peritoneal fluid was examined for this. Small-bowel obstruction resolved at this time I think he is safe for discharge at this time. Will follow up in the office p.r.n.
[2018-09-03] MEDS ORDERED: CALCITRIOL 0.25 MCG CAP PO SCH (21:00)
--- NOTE | 2018-09-04 03:51 | GDS ---
DISCHARGE DIAGNOSES: 1. Partial small bowel obstruction, resolved. 2. End-stage renal disease, on peritoneal hemodialysis. 3. Norovirus and enteropathic Escherichia coli. 4. Chronic systolic congestive heart failure. 5. Coronary artery disease. 6. Hypertension. CONSULTATION: Dr. Ben Boston. HISTORY: The patient is a very nice 82-year-old gentleman with a past medical history of end-stage renal disease on nocturnal peritoneal dialysis for the past 6 months. He presented to the ER the 2nd time last week for complaints of nausea, vomiting, and diarrhea as well as abdominal bloating and pain. He [place] [facility] [place] and was diagnosed with norovirus and E coli enteropathogenic and was sent home for conservative management. His symptoms improved, but in a way worsened. He was feeling bloated. In the ER, he had a CT that showed a partial small bowel obstruction. He had this many years ago following a cholecystectomy. Throughout his stay, he had a few abdominal x- rays that showed resolution. I reviewed his care with Dr. Whitt who agrees that this looks like this is resolving. He will follow up with Dr. Whitt or Dr. Ceja in regard to this if this should reoccur. There was also concern that he could have bacterial peritonitis with the abdominal pain. His peritoneal fluid was sent for culture and Gram stain. He did not have an infectious etiology. He is feeling markedly better today and will be discharged home and follow up with his primary care provider. HOSPITAL COURSE PER PROBLEM: 1. Partial small bowel obstruction: He is eating and drinking well. No emesis and feeling well. 2. End-stage renal disease: Stable. 3. Norovirus and enteropathic E coli: He has had a few loose stools today, but not significant amounts. 4. Hypokalemia: Will give him a dose of potassium prior to discharge. Reviewed this with Nephrology. They will check this next week to make sure his potassium levels are stable. 5. Chronic systolic congestive heart failure: He has an EF of 40%. He has no etiology of decompensation on exam. 6. Coronary artery disease: No complaints of chest pain. Resumed his Plavix. 7. Hypertension: Stable. DISCHARGE CONDITION: Stable. Blood pressure is 123/59, heart rate is 70, respiratory rate is 16, O2 sats on room air 95%, temperature is 36.3 Celsius. MEDICATIONS AT DISCHARGE: Please see the EMR. DISCHARGE INSTRUCTIONS: 1. To follow up with the dialysis unit and get his potassium checked next week. 2. Stay well hydrated. 3. Recommending he hold Protonix until his diarrhea resolves. 4. If he develops fever, chills, worsening abdominal pain, or has any issues with vomiting, to return to the ER. Greater than 30 minutes discharging and coordinating the patient's care. /[id number]/MODL MTDD
== END 2018-09-03 15:35 | disposition home or self-care (01) | DRG 388 ==
LOC: OBSVTOIN 20:19 → F3E 20:20
PROVIDERS: ADMIT Internal Medicine; ATTEND Internal Medicine
DX: K56.600 Partial intestinal obstruction, unspecified as to cause (principal); A08.11 Acute gastroenteropathy due to Norwalk agent; B96.20 Unspecified Escherichia coli [E. coli] as the cause of diseases classified elsewhere; I13.2 Hypertensive heart and chronic kidney disease with heart failure and with stage 5 chronic kidney disease, or end stage renal disease; N18.6 End stage renal disease; I50.22 Chronic systolic (congestive) heart failure; I25.10 Atherosclerotic heart disease of native coronary artery without angina pectoris; D63.1 Anemia in chronic kidney disease; E03.9 Hypothyroidism, unspecified; E78.00 Pure hypercholesterolemia, unspecified; Z95.0 Presence of cardiac pacemaker; Z95.5 Presence of coronary angioplasty implant and graft; Z87.891 Personal history of nicotine dependence; Z99.2 Dependence on renal dialysis
CPT/HCPCS: J1644; Q9967

== ENCOUNTER 2018-11-26 06:29 | Day surgery (SDC) | payer OTHER, MEDICARE ==
--- NOTE | 2018-11-23 13:33 | GHP ---
[f rep st] PREOP HISTORY AND PHYSICAL DATE OF ADMISSION: 11/26/2018 The patient is an 83-year-old male, known to us secondary to his dialysis access, who returns for yuniel luation of a right groin lump with pain. Recent CT scan reveals what appears to be a fluid-filled ma ss in the right groin area, with no significant adenopathy. The lump appears to be a fluid-filled he rnia sac although the opening is not large enough for bowel incarceration. It is likely filled with fluid from his peritoneal dialysis filling. He is here to discuss repair. PAST MEDICAL HISTORY: Includes coronary artery disease with coronary stents, cardiomyopathy, dyslipi demia, hypertension, hypothyroidism, ischemic cardiomyopathy, chronic kidney disease, obstructive sle ep apnea, presence of pacemaker. PAST SURGICAL HISTORY: Includes surgery for peritoneal dialysis catheter placement, bowel obstructio n, cholecystectomy, coronary stenting, eye surgery, pacemaker placement. MEDICATIONS: Include acetaminophen, atorvastatin, calcitriol, Centrum Silver multivitamin, Claritin, Colace, fish oil, levothyroxine, meclizine, metoprolol, Nitrostat, pantoprazole, Plavix, sodium bica rbonate. ALLERGIES: No known drug allergies. SOCIAL HISTORY: Patient was born in [place] on a farm. He is a remote tobacco smoker and drinks alcohol on rare occasion. REVIEW OF SYSTEMS: Negative 10-point review of systems aside from the HPI. PHYSICAL EXAMINATION: GENERAL: Reveals a healthy-appearing 83-year-old male, in no acute distress. HEENT: Normocephalic, atraumatic. No lymphadenopathy. Pupils equal and round. Anicteric. CHEST: Clear to auscultation bilaterally. CARDIAC: Regular rate and rhythm. ABDOMEN: Soft, with palpab le fluid-filled mass of the right groin consistent with hernia; it does partially reduce. : No te sticular masses or tenderness. EXTREMITIES: With full range of motion. IMPRESSION: This is an 83-year-old male with multiple comorbidities, both renal and cardiology relat ed, who presents with a symptomatic right inguinal hernia, likely filled with fluid from peritoneal d ialysis. PLAN: Plan is to proceed with an open repair of his right inguinal hernia. Risks and options have b een fully discussed including but not limited to bleeding, infection, nerve injury, bowel injury, ceci dder injury, spermatic cord injury, testicular ischemia, recurrence, healing problems, and other prob lems, and he requests to proceed. /[id number]/MODL
[2018-11-26] MEDS ORDERED: ceFAZolin 2 GM/DEXTROSE 100 ML IV ONE (06:45)
[2018-11-26] MEDS ORDERED: NS 1,000 ML IV ONE (06:49)
[2018-11-26 07:28] LABS: PLATELET COUNT 216 10^3/uL (150-400)
[2018-11-26] MEDS ORDERED: NA BICARBONATE 50 MEQ/50 ML VIAL ONE (07:45)
[2018-11-26] MEDS ORDERED: BUPIVACAINE 0.5% 30 ML SDV ONE (07:45)
[2018-11-26] MEDS ORDERED: LIDOCAINE 1% 300 MG/30 ML SDV ONE (07:45)
--- NOTE | 2018-11-26 07:52 | PDANEPAE ---
ANE Past Medical History - Cardiovascular History Hx Hypertension: Yes Hx Arrhythmias: No Hx Chest Pain: No Hx Coronary Artery / Peripheral Vascular Disease: Yes Hx CHF / Valvular Disease: No Hx Palpitations: No Cardiovascular History Comment: pacer placed for sinus pause in s-replaced with longer-left battery. on Plavix - Pulmonary History Hx COPD: No Hx Asthma/Reactive Airway Disease: No Hx Recent Upper Respiratory Infection: No Hx Oxygen in Use at Home: No Hx Sleep Apnea: No Sleep Apnea Screening Result - Last Documented: Positive Pulmonary History Comment: MARIA TERESA triggers, states has has borderline sleep studies but denies MARIA TERESA dx - Neurologic History Hx Cerebrovascular Accident: No Hx Seizures: No Hx Dementia: No Neurologic History Comment: hx vertigo. dizziness upon rising. occasional hand tremor - Endocrine History Hx Diabetes: No Endocrine History Comment: hypothyroid - Renal History Hx Renal Disorders: Yes Renal History Comment: Peritoneal dialysis daily - Liver History Hx Hepatic Disorders: No - Neurological & Psychiatric Hx Hx Neurological and Psychiatric Disorders: No - Cancer History Hx Cancer: No - Congenital Disorder History Hx Congenital Disorders: No - GI History Hx Gastrointestinal Disorders: Yes Gastrointestinal History Comment: GERD - Other Health History Other Health History: wears glasses for reading. hearing aids. Hx gout - Chronic Pain History Chronic Pain: No - Surgical History Prior Surgeries: PD catheter placement. cholecystectomy. appendectomy. Explor lap-lysis of adhesions. bilat cataract extraction w/IOL. pacmaker insertion ANE Review of Systems Review of Systems: - Exercise capacity METS (RN): 4 METS - Pacemaker Pacemaker Type: Permanent Pacer/Defib Pacemaker Wash And Greaser: Service [place] Pacemaker Model: Evia DR-T Pacemaker Mode: DDD-CLS Pacemaker Set Rate: 70 Date Pacemaker Last Checked: 10-28-2018 ANE Patient History - Allergies Allergies/Adverse Reactions: adhesive [Adhesive] Allergy (Verified 09/01/18 15:54) Bleach (Sodium Hypochlorite) Allergy (Verified 09/02/18 10:38) - Home Medications Home Medications: Atorvastatin Calcium [Lipitor 20 mg (*)] 20 mg PO HS 11/21/15 [Last Taken ] Calcitriol [Calcitriol (*)] 0.25 mcg PO MOFR@21 11/21/15 [Last Taken 11/22/18] Multivitamins [Multivitamin (*)] 1 each PO DAILY 03/24/17 [Last Taken 11/23/18] Pantoprazole Sodium [Protonix 40mg (*)] 40 mg PO HS 12/07/17 [Last Taken ] Metoprolol Succinate Xr [Toprol Xl 25 mg (*)] 25 mg PO DAILY 08/29/18 [Last Taken 11/26/18 04:30] Levothyroxine [Synthroid 50 mcg (*)] 50 mcg PO DAILY06 09/02/18 [Last Taken ] Parrish-3 Fatty Acids [Fish Oil 1000 mg (*)] 1,000 mg PO DAILY 09/02/18 [Last Taken 11/23/18] Sodium Bicarbonate [Na Bicarb] 650 mg PO DAILY 09/02/18 [Last Taken 09/01/18] Colace 11/26/18 [Last Taken 11/25/18 UNKOWN] Miralax 17 gm (*) 11/26/18 [Last Taken 11/25/18] - NPO status NPO Since - Liquids (Date): 11/25/18 NPO Since - Liquids (Time): 21:00 NPO Since - Solids (Date): 11/25/18 NPO Since - Solids (Time): 17:00 - Smoking Hx Smoking Status: Former smoker - Family Anes Hx Family Hx Anesthesia Complications: none ANE Labs/Vital Signs - Labs Result Diagrams: 11/26/18 07:17 11/26/18 07:17 - Vital Signs Blood Pressure: 134/85 Heart Rate: 84 Respiratory Rate: 16 O2 Sat (%): 95 Height: 180.34 cm Weight: 73.936 kg ANE Physical Exam - Airway Neck exam: decreased ROM Mallampati Score: Class 1 - Pulmonary Pulmonary: no respiratory distress - Cardiovascular Cardiovascular: regular rate and rhythym - ASA Status ASA Status: III ANE Anesthesia Plan Anesthesia Plan: GA w LMA, GA with mask
[2018-11-26] MEDS ORDERED: ePHEDrine SULFATE 25 MG/5 ML SYR ONE (08:00)
[2018-11-26] MEDS ORDERED: fentaNYL 100 MCG/2 ML INJ ONE (08:00)
[2018-11-26] MEDS ORDERED: LIDOCAINE 2% 2 ML INJ ONE ×2 (08:00→09:11)
[2018-11-26] MEDS ORDERED: PROPOFOL 200 MG/20 ML VIAL ONE ×2 (08:00)
[2018-11-26] MEDS ORDERED: PHENYLEPHRINE HCL 100 MCG/ML SYR ONE (09:11)
--- NOTE | 2018-11-26 09:17 | POSTOPPROG ---
Post Op Note Date of Operation: 11/26/18 Surgeon: Jacob Mcarthur Ceiling Insulation Blower: Era Anesthesia: IV Sedation Pre-op Diagnosis: RIH Post-op Diagnosis: same Indication: same Procedure: Open RIH repair with mesh Findings: Fluid filled hernia sac Inf/Abcess present in the surg proc area at time of surgery?: No Depth: Deep Incisional (Fascial) EBL: Minimal
[2018-11-26] MEDS ORDERED: LABETALOL HCL 5 MG/ML 20 ML MDV IVP PRN (09:22)
[2018-11-26] MEDS ORDERED: ONDANSETRON 4 MG/2 ML VIAL IVP PRN (09:22)
[2018-11-26] MEDS ORDERED: NALOXONE HCL 0.4 MG/ML INJ IVP PRN (09:22)
[2018-11-26] MEDS ORDERED: fentaNYL 100 MCG/2 ML INJ IVP PRN (09:22)
--- NOTE | 2018-11-26 09:22 | POSTANESTH ---
Post Anesthetic Evaluation Cardiovascular Status: Normal, Stable, Similar to Pre-Op Cond Respiratory Status: Normal, Stable Level of Consciousness/Mental Status: Mildly Sleepy, Arousable Pain Control: Adequate, Prn Tx Ordered Nausea/Vomiting Control: Adequate, Prn Tx Ordered Complications Possibly Related to Anesthesia: None Noted
[2018-11-26 11:30] VITALS: BP 143/99
--- NOTE | 2018-11-27 10:05 | GOP ---
[f rep st] OPERATIVE REPORT DATE OF OPERATION: 11/26/2018 SURGEON: Jacob Mcarthur MD AUTOMATIC STACKER: Suzan Girard, nurse practitioner. ANESTHESIOLOGIST: Dr. Kumar. PREOPERATIVE DIAGNOSIS: Right inguinal hernia. POSTOPERATIVE DIAGNOSIS: Right inguinal hernia. PROCEDURE PERFORMED: Open right inguinal hernia repair with mesh. FINDINGS: Patient was found to have a moderate direct defect with no evidence of an indirect sac. ESTIMATED BLOOD LOSS: Negligible. DESCRIPTION OF PROCEDURE: Patient taken to the operating room where he a received satisfactory gener al laryngeal mask anesthesia by Dr. Kumar, placed in supine position, prepped and draped in usual sterile fashion. An oblique right inguinal incision was made and carried through the subcutaneous t issue. Hemostasis was obtained with electrocautery and 3-0 Vicryl ties. The external oblique was op ened through the external ring. The ilioinguinal nerve was identified and preserved. The cord was m obilized from the floor of the canal. There was no indirect sac. There was a tiny lipoma associated with the cord which was removed with electrocautery. The hernia defect was in the wall of the canal . This was reduced and imbricated with a running 2-0 Vicryl suture, and then a ProGrip polyester mes h patch was placed over the inguinal floor. A split patch was used to pass the limbs around the cord structures. It was then anchored in place with interrupted 0 Surgilon +sutures, securing it to Coop er ligament, to the lacunar ligament, to the inguinal ligament, and the internal oblique fascia. The wound was infiltrated with Marcaine. Cord and nerve were replaced in the anatomic position. Die Designer Apprentice al oblique was closed with a running 2-0 Vicryl suture, subcu with 3-0 Vicryl, and skin with a 4-0 Mo nocryl subcuticular stitch. He tolerated procedure well. There were no complications. /[id number]/MODL
== END 2018-11-26 11:12 | disposition home or self-care (01) ==
LOC: FSGY 06:29
PROVIDERS: ATTEND Surgery
PROC: 0YU50JZ Supplement Right Inguinal Region with Synthetic Substitute, Open Approach (ICD-10-PCS; principal; 2018-11-26 08:15)
DX: K40.90 Unilateral inguinal hernia, without obstruction or gangrene, not specified as recurrent (principal); I25.10 Atherosclerotic heart disease of native coronary artery without angina pectoris; I25.5 Ischemic cardiomyopathy; E78.5 Hyperlipidemia, unspecified; I12.9 Hypertensive chronic kidney disease with stage 1 through stage 4 chronic kidney disease, or unspecified chronic kidney disease; E03.9 Hypothyroidism, unspecified; N18.9 Chronic kidney disease, unspecified; K21.9 Gastro-esophageal reflux disease without esophagitis; G47.33 Obstructive sleep apnea (adult) (pediatric); I49.5 Sick sinus syndrome; Z87.891 Personal history of nicotine dependence; Z82.49 Family history of ischemic heart disease and other diseases of the circulatory system; Z95.0 Presence of cardiac pacemaker; Z95.5 Presence of coronary angioplasty implant and graft; Z99.2 Dependence on renal dialysis
CPT/HCPCS: C1781; J0690; J2370; J2704; J3010